=== PATIENT | male | born 1960 | race Caucasian/White ===

== ENCOUNTER 2017-02-27 10:54 | Emergency (ER) | payer MEDICAID ==
[2017-02-27] MEDS ORDERED: Albuterol/Ipratropium 3.0-0.5 MG/3 ML Neb Soln NEB ONE ×2 (11:02→11:28)
[2017-02-27] MEDS ORDERED: predniSONE 20 MG Tab PO ONE (11:02)
[2017-02-27] MEDS ORDERED: predniSONE 10 MG Tab PO ONE (11:03)
--- NOTE | 2017-02-27 11:14 | EDM.PDOC ---
ED HPI GENERAL MEDICAL PROBLEM - General Chief Complaint: Respiratory Problem Stated Complaint: ASTHMA PROBLEMS Time Seen by Provider: 02/27/17 11:00 - History of Present Illness INITIAL COMMENTS - FREE TEXT/NARRATIVE: HISTORY AND PHYSICAL: History of present illness: This 57-year-old white male presents with a concern of shortness of breath and wheezing he states his asthmatic exacerbation related to recent grass cutting his known history of asthma and uses an inhaler and nebulizer at home. He denies chest pain fever chills nausea vomiting or other complaints Review of systems: As per history of present illness and below otherwise all systems reviewed and negative. Past medical history: As per history of present illness and as reviewed below otherwise noncontributory. Surgical history: As per history of present illness and as reviewed below otherwise noncontributory. Social history: No reported history of drug or alcohol abuse. Family history: As per history of present illness and as reviewed below otherwise noncontributory. Physical exam: HEENT: Atraumatic, normocephalic, pupils reactive, negative for conjunctival pallor or scleral icterus, mucous membranes moist, throat clear, neck supple, nontender, trachea midline. Lungs: Slightly diminished with scattered and expiratory wheezing no rhonchi no crackles, breath sounds equal bilaterally, chest nontender. Heart: S1S2, regular, negative for clicks, rubs, or JVD. Abdomen: Soft, nondistended, nontender. Negative for masses or hepatosplenomegaly. Negative for costovertebral tenderness. Pelvis: Stable nontender. Genitourinary: Deferred. Rectal: Deferred. Extremities: Atraumatic, negative for cords or calf pain. Neurovascular unremarkable. Neuro: Awake, alert, oriented. Cranial nerves II through XII unremarkable. Cerebellum unremarkable. Motor and sensory unremarkable throughout. Exam nonfocal. Diagnostics: None Therapeutics: Albuterol ipratropium nebulizer prednisone 60 mg by mouth Impression: #1 acute asthmatic exacerbation Definitive disposition and diagnosis as appropriate pending reevaluation and review of above. Bilateral Shoulder Pain Score (Numeric/FACES): 4 - Related Data Allergies Allergy/AdvReac Type Severity Reaction Status Date / Time hydrocodone Allergy Hives Verified 02/27/17 11:07 ketorolac [From Toradol] Allergy Cannot Verified 02/27/17 11:07 Remember tamsulosin Allergy Cannot Verified 02/27/17 11:07 Remember theophylline Allergy Cannot Verified 02/27/17 11:07 Remember tramadol Allergy Hives Verified 02/27/17 11:07 Home Meds: Home Meds Albuterol Sulfate [Albuterol Sulfate HFA] 2 puff INH QID PRN 12/30/14 [History] Fluticasone/Salmeterol [Advair 500-50] 1 puff INH BID 12/30/14 [History] Glucosamine/D3/Boswellia Gloria [Osteo Bi-Flex Caplet] 1 tab PO DAILY 12/30/14 [ History] Lisinopril 10 mg PO DAILY 12/30/14 [History] Testosterone Cypionate 200 mg IM Q14D 12/30/14 [History] amLODIPine [Norvasc] 10 mg PO DAILY 12/30/14 [History] atorvaSTATin [Lipitor] 20 mg PO BEDTIME 12/30/14 [History] Montelukast [Singulair] 10 mg PO BEDTIME 10/07/15 [History] Albuterol Sulfate 2.5 mg IH Q6H PRN 06/16/16 [History] Benztropine [Cogentin] 0.5 mg PO BID 06/16/16 [History] Calcium Carbonate/Vitamin D3 [Calcium 500 + Vit D 400] 2 each PO DAILY 06/16/16 [History] Cholecalciferol (Vitamin D3) [D3-2000] 2,000 unit PO DAILY 06/16/16 [History] Denosumab [Prolia] 60 mg SUBCUT Q180D 06/16/16 [History] Ipratropium/Albuterol Sulfate [Iprat-Albut 0.5-3(2.5) mg/3 ml] 3 ml IH QID 06/16 [History] Magnesium Oxide 250 mg PO DAILY 06/16/16 [History] Omeprazole 20 mg PO ACBREAKFAST 06/16/16 [History] Pregabalin [Lyrica] 50 mg PO BID 06/16/16 [History] predniSONE 5 mg PO Q48H 06/16/16 [History] risperiDONE 1.5 mg PO DAILY 06/16/16 [History] risperiDONE 2 mg PO BEDTIME 06/16/16 [History] sitaGLIPtin Phos/Metformin HCl [Janumet Xr 50-1,000 mg Tablet] 2 each PO WITHDINNER 06/16/16 [History] traZODone 100 mg PO BEDTIME 06/16/16 [History] Amoxicillin/Clavulanate K [Augmentin 875 MG/125 MG] 1 tab PO Q12HR #20 tablet [Rx] Metoprolol Succinate [Toprol XL] 50 mg PO BEDTIME #30 tab.er 06/21/16 [Rx] Sulfamethoxazole/Trimethoprim [Bactrim Ds Tablet] 1 each PO Q12H #20 tablet [Rx] oxyCODONE 5 mg PO Q4H PRN #15 tablet 06/21/16 [Rx] Past Medical History HEENT History: Reports: Impaired Vision Other HEENT History: wears glasses Cardiovascular History: Reports: Hypertension Respiratory History: Reports: Asthma Gastrointestinal History: Reports: GERD Genitourinary History: Reports: None Musculoskeletal History: Reports: Osteoarthritis Neurological History: Reports: Neuropathy, Diabetic Psychiatric History: Reports: None Endocrine/Metabolic History: Reports: Diabetes, Type II, Obesity/BMI 30+ Hematologic History: Reports: None Immunologic History: Reports: None Oncologic (Cancer) History: Reports: None Dermatologic History: Reports: Other (See Below) - Infectious Disease History Infectious Disease History: Reports: MRSA - Past Surgical History GI Surgical History: Reports: Other (See Below) Musculoskeletal Surgical History: Reports: Other (See Below) Social & Family History - Family History Family Medical History: Noncontributory - Tobacco Use Smoking Status *Q: Former Smoker Years of Tobacco use: 30 Packs/Tins Daily: 3 Used Tobacco, but Quit: Yes Month Tobacco Last Used: "years ago" Second Hand Smoke Exposure: No - Caffeine Use Caffeine Use: Reports: None - Alcohol Use Days Per Week of Alcohol Use: 0 - Recreational Drug Use Recreational Drug Use: No Drug Use in Last 12 Months: Yes Recreational Drug Type: Reports: Marijuana/Hashish (Weekly use) Recreational Drug Use Frequency: Weekly - Living Situation & Occupation Living situation: Reports: Single ED ROS GENERAL - Review of Systems Review Of Systems: ROS reveals no pertinent complaints other than HPI. ED EXAM, GENERAL - Physical Exam Exam: See Below (See dictation) Course - Vital Signs Last Recorded V/S: Last Vital Signs Temp 36.3 C 02/27/17 11:03 Pulse 84 02/27/17 11:03 Resp 22 H 02/27/17 11:03 BP 115/73 02/27/17 11:03 Pulse Ox 90 L 02/27/17 11:03 - Orders/Labs/Meds Orders: Active Orders 24 hr Category Date Time Status RT Aerosol Therapy [RC] ASDIRECTED Care 02/27/17 11:02 Active Meds: Medications Discontinued Medications Generic Name Dose Route Start Last Admin Trade Name Ericka PRN Reason Stop Dose Admin Albuterol/Ipratropium 3 ml 02/27/17 11:02 02/27/17 11:11 Duoneb 3.0-0.5 Mg/3 Ml NEB 02/27/17 11:03 3 ml ONETIME ONE Administration Prednisone 20 mg 02/27/17 11:02 Prednisone PO 02/27/17 11:03 ONETIME ONE Prednisone 60 mg 02/27/17 11:03 Prednisone PO 02/27/17 11:04 ONETIME ONE Departure - Departure Time of Disposition: 11:13 Disposition: Home, Self-Care 01 Condition: good Clinical Impression: Acute asthma - Discharge Information Forms: ED Department Discharge Additional Instructions: The following information is given to patients seen in the emergency department who are being discharged to home. This information is to outline your options for follow-up care. We provide all patients seen in our emergency department with a follow-up referral. The need for follow-up, as well as the timing and circumstances, are variable depending upon the specifics of your emergency department visit. If you don't have a primary care physician on staff, we will provide you with a referral. We always advise you to contact your personal physician following an emergency department visit to inform them of the circumstance of the visit and for follow-up with them and/or the need for any referrals to a consulting specialist. The emergency department will also refer you to a specialist when appropriate. This referral assures that you have the opportunity for followup care with a specialist. All of these measure are taken in an effort to provide you with optimal care, which includes your followup. Under all circumstances we always encourage you to contact your private physician who remains a resource for coordinating your care. When calling for followup care, please make the office aware that this follow-up is from your recent emergency room visit. If for any reason you are refused follow-up, please contact the [facility] emergency department at and asked to speak to the emergency department charge nurse. Medrol as prescribed continue inhaler as directed followup primary medical doctor 24-48 hours return as needed as discussed - My Orders Last 24 Hours: My Active Orders 02/27/17 11:02 RT Aerosol Therapy [RC] ASDIRECTED - Assessment/Plan Last 24 Hours: My Active Orders 02/27/17 11:02 RT Aerosol Therapy [RC] ASDIRECTED
[2017-02-27 12:11] VITALS: BP 112/68
== END 2017-02-27 12:00 | disposition home or self-care (01) ==
LOC: MW.ED 10:54
DX: J45.901 Unspecified asthma with (acute) exacerbation (principal); I10 Essential (primary) hypertension; K21.9 Gastro-esophageal reflux disease without esophagitis; E11.40 Type 2 diabetes mellitus with diabetic neuropathy, unspecified; E66.9 Obesity, unspecified; Z68.37 Body mass index [BMI] 37.0-37.9, adult; Z79.899 Other long term (current) drug therapy; Z88.8 Allergy status to other drugs, medicaments and biological substances; Z87.891 Personal history of nicotine dependence
CPT/HCPCS: 94640; 94664; 99284; A9270; 99283

== ENCOUNTER 2017-06-23 15:44 | Emergency (ER) | payer MEDICAID ==
[2017-06-23] MEDS ORDERED: Albuterol/Ipratropium 3.0-0.5 MG/3 ML Neb Soln NEB ONE ×2 (15:51→16:30)
--- NOTE | 2017-06-23 15:54 | EDM.PDOC ---
ED HPI GENERAL MEDICAL PROBLEM - General Chief Complaint: Respiratory Problem Stated Complaint: SOB Time Seen by Provider: 06/23/17 15:52 Source of Information: Reports: Patient History Limitations: Reports: No Limitations - History of Present Illness INITIAL COMMENTS - FREE TEXT/NARRATIVE: HISTORY AND PHYSICAL: []57-year-old male presenting with shortness of breath his history of asthma History of Present Illness: [] States it has happened about 5 times over the last 2 days' Denies any chest pain Review of Systems: As per history of present illness and below otherwise all systems reviewed and negative. Past medical history: As per history of present illness and as reviewed below otherwise noncontributory. Surgical history: As per history of present illness and as reviewed below otherwise noncontributory. Social history: No reported history of drug or alcohol abuse. Family history: As per history of present illness and as reviewed below otherwise noncontributory. Physical exam: Alert gentleman who is answering questions about 4 word sentences, speaks well once the oxygen is on. He is nontoxic in appearance. HEENT: Atraumatic, normocehpalic, pupils reactive, negative for conjunctival pallor or scleral icterus, mucous membranes moist, throat clear, neck supple, nontender, trachea midline. Lungs: Rhonchi bibasilar, breath sounds equal bilaterally, chest non tender. Heart: S1S2, regular, negative for clicks, rubs, or JVD. Abdomen: Soft, nondistended, nontender. Negative for masses or hepatossplenmegaly. Negative for costovertebral tenderness. Pelvis: Stable nontender. Genitourinary: Deferred. Rectal: Deferred Extremities: Atraumatic, negative for cords or calf pain. Neurovascular unremarkable. Neuro: Awake, alert, oriented. Cranial nerves II through XII unremarkable. Cerebellum unremarkable. Motor and sensory unremarkable throughout. Exam nonfocal. After breathing treatment patient did not feel any better. Reevaluation identifies slightly improved air exchange, however now there is anterior wheezing. Second treatment DuoNeb improved air exchange no wheezing noted anteriorly slight crackle to posterior bases bilaterally Diagnostics: [CBC CMP chest x-ray] Therapeutics: []DuoNeb Impression: [Asthma exacerbation] Lower bronchiolitis Plan: []Discharge to home Begin azithromycin Follow-up with your primary care in 2 days Definitive disposition and diagnosis as appropriate pending reevaluation and review of above. - Related Data Allergies Allergy/AdvReac Type Severity Reaction Status Date / Time hydrocodone Allergy Hives Verified 06/23/17 15:54 ketorolac [From Toradol] Allergy Cannot Verified 06/23/17 15:54 Remember tamsulosin Allergy Cannot Verified 06/23/17 15:54 Remember theophylline Allergy Cannot Verified 06/23/17 15:54 Remember tramadol Allergy Hives Verified 06/23/17 15:54 Home Meds: Home Meds Albuterol Sulfate [Albuterol Sulfate HFA] 2 puff INH QID PRN 12/30/14 [History] Fluticasone/Salmeterol [Advair 500-50] 1 puff INH BID 12/30/14 [History] Lisinopril 10 mg PO DAILY 12/30/14 [History] Testosterone Cypionate 200 mg IM Q14D 12/30/14 [History] amLODIPine [Norvasc] 10 mg PO DAILY 12/30/14 [History] atorvaSTATin [Lipitor] 20 mg PO BEDTIME 12/30/14 [History] Montelukast [Singulair] 10 mg PO BEDTIME 10/07/15 [History] Albuterol Sulfate 2.5 mg IH Q6H PRN 06/16/16 [History] Calcium Carbonate/Vitamin D3 [Calcium 500 + Vit D 400] 2 each PO DAILY 06/16/16 [History] Cholecalciferol (Vitamin D3) [D3-2000] 2,000 unit PO DAILY 06/16/16 [History] Ipratropium/Albuterol Sulfate [Iprat-Albut 0.5-3(2.5) mg/3 ml] 3 ml IH QID 06/16 [History] Magnesium Oxide 250 mg PO DAILY 06/16/16 [History] Omeprazole 20 mg PO ACBREAKFAST 06/16/16 [History] Pregabalin [Lyrica] 50 mg PO BID 06/16/16 [History] risperiDONE 1.5 mg PO DAILY 06/16/16 [History] risperiDONE 2 mg PO BEDTIME 06/16/16 [History] sitaGLIPtin Phos/Metformin HCl [Janumet Xr 50-1,000 mg Tablet] 2 each PO WITHDINNER 06/16/16 [History] Metoprolol Succinate [Toprol XL] 50 mg PO BEDTIME #30 tab.er 06/21/16 [Rx] Azithromycin [Zithromax] 250 mg PO ONETIME #6 tablet 06/23/17 [Rx] Past Medical History HEENT History: Reports: Impaired Vision Other HEENT History: wears glasses Cardiovascular History: Reports: Hypertension Respiratory History: Reports: Asthma Gastrointestinal History: Reports: GERD Genitourinary History: Reports: None Musculoskeletal History: Reports: Osteoarthritis Neurological History: Reports: Neuropathy, Diabetic Psychiatric History: Reports: None Endocrine/Metabolic History: Reports: Diabetes, Type II, Obesity/BMI 30+ Hematologic History: Reports: None Immunologic History: Reports: None Oncologic (Cancer) History: Reports: None Dermatologic History: Reports: Other (See Below) - Infectious Disease History Infectious Disease History: Reports: MRSA - Past Surgical History GI Surgical History: Reports: Other (See Below) Musculoskeletal Surgical History: Reports: Other (See Below) Social & Family History - Family History Family Medical History: Noncontributory - Tobacco Use Smoking Status *Q: Former Smoker Years of Tobacco use: 30 Packs/Tins Daily: 3 Used Tobacco, but Quit: Yes Month Tobacco Last Used: "years ago" Second Hand Smoke Exposure: No - Caffeine Use Caffeine Use: Reports: None - Alcohol Use Days Per Week of Alcohol Use: 0 - Recreational Drug Use Recreational Drug Use: No Drug Use in Last 12 Months: Yes Recreational Drug Type: Reports: Marijuana/Hashish (Weekly use) Recreational Drug Use Frequency: Weekly - Living Situation & Occupation Living situation: Reports: Single ED ROS GENERAL - Review of Systems Review Of Systems: ROS reveals no pertinent complaints other than HPI. ED EXAM, GENERAL - Physical Exam Exam: See Below (See dictation) EKG INTERPRETATION EKG Date: 06/23/17 Rhythm: Other (Sinus tachycardia) Rate (Beats/Min): 109 Comparison: No Change Course - Vital Signs Last Recorded V/S: Last Vital Signs Temp 36.0 C 06/23/17 15:50 Pulse 125 H 06/23/17 15:50 Resp 32 H 06/23/17 15:50 BP 132/67 06/23/17 15:50 Pulse Ox 91 L 06/23/17 15:50 - Orders/Labs/Meds Orders: Active Orders 24 hr Category Date Time Status EKG Documentation Completion [RC] STAT Care 06/23/17 16:11 Active RT Aerosol Therapy [RC] ASDIRECTED Care 06/23/17 15:52 Active RT Aerosol Therapy [RC] ASDIRECTED Care 06/23/17 16:30 Active Chest 2V [CR] Stat Exams 06/23/17 15:51 Taken Sodium Chloride 0.9% [Saline Flush] Med 06/23/17 15:55 Active 10 ml FLUSH ASDIRECTED PRN Sodium Chloride 0.9% [Saline Flush] Med 06/23/17 15:55 Active 2.5 ml FLUSH ASDIRECTED PRN Saline Lock Insert [OM.PC] Stat Oth 06/23/17 15:55 Ordered Medication Orders Sodium Chloride (Saline Flush) 10 ml FLUSH ASDIRECTED PRN PRN Reason: Keep Vein Open Sodium Chloride (Saline Flush) 2.5 ml FLUSH ASDIRECTED PRN PRN Reason: Keep Vein Open Labs: Laboratory Tests 06/23/17 06/23/17 06/23/17 Range/Units 16:18 16:18 16:18 WBC 9.76 (4.0-11.0) K/uL RBC 5.64 (4.50-5.90) M/uL Hgb 16.5 (13.0-17.0) g/dL Hct 50.0 (38.0-50.0) % MCV 88.7 (80.0-98.0) fL MCH 29.3 (27.0-32.0) pg MCHC 33.0 (31.0-37.0) g/dL RDW Std Deviation 49.4 (28.0-62.0) fl RDW Coeff of Rober 15 (11.0-15.0) % Plt Count 198 (150-400) K/uL MPV 10.90 (7.40-12.00) fL Neut % (Auto) 60.2 (48.0-80.0) % Lymph % (Auto) 24.6 (16.0-40.0) % Candler % (Auto) 8.2 (0.0-15.0) % Eos % (Auto) 6.7 (0.0-7.0) % Baso % (Auto) 0.3 (0.0-1.5) % Neut # (Auto) 5.9 H (1.4-5.7) K/uL Lymph # (Auto) 2.4 (0.6-2.4) K/uL Candler # (Auto) 0.8 (0.0-0.8) K/uL Eos # (Auto) 0.7 (0.0-0.7) K/uL Baso # (Auto) 0.0 (0.0-0.1) K/uL Nucleated RBC % 0.0 /100WBC Nucleated RBCs # 0 K/uL Sodium 137 (136-146) mmol/L Potassium 3.7 (3.5-5.1) mmol/L Chloride 107 (98-110) mmol/L Carbon Dioxide 21 (21-31) mmol/L BUN 10 (6.0-23.0) mg/dL Creatinine 0.7 (0.6-1.5) mg/dL Est Cr Clr Drug Dosing 115.03 mL/min Estimated GFR (MDRD) > 60.0 ml/min Glucose 120 H (60-110) mg/dL Calcium 9.2 (8.8-10.8) mg/dL Total Bilirubin 0.6 (0.1-1.5) mg/dL AST 24 (5-40) IU/L ALT 34 (8-54) IU/L Alkaline Phosphatase 72 (40-150) Troponin I < 0.10 (0.0-0.29) NG/ML Total Protein 6.8 (6.0-8.0) g/dL Albumin 3.8 (3.5-5.0) g/dL Globulin 3.0 (2.0-3.5) g/dL Albumin/Globulin Ratio 1.3 (1.3-2.8) Meds: Medications Generic Name Dose Route Start Last Admin Trade Name Ericka PRN Reason Stop Dose Admin Sodium Chloride 10 ml 06/23/17 15:55 Saline Flush FLUSH ASDIRECTED PRN Keep Vein Open Sodium Chloride 2.5 ml 06/23/17 15:55 Saline Flush FLUSH ASDIRECTED PRN Keep Vein Open Discontinued Medications Generic Name Dose Route Start Last Admin Trade Name Andreiq PRN Reason Stop Dose Admin Albuterol/Ipratropium 3 ml 06/23/17 15:51 06/23/17 16:20 Duoneb 3.0-0.5 Mg/3 Ml NEB 06/23/17 15:52 3 ml ONETIME ONE Administration Albuterol/Ipratropium 3 ml 06/23/17 16:30 06/23/17 16:37 Duoneb 3.0-0.5 Mg/3 Ml NEB 06/23/17 16:31 3 ml ONETIME ONE Administration Methylprednisolone Sodium Succinate 125 mg 06/23/17 15:55 06/23/17 16:33 Solu-Medrol IVPUSH 06/23/17 15:56 125 mg ONETIME ONE Administration Departure - Departure Time of Disposition: 17:29 Disposition: Home, Self-Care 01 Condition: Good Clinical Impression: Bronchitis with asthma, acute - Discharge Information Prescriptions: Azithromycin [Zithromax] 250 mg PO ONETIME #6 tablet Referrals: PCP,None [Primary Care Provider] - Forms: ED Department Discharge Additional Instructions: The following information is given to patients seen in the emergency department who are being discharged to home. This information is to outline your options for follow-up care. We provide all patients seen in our emergency department with a follow-up referral. The need for follow-up, as well as the timing and circumstances, are variable depending upon the specifics of your emergency department visit. If you don't have a primary care physician on staff, we will provide you with a referral. We always advise you to contact your personal physician following an emergency department visit to inform them of the circumstance of the visit and for follow-up with them and/or the need for any referrals to a consulting specialist. The emergency department will also refer you to a specialist when appropriate. This referral assures that you have the opportunity for followup care with a specialist. All of these measure are taken in an effort to provide you with optimal care, which includes your followup. Under all circumstances we always encourage you to contact your private physician who remains a resource for coordinating your care. When calling for followup care, please make the office aware that this follow-up is from your recent emergency room visit. If for any reason you are refused follow-up, please contact the [facility] emergency department at and asked to speak to the emergency department charge nurse. You were given to respiratory treatments while in the emergency room You were given Solu-Medrol 125 mg IV Prescription for Zithromax was electronically sent to your pharmacy Follow-up early next week with your primary care provider Worsening of symptoms over the weekend please return for reevaluation - My Orders Last 24 Hours: My Active Orders 06/23/17 15:51 Chest 2V [CR] Stat 06/23/17 15:52 RT Aerosol Therapy [RC] ASDIRECTED 06/23/17 15:55 Sodium Chloride 0.9% [Saline Flush] 10 ml FLUSH ASDIRECTED PRN Sodium Chloride 0.9% [Saline Flush] 2.5 ml FLUSH ASDIRECTED PRN Saline Lock Insert [OM.PC] Stat 06/23/17 16:11 EKG Documentation Completion [RC] STAT 06/23/17 16:30 RT Aerosol Therapy [RC] ASDIRECTED - Assessment/Plan Last 24 Hours: My Active Orders 06/23/17 15:51 Chest 2V [CR] Stat 06/23/17 15:52 RT Aerosol Therapy [RC] ASDIRECTED 06/23/17 15:55 Sodium Chloride 0.9% [Saline Flush] 10 ml FLUSH ASDIRECTED PRN Sodium Chloride 0.9% [Saline Flush] 2.5 ml FLUSH ASDIRECTED PRN Saline Lock Insert [OM.PC] Stat 06/23/17 16:11 EKG Documentation Completion [RC] STAT 06/23/17 16:30 RT Aerosol Therapy [RC] ASDIRECTED
[2017-06-23] MEDS ORDERED: Sodium Chloride 0.9% 2.5 ML Syringe FLUSH PRN (15:55)
[2017-06-23] MEDS ORDERED: methylPREDNISolone Sodium Succinate 125 MG/2 ML SDV IVPUSH ONE (15:55)
[2017-06-23] MEDS ORDERED: Sodium Chloride 0.9% 10 ML Syringe FLUSH PRN (15:55)
[2017-06-23 16:50] LABS: CHLORIDE,CL 107 mmol/L (98-110); SODIUM,NA 137 mmol/L (136-146)
[2017-06-23] MEDS ORDERED: Azithromycin 250 MG Tab PO ONE (17:32)
[2017-06-23 18:36] VITALS: BP 124/74
--- NOTE | 2017-06-26 16:00 | CR ---
EXAM DATE: 06/23/17 PATIENT'S AGE: 57 Patient: OMAR OROURKE Facility: [place], [place] Site . Site : 1960 Study: XRay Chest [id number]/22/2017 5:07:42 PM Ordering Physician: Doctor Khan Final Report: INDICATION: Chest pain, shortness of breath. TECHNIQUE: Chest radiograph 2 views COMPARISON: 07/28/2015. FINDINGS: Mildly coarse lung markings. Heart and mediastinal contours are unchanged. No pneumothorax or pleural effusion. Faintly increased linear densities at the medial right lung base and left retrocardiac region. Minimal peribronchial thickening suspected. Minimal anterior wedge defect in the mid thoracic spine. IMPRESSION: 1. Minimal increased linear densities at the medial lung bases with peribronchial thickening suspected, consider lower lobe bronchitis. 2. No focal airspace consolidation or imaging evidence of congestive heart failure pattern. Dictated by J Carlos Hancock MD @ 06/23/2017 5:26:14 PM Dictated by: J Carlos Hancock MD @ 06/23/2017 17:26:19 (Electronic Signature) Report Signed by Proxy. [facility] SHOREBerenice
== END 2017-06-23 18:15 | disposition home or self-care (01) ==
LOC: MW.ED 15:44
DX: J45.901 Unspecified asthma with (acute) exacerbation (principal); J21.9 Acute bronchiolitis, unspecified; I10 Essential (primary) hypertension; E11.9 Type 2 diabetes mellitus without complications; E66.9 Obesity, unspecified; Z88.6 Allergy status to analgesic agent; Z88.5 Allergy status to narcotic agent; Z88.8 Allergy status to other drugs, medicaments and biological substances; Z79.899 Other long term (current) drug therapy; Z87.891 Personal history of nicotine dependence; Z68.37 Body mass index [BMI] 37.0-37.9, adult
CPT/HCPCS: 36415; 71020; 80053; 84484; 85025; 93005; 94664; 96374; 99285; A9270; J2930; 99283

== ENCOUNTER 2018-06-21 09:45 | Day surgery (SDC) | payer MEDICAID ==
[~2018-06-21 09:45] MED LIST: Lactated Ringers 1,000 ML IV SCH; Midazolam 1 MG/ML 2 ML SDV ONE; Propofol 200 MG/20 ML SDV ONE; fentaNYL 100 MCG/2 ML SDV ONE
--- NOTE | 2018-06-21 10:21 | PCM.PREANE ---
Preanesthetic Assessment - Anesthesia/Transfusion/Family Hx Anesthesia History: Prior Anesthesia Without Reaction Family History of Anesthesia Reaction: No Transfusion History: Prior Transfusion Without Reaction Intubation History: Unknown - Review of Systems General: No Symptoms Pulmonary: No Symptoms Cardiovascular: No Symptoms Gastrointestinal: Other (diverticulosis, h/o cecum polyp '11) Neurological: No Symptoms Other: Reports: None - Physical Assessment Height: 1.75 m Weight: 103.873 kg ASA Class: 3 Mental Status: Alert & Oriented x3 Airway Class: Mallampati = 2 Dentition: Reports: Edentulous Thyro-Mental Finger Breadths: 3 Mouth Opening Finger Breadths: 2 ROM/Head Extension: Full Lungs: Normal Respiratory Effort, Wheezing (difuse, bilateral, sats 93 % on room air) Cardiovascular: Regular Rate, Regular Rhythm - Allergies Allergies/Adverse Reactions: Allergies Allergy/AdvReac Type Severity Reaction Status Date / Time hydrocodone Allergy Hives Verified 06/23/17 15:54 ketorolac [From Toradol] Allergy Cannot Verified 06/23/17 15:54 Remember sucralfate [From Carafate] Allergy Hives Verified 06/18/18 15:07 tamsulosin Allergy Other Verified 06/18/18 15:07 theophylline Allergy Cannot Verified 06/23/17 15:54 Remember tramadol Allergy Hives Verified 06/18/18 15:07 - Blood Blood Available: No - Anesthesia Plan Pre-Op Medication Ordered: None - Acknowledgements Anesthesia Type Planned: MAC Pt an Appropriate Candidate for the Planned Anesthesia: Yes Alternatives and Risks of Anesthesia Discussed w Pt/Guardian: Yes Pt/Guardian Understands and Agrees with Anesthesia Plan: Yes PreAnesthesia Questionnaire HEENT History: Reports: Allergic Rhinitis, Cataract, Impaired Vision Other HEENT History: wears glasses, has no teeth- no dentures Cardiovascular History: Reports: High Cholesterol, Hypertension Respiratory History: Reports: Asthma Gastrointestinal History: Reports: Colon Polyp, Diverticulosis, GERD, Hiatal Hernia Genitourinary History: Reports: None Musculoskeletal History: Reports: Fracture, Osteoarthritis Other Musculoskeletal History: hx of fx leg Neurological History: Reports: Neuropathy, Diabetic, Other (See Below) Other Neuro History: 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- takes Benztropine Psychiatric History: Reports: Bipolar Endocrine/Metabolic History: Reports: Diabetes, Type II (glucose level 118 ( [place])), Obesity/BMI 30+, Osteoporosis Hematologic History: Reports: Blood Transfusion(s) Immunologic History: Reports: Immunosuppression Other Immunologic History: has been taking prednisone daily- currently cutting down to every 3 days Oncologic (Cancer) History: Reports: None Dermatologic History: Reports: Other (See Below) Other Dermatologic History: debridement of right leg abscess - Infectious Disease History Infectious Disease History: Reports: MRSA - Past Surgical History HEENT Surgical History: Reports: Cataract Surgery Cardiovascular Surgical History: Reports: None GI Surgical History: Reports: Colonoscopy (, , ), EGD Endocrine Surgical History: Reports: None Neurological Surgical History: Reports: None Musculoskeletal Surgical History: Reports: ORIF, Other (See Below) Other Musculoskeletal Surgeries/Procedures:: I&D R calf, ORIF right leg- hardware removed - SUBSTANCE USE Smoking Status *Q: Former Smoker (quit ) Tobacco Use Within Last Twelve Months: No Recreational Drug Use History: No - HOME MEDS Home Medications: Home Meds Fluticasone/Salmeterol [Advair 500-50] 1 puff INH BID 12/30/14 [History] Lisinopril 10 mg PO DAILY 12/30/14 [History] Testosterone Cypionate 200 mg IM Q14D 12/30/14 [History] amLODIPine [Norvasc] 10 mg PO QAM 12/30/14 [History] atorvaSTATin [Lipitor] 20 mg PO BEDTIME 12/30/14 [History] Montelukast [Singulair] 10 mg PO BEDTIME 10/07/15 [History] Calcium Carbonate/Vitamin D3 [Calcium 500 + Vit D 400] 2 each PO DAILY 06/16/16 [History] Cholecalciferol (Vitamin D3) [D3-2000] 2,000 unit PO DAILY 06/16/16 [History] Ipratropium/Albuterol Sulfate [Iprat-Albut 0.5-3(2.5) mg/3 ml] 3 ml IH QID PRN 06/16/16 [History] Omeprazole 40 mg PO ACBREAKFAST 06/16/16 [History] Pregabalin [Lyrica] 50 mg PO BID 06/16/16 [History] risperiDONE 1.5 mg PO QAM 06/16/16 [History] risperiDONE 2 mg PO BEDTIME 06/16/16 [History] sitaGLIPtin Phos/Metformin HCl [Janumet Xr 50-1,000 mg Tablet] 2 tab PO WITHDINNER 06/16/16 [History] Metoprolol Succinate [Toprol XL] 50 mg PO BEDTIME #30 tab.er 06/21/16 [Rx] Albuterol [Proventil HFA] 1 puff INH ASDIRECTED PRN 06/18/18 [History] Benztropine Mesylate 0.25 mg PO BID 06/18/18 [History] predniSONE 5 mg PO ASDIRECTED 06/18/18 [History] traZODone HCl [Trazodone HCl] 100 mg PO BEDTIME 06/18/18 [History] - CURRENT (IN HOUSE) MEDS Current Meds: Current Medications Lactated Ringer's (Ringers, Lactated) 1,000 mls @ 125 mls/hr IV ASDIRECTED DAMIEN Discontinued Medications Fentanyl (Sublimaze) Confirm Administered Dose 100 mcg .ROUTE .STK-MED ONE Stop: 06/21/18 07:27 Midazolam HCl (Versed 1 Mg/Ml) Confirm Administered Dose 2 mg .ROUTE .STK-MED ONE Stop: 06/21/18 07:27 Propofol (Diprivan 20 Ml) Confirm Administered Dose 200 mg .ROUTE .STK-MED ONE Stop: 06/21/18 07:27
[2018-06-21] MEDS ORDERED: Albuterol/Ipratropium 3.0-0.5 MG/3 ML Neb Soln NEB ONE (10:23)
[2018-06-21] MEDS ORDERED: Albuterol/Ipratropium 3.0-0.5 MG/3 ML Neb Soln ONE (10:29)
[2018-06-21] MEDS ORDERED: Sodium Chloride 0.9% 10 ML Syringe FLUSH PRN (11:38)
[2018-06-21] MEDS ORDERED: Sodium Chloride 0.9% 2.5 ML Syringe FLUSH PRN (11:38)
--- NOTE | 2018-06-21 11:40 | PCM.OPNOTE ---
- General Post-Op/Procedure Note Date of Surgery/Procedure: 06/21/18 Operative Procedure(s): Colonoscopy w/ cold rectal polypectomy Pre Op Diagnosis: Hx of colon polyps Post-Op Diagnosis: Rectal polyp. Sigmoid diverticulosis Anesthesia Technique: MAC (ASA II) Primary Surgeon: Dave Stone Psychiatric Nurse: Marvin Cross Condition: Good Free Text/Narrative:: DICTATION [id number] CPT CODE [id number]
--- NOTE | 2018-06-21 12:00 | PCM48HPAN ---
Post Anesthesia Note - EVALUATION WITHIN 48HRS OF ANESTHETIC Vital Signs in Normal Range: Yes Patient Participated in Evaluation: Yes Respiratory Function Stable: Yes Airway Patent: Yes Cardiovascular Function Stable: Yes Hydration Status Stable: Yes Pain Control Satisfactory: Yes Nausea and Vomiting Control Satisfactory: Yes Mental Status Recovered: Yes Resp Rate: 13 - COMMENTS/OBSERVATIONS Free Text/Narrative:: no anesthesia problems
[2018-06-21 13:27] VITALS: BP 113/73
--- NOTE | 2018-06-21 13:37 | OR ---
SURGEON: Dave Stone M.D. DATE OF PROCEDURE: 06/21/2018 OPERATION PERFORMED: Colonoscopy with cold rectal polypectomy. WARP TYING MACHINE TENDER: Dr. Trevino. ANESTHESIA: MAC. ASA CLASSIFICATION: III. PREOPERATIVE DIAGNOSIS: Personal history of colon polyps. POSTOPERATIVE DIAGNOSES: 1. Sigmoid diverticulosis. 2. Rectal polyp. DESCRIPTION OF PROCEDURE: The patient was taken to the endoscopy room and positioned on the endoscopy table in the left lateral decubitus position. Time-out was called for appropriate identification of the patient and procedure. Monitored anesthesia care was provided. The colonoscope was inserted into the rectum and advanced with minimal difficulty to the cecum where the colonoscope was retroflexed to visualize the ascending colon from below. The cecum was identified by internal landmarks and external pressure. The ileocecal valve was visualized, but not cannulated. The cecum, ascending colon, hepatic flexure, transverse colon, splenic flexure, and descending colon showed no tumors, polyps, diverticula, or angiodysplastic changes. Sigmoid colon demonstrates moderate diverticular change. No stricture, spasm, or bleeding was noted. One small polyp was encountered in the proximal rectum and removed with the cold biopsy forceps. The colonoscope was then retroflexed to visualize the anal orifice from above. No tumors, polyps, or acute hemorrhoidal changes were noted. The colonoscope was then straightened, the rectum aspirated, and the colonoscope removed. The patient tolerated the procedure well and was taken to recovery room in stable condition. SARIKA MENDOSA /[id number]
== END 2018-06-21 12:25 | disposition home or self-care (01) ==
LOC: MW.SDS 09:45
PROVIDERS: ATTEND Surgery
DX: Z12.11 Encounter for screening for malignant neoplasm of colon (principal); K63.5 Polyp of colon; K57.30 Diverticulosis of large intestine without perforation or abscess without bleeding; I10 Essential (primary) hypertension; E66.01 Morbid (severe) obesity due to excess calories; Z68.33 Body mass index [BMI] 33.0-33.9, adult; E78.00 Pure hypercholesterolemia, unspecified; K21.9 Gastro-esophageal reflux disease without esophagitis; Z87.891 Personal history of nicotine dependence; Z86.010 Personal history of colon polyps; Z79.899 Other long term (current) drug therapy; Z88.5 Allergy status to narcotic agent; Z88.8 Allergy status to other drugs, medicaments and biological substances
CPT/HCPCS: 45380; 82962; 94640; J2250; J2704; J3010; J7120; J7620-GY

== ENCOUNTER 2020-03-07 12:52 | Observation (INO) | payer MEDICAID ==
[2020-03-07] MEDS ORDERED: Albuterol 0.083% 2.5 MG/3 ML Neb Soln NEB ONE ×2 (12:59→14:38)
[2020-03-07] MEDS ORDERED: Albuterol/Ipratropium 3.0-0.5 MG/3 ML Neb Soln NEB ONE ×2 (12:59→17:12)
[2020-03-07] MEDS ORDERED: Sodium Chloride 0.9% 10 ML SDV IV PRN (13:00)
[2020-03-07] MEDS ORDERED: Albuterol 0.083% 2.5 MG/3 ML Neb Soln ONE (13:00)
[2020-03-07] MEDS ORDERED: Sodium Chloride 0.9% 2.5 ML Syringe FLUSH PRN (13:00)
[2020-03-07] MEDS ORDERED: Sodium Chloride 0.9% 10 ML Syringe FLUSH PRN (13:00)
[2020-03-07] MEDS ORDERED: Albuterol/Ipratropium 3.0-0.5 MG/3 ML Neb Soln ONE (13:00)
[2020-03-07] MEDS ORDERED: predniSONE 20 MG Tab PO ONE (13:01)
[2020-03-07] MEDS ORDERED: predniSONE 10 MG Tab ONE (13:03)
[2020-03-07] MEDS ORDERED: Lactated Ringers 1,000 ML IV ONE (13:05)
--- NOTE | 2020-03-07 13:17 | EDM.PDOC ---
ED HPI GENERAL MEDICAL PROBLEM - General Chief Complaint: Respiratory Problem Stated Complaint: SOB Time Seen by Provider: 03/07/20 13:15 Source of Information: Reports: Patient History Limitations: Reports: No Limitations - History of Present Illness INITIAL COMMENTS - FREE TEXT/NARRATIVE: 60-year-old male with past medical history of asthma, COPD (not on oxygen), type 2 diabetes, hypertension, schizophrenia presenting with shortness of breath. 1 day history of shortness of breath, coughing, wheezing. Took his home albuterol twice prior to arrival without relief. Denies fever, chest discomfort, hemoptysis, chills, or vomiting. Reports the symptoms are similar to his prior asthma exacerbations. No recent international travel or sick contacts. - Related Data Allergies Allergy/AdvReac Type Severity Reaction Status Date / Time hydrocodone Allergy Hives Verified 03/07/20 18:33 ketorolac [From Toradol] Allergy Cannot Verified 03/07/20 18:33 Remember sucralfate [From Carafate] Allergy Hives Verified 03/07/20 18:33 tamsulosin Allergy Other Verified 03/07/20 18:33 theophylline Allergy Cannot Verified 03/07/20 18:33 Remember tramadol Allergy Hives Verified 03/07/20 18:33 Home Meds: Home Meds Fluticasone/Salmeterol [Advair 500-50] 1 puff INH BID 12/30/14 [History] Lisinopril 10 mg PO DAILY 12/30/14 [History] Testosterone Cypionate 200 mg IM Q14D 12/30/14 [History] amLODIPine [Norvasc] 10 mg PO QAM 12/30/14 [History] atorvaSTATin [Lipitor] 20 mg PO BEDTIME 12/30/14 [History] Montelukast [Singulair] 10 mg PO BEDTIME 10/07/15 [History] Calcium Carbonate/Vitamin D3 [Calcium 500 + Vit D 400] 2 each PO DAILY 06/16/16 [History] Cholecalciferol (Vitamin D3) [D3-2000] 2,000 unit PO DAILY 06/16/16 [History] Ipratropium/Albuterol Sulfate [Iprat-Albut 0.5-3(2.5) mg/3 ml] 3 ml IH QID PRN 06/16/16 [History] Omeprazole 40 mg PO ACBREAKFAST 06/16/16 [History] Pregabalin [Lyrica] 50 mg PO BID 06/16/16 [History] risperiDONE 1.5 mg PO QAM 06/16/16 [History] risperiDONE 2 mg PO BEDTIME 06/16/16 [History] sitaGLIPtin Phos/Metformin HCl [Janumet Xr 50-1,000 mg Tablet] 2 tab PO WITHDINNER 06/16/16 [History] Albuterol [Proventil HFA] 1 puff INH ASDIRECTED PRN 06/18/18 [History] Benztropine Mesylate 0.25 mg PO BID 06/18/18 [History] traZODone HCl [Trazodone HCl] 100 mg PO BEDTIME 06/18/18 [History] predniSONE [Prednisone] 50 mg PO DAILY 5 Days #5 tablet 08/31/18 [Rx] Past Medical History HEENT History: Reports: Allergic Rhinitis, Cataract, Impaired Vision Other HEENT History: wears glasses, has no teeth- no dentures Cardiovascular History: Reports: High Cholesterol, Hypertension Respiratory History: Reports: Asthma. Denies: COPD Gastrointestinal History: Reports: Colon Polyp, Diverticulosis, GERD, Hiatal Hernia. Denies: Cirrhosis Genitourinary History: Reports: None. 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 Was taking it for ten years Oncologic (Cancer) History: Reports: None Dermatologic History: Reports: Other (See Below) Other Dermatologic History: debridement of right leg abscess - Infectious Disease History Infectious Disease History: Reports: MRSA Other Infectious Disease History: Right leg wound-healed - Past Surgical History HEENT Surgical History: Reports: Cataract Surgery Cardiovascular Surgical History: Reports: None GI Surgical History: Reports: Colonoscopy, EGD Endocrine Surgical History: Reports: None Neurological Surgical History: Reports: None Musculoskeletal Surgical History: Reports: ORIF, Other (See Below) Other Musculoskeletal Surgeries/Procedures:: I&D R calf, ORIF right leg- hardware removed Social & Family History - Family History Family Medical History: Noncontributory - Caffeine Use Caffeine Use: Reports: None - Living Situation & Occupation Living situation: Reports: Single ED ROS GENERAL - Review of Systems Review Of Systems: See Below Constitutional: Denies: Fever, Chills HEENT: Denies: Throat Pain Respiratory: Reports: Shortness of Breath, Wheezing, Cough. Denies: Pleuritic Chest Pain, Sputum, Hemoptysis Cardiovascular: Denies: Chest Pain Endocrine: Reports: No Symptoms GI/Abdominal: Denies: Abdominal Pain, Diarrhea, Nausea, Vomiting : Denies: Dysuria, Flank Pain Musculoskeletal: Denies: Back Pain Skin: Denies: Rash Neurological: Denies: Headache Psychiatric: Reports: No Symptoms Hematologic/Lymphatic: Reports: No Symptoms Immunologic: Reports: No Symptoms ED EXAM, GENERAL - Physical Exam Exam: See Below Free Text/Narrative:: Vital signs reviewed. Nursing notes reviewed. Constitutional: Awake, alert, non-distressed. Head: Normocephalic, atraumatic. Eyes: EOMI, conjunctiva normal, no discharge, no scleral icterus. Ears, Nose, Throat: External ears and nose normal, moist oral mucosa. Cardiovascular: Tachycardic, 2+ radial pulses bilaterally, capillary refill less than 2 seconds. Pulmonary: Mildly tachypneic, no accessory muscle use. Diffuse expiratory wheezing. Congested sounding cough. Abdomen/GI: Soft, nontender, nondistended, no guarding or rigidity, no masses. Musculoskeletal: No deformities. Integumentary: Appropriate color for ethnicity, warm, dry, no pallor or jaundice , no rash. Neurologic: Alert, answering questions appropriately, normal speech, no facial droop, moving all extremities well. Psychiatric: Appropriate mood and affect, normal thought process. EKG INTERPRETATION EKG Interpretation Comments: 12-Lead ECG Interpretation Acquired: 1:10 PM Rhythm: Sinus tachycardia Rate: 122 bpm [place]: Rightward axis Intervals: Normal Ectopy: None Ischemic Changes: None apparent RV Strain: No obvious RV strain pattern. ST Segments/T-Waves: No notable changes Interpretation: Unremarkable Course - Vital Signs Text/Narrative:: 60-year-old male with shortness of breath. Patient was initially tachycardic with a heart rate of 120, room air saturations 88 to 90%, afebrile, well-appearing, looks nontoxic. Differential diagnosis includes but is not limited to: Asthma exacerbation, COPD , pulmonary blossom, congestive heart failure, pneumonia, URI, anxiety state, ACS, etc. Mildly increased work of breathing. Immediately started on continuous nebulizer treatments. IV access established and labs are sent. Twelve-lead EKG is obtained, showing no acute ischemia or right ventricular strain pattern. CBC shows a mild leukocytosis. Venous blood gas is reassuring. Troponin testing is negative. Electrolyte panel and renal function are normal. D-dimer is elevated at 1.06. Obtained a chest x-ray followed by CT pulmonary angiogram study, which were negative for a pulmonary infiltrate or pulmonary embolism. Given several more rounds of nebulized bronchodilators along with IV crystalloids and oral prednisone. Patient remained persistently tachycardic and had continued wheezing after multiple rounds of nebulizer treatments. He will need to be admitted to the hospital on observation status for ongoing shortness of breath, likely due to an asthma exacerbation. Spoke with accepting hospitalist Dr. Coyne who agrees to admit to observation. Plan: Patient is stable to discharge home with outpatient primary care follow- up. Strict emergency department return precautions were provided, patient indicated understanding. All questions were answered prior to departure. Discharged in good condition. Last Recorded V/S: Last Vital Signs Temp 36.6 C 03/07/20 18:20 Pulse 125 H 03/07/20 18:20 Resp 22 H 03/07/20 18:20 BP 143/89 H 03/07/20 18:20 Pulse Ox 96 03/07/20 18:20 - Orders/Labs/Meds Orders: Active Orders 24 hr Category Date Time Status Sodium Chloride 0.9% [Normal Saline] Med 03/07/20 13:00 Active 10 ml IV ASDIRECTED PRN Sodium Chloride 0.9% [Saline Flush] Med 03/07/20 13:00 Active 10 ml FLUSH ASDIRECTED PRN Sodium Chloride 0.9% [Saline Flush] Med 03/07/20 13:00 Active 2.5 ml FLUSH ASDIRECTED PRN Peripheral IV Insertion Adult [OM.PC] Stat Oth 03/07/20 13:00 Ordered Medication Orders Albuterol/Ipratropium (Duoneb 3.0-0.5 Mg/3 Ml) 3 ml NEB Q4HR PRN PRN Reason: Shortness of Breath Amlodipine Besylate (Norvasc) 10 mg PO QAM [facility] Atorvastatin Calcium (Lipitor) 20 mg PO BEDTIME [facility] Benztropine Mesylate (Cogentin) 0.25 mg PO BID [facility] Heparin Sodium (Porcine) (Heparin Sodium) 5,000 units SUBCUT Q12H [facility] Sodium Chloride (Normal Saline) 1,000 mls @ 100 mls/hr IV STAT ONE Stop: 03/08/20 05:17 Azithromycin 500 mg/ Sodium (Chloride) 250 mls @ 250 mls/hr IV Q24H [facility] Insulin Aspart (Novolog) 0 unit SUBCUT TIDAC [facility]; Protocol Ipratropium [place] (Atrovent) 0.5 mg NEB Q6HRRT [facility] Lisinopril (Prinivil) 10 mg PO DAILY [facility] Methylprednisolone Sodium Succinate (Solu-Medrol) 20 mg IVPUSH Q12H [facility] Montelukast Sodium (Singulair) 10 mg PO BEDTIME [facility] Omeprazole (Omeprazole) 40 mg PO ACBREAKFAST [facility] Pregabalin (Lyrica) 50 mg PO BID [facility] Risperidone (Risperidal) 1.5 mg PO QAM [facility] Risperidone (Risperidal) 2 mg PO BEDTIME [facility] Sodium Chloride (Saline Flush) 10 ml FLUSH ASDIRECTED PRN PRN Reason: Keep Vein Open Last Admin: 03/07/20 14:40 Dose: 10 ml Sodium Chloride (Saline Flush) 2.5 ml FLUSH ASDIRECTED PRN PRN Reason: Keep Vein Open Last Admin: 03/07/20 14:40 Dose: 2.5 ml Sodium Chloride (Normal Saline) 10 ml IV ASDIRECTED PRN PRN Reason: IV Use Last Admin: 03/07/20 14:40 Dose: 10 ml Trazodone HCl (Trazodone Hcl) 100 mg PO BEDTIME [facility] Labs: Laboratory Tests 03/07/20 03/07/20 03/07/20 Range/Units 13:00 13:00 13:00 WBC 11.75 H (4.0-11.0) K/uL RBC 5.87 (4.50-5.90) M/uL Hgb 16.6 (13.0-17.0) g/dL Hct 52.0 H (38.0-50.0) % MCV 88.6 (80.0-98.0) fL MCH 28.3 (27.0-32.0) pg MCHC 31.9 (31.0-37.0) g/dL RDW Std Deviation 47.3 (28.0-62.0) fl RDW Coeff of Rober 15 (11.0-15.0) % Plt Count 198 (150-400) K/uL MPV 10.70 (7.40-12.00) fL Neut % (Auto) 56.1 (48.0-80.0) % Lymph % (Auto) 28.4 (16.0-40.0) % [place] % (Auto) 6.7 (0.0-15.0) % Eos % (Auto) 8.4 H (0.0-7.0) % Baso % (Auto) 0.4 (0.0-1.5) % Neut # (Auto) 6.6 H (1.4-5.7) K/uL Lymph # (Auto) 3.3 H (0.6-2.4) K/uL [place] # (Auto) 0.8 (0.0-0.8) K/uL Eos # (Auto) 1.0 H (0.0-0.7) K/uL Baso # (Auto) 0.1 (0.0-0.1) K/uL Nucleated RBC % 0.0 /100WBC Nucleated RBCs # 0 K/uL D-Dimer, Quantitative (0.0-0.50) mg/L FEU VBG pH 7.39 (7.31-7.41) VBG pCO2 39 (35-45) mmHG VBG pO2 40 (30-40) mmHG VBG HCO3 24 (22-30) mEq/L VBG Total CO2 20 L (41-51) mmol/L VBG Base Excess -1.2 (-3.0-3.0) Sodium 140 (136-148) mmol/L Potassium 3.7 (3.5-5.1) mmol/L Chloride 103 (98-107) mmol/L Carbon Dioxide 23.9 (21.0-32.0) mmol/L BUN 9 (7.0-18.0) mg/dL Creatinine 0.7 L (0.8-1.3) mg/dL Est Cr Clr Drug Dosing 125.24 mL/min Estimated GFR (MDRD) > 60.0 ml/min Glucose 139 H (74-106) mg/dL Hemoglobin A1c (4.5-6.2) % Calcium 8.0 L (8.5-10.1) mg/dL Troponin I < 0.050 (0.000-0.056) ng/mL 03/07/20 03/07/20 Range/Units 13:00 13:00 WBC (4.0-11.0) K/uL RBC (4.50-5.90) M/uL Hgb (13.0-17.0) g/dL Hct (38.0-50.0) % MCV (80.0-98.0) fL MCH (27.0-32.0) pg MCHC (31.0-37.0) g/dL RDW Std Deviation (28.0-62.0) fl RDW Coeff of Rober (11.0-15.0) % Plt Count (150-400) K/uL MPV (7.40-12.00) fL Neut % (Auto) (48.0-80.0) % Lymph % (Auto) (16.0-40.0) % [place] % (Auto) (0.0-15.0) % Eos % (Auto) (0.0-7.0) % Baso % (Auto) (0.0-1.5) % Neut # (Auto) (1.4-5.7) K/uL Lymph # (Auto) (0.6-2.4) K/uL [place] # (Auto) (0.0-0.8) K/uL Eos # (Auto) (0.0-0.7) K/uL Baso # (Auto) (0.0-0.1) K/uL Nucleated RBC % /100WBC Nucleated RBCs # K/uL D-Dimer, Quantitative 1.06 H (0.0-0.50) mg/L FEU VBG pH (7.31-7.41) VBG pCO2 (35-45) mmHG VBG pO2 (30-40) mmHG VBG HCO3 (22-30) mEq/L VBG Total CO2 (41-51) mmol/L VBG Base Excess (-3.0-3.0) Sodium (136-148) mmol/L Potassium (3.5-5.1) mmol/L Chloride (98-107) mmol/L Carbon Dioxide (21.0-32.0) mmol/L BUN (7.0-18.0) mg/dL Creatinine (0.8-1.3) mg/dL Est Cr Clr Drug Dosing mL/min Estimated GFR (MDRD) ml/min Glucose (74-106) mg/dL Hemoglobin A1c 6.4 H (4.5-6.2) % Calcium (8.5-10.1) mg/dL Troponin I (0.000-0.056) ng/mL Meds: Medications Generic Name Dose Route Start Last Admin Trade Name Freq PRN Reason Stop Dose Admin Albuterol/Ipratropium 3 ml 03/07/20 19:19 Duoneb 3.0-0.5 Mg/3 Ml NEB Q4HR PRN Shortness of Breath Amlodipine Besylate 10 mg 03/08/20 09:00 Norvasc PO QAM [facility] Atorvastatin Calcium 20 mg 03/07/20 21:00 Lipitor PO BEDTIME [facility] Benztropine Mesylate 0.25 mg 03/07/20 21:00 Cogentin PO BID [facility] Heparin Sodium (Porcine) 5,000 units 03/07/20 20:00 Heparin Sodium SUBCUT Q12H [facility] Sodium Chloride 1,000 mls @ 100 mls/hr 03/07/20 19:18 Normal Saline IV 03/08/20 05:17 STAT ONE Azithromycin 500 mg/ Sodium 250 mls @ 250 mls/hr 03/07/20 20:00 Chloride IV Q24H [facility] Insulin Aspart 0 unit 03/08/20 07:30 Novolog SUBCUT TIDAC [facility] Protocol Ipratropium [place] 0.5 mg 03/08/20 00:00 Atrovent NEB Q6HRRT [facility] Lisinopril 10 mg 03/08/20 09:00 Prinivil PO DAILY [facility] Methylprednisolone Sodium Succinate 20 mg 03/08/20 19:30 Solu-Medrol IVPUSH Q12H [facility] Montelukast Sodium 10 mg 03/07/20 21:00 Singulair PO BEDTIME [facility] Omeprazole 40 mg 03/08/20 07:30 Omeprazole PO ACBREAKFAST [facility] Pregabalin 50 mg 03/07/20 21:00 Lyrica PO BID [facility] Risperidone 1.5 mg 03/08/20 09:00 Risperidal PO QAM [facility] Risperidone 2 mg 03/07/20 21:00 Risperidal PO BEDTIME [facility] Sodium Chloride 10 ml 03/07/20 13:00 03/07/20 14:40 Saline Flush FLUSH 10 ml ASDIRECTED PRN Administration Keep Vein Open Sodium Chloride 2.5 ml 03/07/20 13:00 03/07/20 14:40 Saline Flush FLUSH 2.5 ml ASDIRECTED PRN Administration Keep Vein Open Sodium Chloride 10 ml 03/07/20 13:00 03/07/20 14:40 Normal Saline IV 10 ml ASDIRECTED PRN Administration IV Use Trazodone HCl 100 mg 03/07/20 21:00 Trazodone Hcl PO BEDTIME [facility] Discontinued Medications Generic Name Dose Route Start Last Admin Trade Name Freq PRN Reason Stop Dose Admin Albuterol 5 mg 03/07/20 12:59 03/07/20 13:18 Proventil Neb Soln NEB 03/07/20 13:00 5 mg ONETIME ONE Administration Albuterol Confirm 03/07/20 13:00 03/07/20 13:19 Proventil Neb Soln Administered 03/07/20 13:01 5 mg Dose Administration 5 mg .ROUTE .STK-MED ONE Albuterol 5 mg 03/07/20 14:38 03/07/20 14:47 Proventil Neb Soln NEB 03/07/20 14:39 5 mg ONETIME ONE Administration Albuterol/Ipratropium 6 ml 03/07/20 12:59 03/07/20 13:01 Duoneb 3.0-0.5 Mg/3 Ml NEB 03/07/20 13:00 6 ml ONETIME ONE Administration Albuterol/Ipratropium Confirm 03/07/20 13:00 03/07/20 13:17 Duoneb 3.0-0.5 Mg/3 Ml Administered 03/07/20 13:01 3 ml Dose Administration 6 ml .ROUTE .STK-MED ONE Albuterol/Ipratropium 3 ml 03/07/20 17:12 03/07/20 17:47 Duoneb 3.0-0.5 Mg/3 Ml NEB 03/07/20 17:13 3 ml ONETIME ONE Administration Lactated Ringer's 1,000 mls @ 1,000 mls/hr 03/07/20 13:05 03/07/20 14:05 Ringers, Lactated IV 03/07/20 14:04 1,000 mls/hr .BOLUS ONE Administration Iopamidol 50 ml 03/07/20 16:53 03/07/20 16:54 Isovue Multipack-370 (76%) IVPUSH 03/07/20 16:54 50 ml ONETIME ONE Administration Prednisone 60 mg 03/07/20 13:01 03/07/20 13:59 Prednisone PO 03/07/20 13:02 60 mg ONETIME ONE Administration Prednisone Confirm 03/07/20 13:03 03/07/20 14:00 Prednisone Administered 03/07/20 13:04 Not Given Dose 10 mg .ROUTE .STK-MED ONE Prednisone 40 mg 03/08/20 08:00 Prednisone PO WITHBREAKFAST [facility] Departure - Departure Time of Disposition: 17:30 Disposition: Refer to Observation Clinical Impression: Asthma exacerbation Qualifiers: Asthma severity: mild Asthma persistence: unspecified Qualified Code(s): J45.901 - Unspecified asthma with (acute) exacerbation - Discharge Information Critical Care Note - Critical Care Note Total Time (mins): 45 Comments: Critical care time is exclusive of billable procedures and the time to perform these procedures. Critical care time was used to prevent vital system organ failure and deterioration. Critical care time includes bedside management and high-complexity decision making requiring my highest level of mental preparedness and attention. This includes reviewing the patient's chart and prior medical records, ordering and reviewing interpreting laboratory studies and imaging results, interpretation of vital signs and EKG, pulse oximetry, and discussion with the admitting team along with EMS and nursing staff. 45 minutes of critical care for status asthmaticus requiring continuous nebulizer treatments followed by additional nebulizer treatments over several hours, steroids. Initially hypoxic to 88%, improved after nebulizer treatments. Serial evaluations of neurologic status and respiratory status. Requiring admission to the hospital for ongoing asthma exacerbation. Sepsis Event Note - Evaluation Sepsis Screening Result: No Definite Risk - Focused Exam Vital Signs: Vital Signs Temp Pulse Resp BP Pulse Ox 03/07/20 17:28 120 H 23 H 129/77 97 03/07/20 16:05 126 H 24 H 123/86 95 03/07/20 14:28 125 H 21 H 149/82 H 95 03/07/20 13:56 126 H 21 H 134/79 94 L 03/07/20 12:55 36.6 C 127 H 23 H 137/79 93 L Date Exam was Performed: 03/07/20 Time Exam was Performed: 20:02 - My Orders Last 24 Hours: My Active Orders 03/07/20 13:00 Sodium Chloride 0.9% [Normal Saline] 10 ml IV ASDIRECTED PRN Sodium Chloride 0.9% [Saline Flush] 10 ml FLUSH ASDIRECTED PRN Sodium Chloride 0.9% [Saline Flush] 2.5 ml FLUSH ASDIRECTED PRN Peripheral IV Insertion Adult [OM.PC] Stat - Assessment/Plan Last 24 Hours: My Active Orders 03/07/20 13:00 Sodium Chloride 0.9% [Normal Saline] 10 ml IV ASDIRECTED PRN Sodium Chloride 0.9% [Saline Flush] 10 ml FLUSH ASDIRECTED PRN Sodium Chloride 0.9% [Saline Flush] 2.5 ml FLUSH ASDIRECTED PRN Peripheral IV Insertion Adult [OM.PC] Stat
--- NOTE | 2020-03-07 13:27 | CR ---
INDICATION: Dyspnea and wheezing COMPARISON: November 01, 2018 TECHNIQUE: AP upright portable single view study FINDINGS: TUBES AND LINES: None. HEART AND MEDIASTINUM: The heart size is normal. The mediastinal contour appears normal for patient age. LUNGS AND PLEURAL SPACES: Scant linear opacities likely related to atelectasis or scarring. No consolidation, infiltrate or mass.No pleural effusion or pneumothorax. OSSEOUS STRUCTURES: Age-appropriate appearance. No acute focal finding. IMPRESSION: Scant linear opacities likely related to atelectasis or scarring. No consolidation, infiltrate or mass. Normal pleural spaces. Dictated by Kelvin Johnson MD @ Mar 07 2020 1:23PM Signed by Dr. Kelvin Johnson @ Mar 07 2020 1:25PM
[2020-03-07 13:33] LABS: BLOOD UREA NITROGEN,BUN 9 mg/dL (7.0-18.0); CARBON DIOXIDE,CO2 23.9 mmol/L (21.0-32.0); CHLORIDE,CL 103 mmol/L (98-107); GLUCOSE RANDOM 139 mg/dL (74-106); POTASSIUM,K 3.7 mmol/L (3.5-5.1); SODIUM,NA 140 mmol/L (136-148)
[2020-03-07] MEDS ORDERED: Iopamidol 755 MG/ML 500 ML Multipack Bottle IVPUSH ONE (16:53)
--- NOTE | 2020-03-07 17:17 | CT ---
CT chest Technique: Multiple axial sections through the chest were obtained. Intravenous contrast was utilized. Study has been performed as a pulmonary angiogram protocol. Findings: Pulmonary arteries are fairly well opacified. No filling defects are seen to indicate pulmonary embolism. No axillary adenopathy seen. Mediastinum and hilar regions also show no adenopathy. No pericardial thickening is seen. Small hiatal hernia is noted. Cyst is noted within the left kidney measuring 5.1 cm in size. Lung window settings were reviewed which shows scattered emphysematous change. No acute parenchymal change is seen. No pleural effusions or pneumothorax is seen. Bone window settings were reviewed. Several old healed right lower rib fractures are seen. No acute osseous finding is appreciated. Compression deformities are seen within the mid and upper thoracic spine which are most likely old. Impression: 1. Several compression deformities within the thoracic spine as well as several right lower rib fractures. These findings are felt to be old. 2. No acute pulmonary embolism is seen. 3. Emphysematous changes noted. 4. Other findings believed to be incidental as noted above. Diagnostic code #3 This report was dictated in [facility]T
--- NOTE | 2020-03-07 18:34 | PCM.HP.2 ---
<Vivian Arndt - Last Filed: 03/07/20 19:32> H&P History of Present Illness - General Date of Service: 03/07/20 Admit Problem/Dx: Admission Diagnosis/Problem Admission Diagnosis/Problem Acute asthma History Limitations: Reports: No Limitations - History of Present Illness Initial Comments - Free Text/Narative: Patient is a 60-year-old male with a significant past medical history chronic asthma with last exacerbation greater than 6 months ago requiring BiPAP, previous smoker x30 years; quit 20 years ago; presenting this afternoon for dyspnea at rest with increasing coughing shortness of breath and wheezing. Patient mentioned not being able to walk from one room to the other in his house secondary to increasing dyspnea; use multiple doses of his rescue inhaler and and noticed no resolution of symptoms. Patient presented to the ED thereafter. ED course; patient found to be in hypoxic respiratory failure/distress and tachycardic; given 4 courses of duo nebs, and placed on supplemental oxygen. EKG was sinus however tachycardic d-dimer mildly elevated however angiography showed no acute pulmonary embolism. Emphysematous changes noted however; no acute infiltrates and effusions were appreciated. Patient after receiving multiple DuoNeb treatments and on supplemental O2; began to feel better. Denies any fevers, chills, body aches any recent triggers Troponin negative Bedside: no acute respiratory distress; nunched over secondary to kyphosis but endorses feeling better now and a little "jumpy" from all the breathing treatment/steroids. mentions being on risperidone for his "anger" issues ; otherwise mentions being hungry. - Related Data Allergies/Adverse Reactions: Allergies Allergy/AdvReac Type Severity Reaction Status Date / Time hydrocodone Allergy Hives Verified 03/08/20 06:48 ketorolac [From Toradol] Allergy Cannot Verified 03/08/20 06:48 Remember sucralfate [From Carafate] Allergy Hives Verified 03/08/20 06:48 tamsulosin Allergy Other Verified 03/08/20 06:48 theophylline Allergy Cannot Verified 03/08/20 06:48 Remember tramadol Allergy Hives Verified 03/08/20 06:48 Home Medications: Home Meds Fluticasone/Salmeterol [Advair 500-50] 1 puff INH BID 12/30/14 [History] Lisinopril 10 mg PO DAILY 12/30/14 [History] Testosterone Cypionate 200 mg IM Q14D 12/30/14 [History] amLODIPine [Norvasc] 10 mg PO QAM 12/30/14 [History] atorvaSTATin [Lipitor] 20 mg PO BEDTIME 12/30/14 [History] Montelukast [Singulair] 10 mg PO BEDTIME 10/07/15 [History] Calcium Carbonate/Vitamin D3 [Calcium 500 + Vit D 400] 2 each PO DAILY 06/16/16 [History] Cholecalciferol (Vitamin D3) [D3-2000] 2,000 unit PO DAILY 06/16/16 [History] Ipratropium/Albuterol Sulfate [Iprat-Albut 0.5-3(2.5) mg/3 ml] 3 ml IH QID PRN 06/16/16 [History] Omeprazole 40 mg PO ACBREAKFAST 06/16/16 [History] Pregabalin [Lyrica] 50 mg PO BID 06/16/16 [History] risperiDONE 1.5 mg PO QAM 06/16/16 [History] risperiDONE 2 mg PO BEDTIME 06/16/16 [History] sitaGLIPtin Phos/Metformin HCl [Janumet Xr 50-1,000 mg Tablet] 2 tab PO WITHDINNER 06/16/16 [History] Albuterol [Proventil HFA] 1 puff INH ASDIRECTED PRN 06/18/18 [History] Benztropine Mesylate 0.25 mg PO BID 06/18/18 [History] traZODone HCl [Trazodone HCl] 100 mg PO BEDTIME 06/18/18 [History] Azithromycin 250 mg PO DAILY #4 tablet 03/08/20 [Rx] Metoprolol Succinate 50 mg PO BEDTIME 03/08/20 [History] guaiFENesin/Dextromethorphan [Guaifenesin Dm Syrup] 5 ml PO Q8H PRN #1 bottle [Rx] predniSONE [Prednisone] 50 mg PO DAILY 5 Days #5 tablet 03/08/20 [Rx] Past Medical History HEENT History: Reports: Allergic Rhinitis, Cataract, Impaired Vision Other HEENT History: wears glasses, has no teeth- no dentures Cardiovascular History: Reports: High Cholesterol, Hypertension Respiratory History: Reports: Asthma Gastrointestinal History: Reports: Colon Polyp, Diverticulosis, GERD, Hiatal Hernia Genitourinary History: Reports: None Musculoskeletal History: Reports: Fracture, Osteoarthritis Other Musculoskeletal History: hx of fx leg Neurological History: Reports: Neuropathy, Diabetic, Other (See Below) Other Neuro History: 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 Was taking it for ten years Oncologic (Cancer) History: Reports: None Dermatologic History: Reports: Other (See Below) Other Dermatologic History: debridement of right leg abscess - Infectious Disease History Infectious Disease History: Reports: MRSA Other Infectious Disease History: Right leg wound-healed - Past Surgical History Head Surgeries/Procedures: Reports: None HEENT Surgical History: Reports: Cataract Surgery Cardiovascular Surgical History: Reports: None Respiratory Surgical History: Reports: None GI Surgical History: Reports: Colonoscopy, EGD Endocrine Surgical History: Reports: None Neurological Surgical History: Reports: None Musculoskeletal Surgical History: Reports: ORIF, Other (See Below) Other Musculoskeletal Surgeries/Procedures:: I&D R calf, ORIF right leg- hardware removed Dermatological Surgical History: Reports: None Social & Family History - Family History Family Medical History: Noncontributory - Caffeine Use Caffeine Use: Reports: None - Living Situation & Occupation Living situation: Reports: Single H&P Review of Systems - Review of Systems: Review Of Systems: See Below General: Denies: Fever, Chills, Weakness, Fatigue HEENT: Reports: Rhinitis Pulmonary: Reports: Shortness of Breath, Wheezing, Cough, Sputum Cardiovascular: Reports: Palpitations. Denies: Chest Pain, Dyspnea on Exertion , Edema, Lightheadedness Gastrointestinal: Denies: Abdominal Pain, Constipation, Diarrhea Genitourinary: Reports: No Symptoms Musculoskeletal: Reports: Back Pain Skin: Reports: Rash. Denies: Pruritis Psychiatric: Reports: No Symptoms Neurological: Reports: No Symptoms. Denies: Confusion Exam - Exam Exam: See Below - Vital Signs Vital Signs: Last Vital Signs Temp 97.8 F 03/07/20 18:20 Pulse 125 H 03/07/20 18:20 Resp 22 H 03/07/20 18:20 BP 143/89 H 03/07/20 18:20 Pulse Ox 96 03/07/20 18:20 Weight: 93.485 kg - Exam Quality Assessment: Supplemental Oxygen General: Alert, Oriented, Cooperative HEENT: Conjunctiva Clear, EOMI Neck: Supple, Trachea Midline Lungs: Other (diffuse inspriartory/expiratory wheeze; not prolonged) Cardiovascular: Regular Rhythm, Tachycardia GI/Abdominal Exam: Soft, Non-Tender (Male) Exam: Deferred Rectal (Males) Exam: Deferred Back Exam: Other (kyphosis; low back chronic tenderness/paraspinal ) Extremities: Normal Range of Motion, Non-Tender, No Pedal Edema Skin: Warm Neurological: Cranial Nerves Intact Neuro Extensive - Mental Status: Alert, Oriented x3 - Patient Data Lab Results Last 24 hrs: Laboratory Results - last 24 hr 03/07/20 03/07/20 03/07/20 Range/Units 13:00 13:00 13:00 WBC 11.75 H (4.0-11.0) K/uL RBC 5.87 (4.50-5.90) M/uL Hgb 16.6 (13.0-17.0) g/dL Hct 52.0 H (38.0-50.0) % MCV 88.6 (80.0-98.0) fL MCH 28.3 (27.0-32.0) pg MCHC 31.9 (31.0-37.0) g/dL RDW Std Deviation 47.3 (28.0-62.0) fl RDW Coeff of Rober 15 (11.0-15.0) % Plt Count 198 (150-400) K/uL MPV 10.70 (7.40-12.00) fL Neut % (Auto) 56.1 (48.0-80.0) % Lymph % (Auto) 28.4 (16.0-40.0) % [place] % (Auto) 6.7 (0.0-15.0) % Eos % (Auto) 8.4 H (0.0-7.0) % Baso % (Auto) 0.4 (0.0-1.5) % Neut # (Auto) 6.6 H (1.4-5.7) K/uL Lymph # (Auto) 3.3 H (0.6-2.4) K/uL [place] # (Auto) 0.8 (0.0-0.8) K/uL Eos # (Auto) 1.0 H (0.0-0.7) K/uL Baso # (Auto) 0.1 (0.0-0.1) K/uL Nucleated RBC % 0.0 /100WBC Nucleated RBCs # 0 K/uL D-Dimer, Quantitative (0.0-0.50) mg/L FEU VBG pH 7.39 (7.31-7.41) VBG pCO2 39 (35-45) mmHG VBG pO2 40 (30-40) mmHG VBG HCO3 24 (22-30) mEq/L VBG Total CO2 20 L (41-51) mmol/L VBG Base Excess -1.2 (-3.0-3.0) Sodium 140 (136-148) mmol/L Potassium 3.7 (3.5-5.1) mmol/L Chloride 103 (98-107) mmol/L Carbon Dioxide 23.9 (21.0-32.0) mmol/L BUN 9 (7.0-18.0) mg/dL Creatinine 0.7 L (0.8-1.3) mg/dL Est Cr Clr Drug Dosing 125.24 mL/min Estimated GFR (MDRD) > 60.0 ml/min Glucose 139 H (74-106) mg/dL Calcium 8.0 L (8.5-10.1) mg/dL Troponin I < 0.050 (0.000-0.056) ng/mL 03/07/20 Range/Units 13:00 WBC (4.0-11.0) K/uL RBC (4.50-5.90) M/uL Hgb (13.0-17.0) g/dL Hct (38.0-50.0) % MCV (80.0-98.0) fL MCH (27.0-32.0) pg MCHC (31.0-37.0) g/dL RDW Std Deviation (28.0-62.0) fl RDW Coeff of Rober (11.0-15.0) % Plt Count (150-400) K/uL MPV (7.40-12.00) fL Neut % (Auto) (48.0-80.0) % Lymph % (Auto) (16.0-40.0) % [place] % (Auto) (0.0-15.0) % Eos % (Auto) (0.0-7.0) % Baso % (Auto) (0.0-1.5) % Neut # (Auto) (1.4-5.7) K/uL Lymph # (Auto) (0.6-2.4) K/uL [place] # (Auto) (0.0-0.8) K/uL Eos # (Auto) (0.0-0.7) K/uL Baso # (Auto) (0.0-0.1) K/uL Nucleated RBC % /100WBC Nucleated RBCs # K/uL D-Dimer, Quantitative 1.06 H (0.0-0.50) mg/L FEU VBG pH (7.31-7.41) VBG pCO2 (35-45) mmHG VBG pO2 (30-40) mmHG VBG HCO3 (22-30) mEq/L VBG Total CO2 (41-51) mmol/L VBG Base Excess (-3.0-3.0) Sodium (136-148) mmol/L Potassium (3.5-5.1) mmol/L Chloride (98-107) mmol/L Carbon Dioxide (21.0-32.0) mmol/L BUN (7.0-18.0) mg/dL Creatinine (0.8-1.3) mg/dL Est Cr Clr Drug Dosing mL/min Estimated GFR (MDRD) ml/min Glucose (74-106) mg/dL Calcium (8.5-10.1) mg/dL Troponin I (0.000-0.056) ng/mL Result Diagrams: 03/07/20 13:00 03/07/20 13:00 Sepsis Event Note - Evaluation Sepsis Screening Result: No Definite Risk - Focused Exam Vital Signs: Vital Signs Temp Pulse Resp BP Pulse Ox 03/07/20 18:20 97.8 F 125 H 22 H 143/89 H 96 03/07/20 17:28 120 H 23 H 129/77 97 03/07/20 16:05 126 H 24 H 123/86 95 03/07/20 14:28 125 H 21 H 149/82 H 95 03/07/20 13:56 126 H 21 H 134/79 94 L 06/06/20 12:55 97.8 F 127 H 23 H 137/79 93 L Date Exam was Performed: 03/07/20 Time Exam was Performed: 19:32 Problem List Initiated/Reviewed/Updated: Yes Orders Last 24hrs: Active Orders 24 hr Category Date Time Status Patient Status [ADT] Stat ADT 03/07/20 17:36 Active RT Post Treatment Assessment [RC] Click to Edit Care 03/07/20 18:32 Ordered RT Pre-Treatment Assessment [RC] Click to Edit Care 03/07/20 18:32 Ordered Telemetry Monitoring [Cardiac Monitoring] [RC] . Care 03/07/20 18:10 Active DIRECTED [employer] Diet [DIET] Diet 03/08/20 Breakfast Ordered Heparin Sodium Med 03/07/20 18:45 Ordered 5,000 units SUBCUT Q12H Ipratropium [Atrovent] Med 03/08/20 00:00 Ordered 0.5 mg NEB Q6HRRT Sodium Chloride 0.9% [Normal Saline] Med 03/07/20 13:00 Active 10 ml IV ASDIRECTED PRN Sodium Chloride 0.9% [Saline Flush] Med 03/07/20 13:00 Active 10 ml FLUSH ASDIRECTED PRN Sodium Chloride 0.9% [Saline Flush] Med 03/07/20 13:00 Active 2.5 ml FLUSH ASDIRECTED PRN predniSONE Med 03/08/20 08:00 Ordered 40 mg PO WITHBREAKFAST Peripheral IV Insertion Adult [OM.PC] Stat Oth 03/07/20 13:00 Ordered Medication Orders Heparin Sodium (Porcine) (Heparin Sodium) 5,000 units SUBCUT Q12H DAMIEN Ipratropium [place] (Atrovent) 0.5 mg NEB Q6HRRT DAMIEN Prednisone (Prednisone) 40 mg PO WITHBREAKFAST DAMIEN Sodium Chloride (Saline Flush) 10 ml FLUSH ASDIRECTED PRN PRN Reason: Keep Vein Open Last Admin: 03/07/20 14:40 Dose: 10 ml Sodium Chloride (Saline Flush) 2.5 ml FLUSH ASDIRECTED PRN PRN Reason: Keep Vein Open Last Admin: 03/07/20 14:40 Dose: 2.5 ml Sodium Chloride (Normal Saline) 10 ml IV ASDIRECTED PRN PRN Reason: IV Use Last Admin: 03/07/20 14:40 Dose: 10 ml Assessment/Plan Comment:: Assessment: 1. Acute Asthma exacerbation 2. Leukocytosis 3 Mildly elevated D-dimer w. negative CT angio 4. Hyperglycemia 5. PMH :schizophrenia, GERD, previous tobacco user, chronic muscle spasm/low back pain 6. Facial rash: Plan: Admit to observation. full code. DVT: heparin q12 hrs . GI prophylaxis: omeprazole daily. Up ad linda. Diet: ADA 1. Asthma exacerbation: received 4 rounds of Duo-nebs in ED ; improvement of respiratory distress; mildly tachycardic now; continue w. Ipratropium q6hrs ; Duo-nebs for breakthrough dyspnea IV solumedrol 20 mg bid daily, Azithromycin 500 mg daily IV Pending sputum cultures. Afebrile Negative ct-angio Hyperglycemia: receiving iv solumedrol; TID accuchecks w. sliding scale IV NS at maintenance: 100 cc /hr Continue to monitor respiratory status. Supplemental O2: maintain sats . 92% NO acute distress. Continue to monitor. 2. PMH: schizophrenia: continue risperidone. Continue home meds except oral hypoglycemics : Janumet. dc. home inhalers. pt. only has been using Albuterol; unsure when taken controller; Advair. 3. Facial Rash: chronic per patient; non-pruritic; continue to monitor. <Megan Coyne - Last Filed: 03/09/20 23:44> H&P History of Present Illness - General Admit Problem/Dx: Admission Diagnosis/Problem Admission Diagnosis/Problem Acute asthma Exam - Vital Signs Vital Signs: Last Vital Signs Temp 37.6 C 03/08/20 11:39 Pulse 110 H 03/08/20 11:39 Resp 16 03/08/20 11:39 BP 118/70 03/08/20 11:39 Pulse Ox 94 L 03/08/20 14:25 - Patient Data Result Diagrams: 03/08/20 06:15 03/08/20 06:15 - Problem List (1) Exacerbation of asthma SNOMED Code(s): 450056309 ICD Code: J45.901 - UNSPECIFIED ASTHMA WITH (ACUTE) EXACERBATION Status: Acute Qualifiers: Asthma severity: mild Asthma persistence: unspecified Qualified Code(s): J45.901 - Unspecified asthma with (acute) exacerbation (2) DM type 2 (diabetes mellitus, type 2) SNOMED Code(s): 53166216 ICD Code: E11.9 - TYPE 2 DIABETES MELLITUS WITHOUT COMPLICATIONS Status: Chronic Qualifiers: Diabetes mellitus terminal computer operator insulin use: without assisted use Diabetes mellitus complication status: with neurologic complications Diabetes mellitus complication detail: with unspecified neuropathy Qualified Code(s): E11.40 - Type 2 diabetes mellitus with diabetic neuropathy, unspecified (3) HTN (hypertension) SNOMED Code(s): 11031286 ICD Code: I10 - ESSENTIAL (PRIMARY) HYPERTENSION Status: Chronic Qualifiers: Hypertension type: essential hypertension Qualified Code(s): I10 - Essential (primary) hypertension Assessment/Plan Comment:: I performed a history and physical exam of the patient and discussed management with resident. I have reviewed the residents note and agree with documented findings and plan unless otherwise specified in my note.
[2020-03-07] MEDS ORDERED: Sodium Chloride 0.9% 1,000 ML IV ONE (19:18)
[2020-03-07] MEDS ORDERED: Albuterol/Ipratropium 3.0-0.5 MG/3 ML Neb Soln NEB PRN (19:19)
[2020-03-07 19:52] LABS: HEMOGLOBIN A1C 6.4 % (4.5-6.2)
[2020-03-07] MEDS ORDERED: Azithromycin 500 MG in Sodium Chloride 0.9% 250 ML IV SCH (20:00)
[2020-03-07] MEDS: Heparin Sodium 5,000 Units/ML Vial SUBCUT SCH (20:48)
[2020-03-07] MEDS ORDERED: Montelukast 10 MG Tab PO SCH (21:00)
[2020-03-07] MEDS ORDERED: atorvaSTATin 20 MG Tab PO SCH (21:00)
[2020-03-07] MEDS ORDERED: risperiDONE 1 MG Tab PO SCH (21:00)
[2020-03-07] MEDS: Pregabalin 50 MG Cap PO SCH (21:07)
[2020-03-07] MEDS: Benztropine 1 MG Tab PO SCH (21:08)
[2020-03-07] MEDS ORDERED: Codeine/guaiFENesin 10-100 MG/5 ML Syrup 5 ML Cup PO PRN (22:08)
[2020-03-07] MEDS ORDERED: Acetaminophen 325 MG Tab PO ONE (22:09)
[2020-03-08] MEDS: Ipratropium 0.02% 0.5 MG/2.5 ML Neb Soln NEB SCH ×3 (00:35→11:43)
[2020-03-08] MEDS: methylPREDNISolone Sodium Succinate 40 MG/1 ML SDV IVPUSH SCH ×2 (00:35→13:17)
[2020-03-08 06:51] LABS: BLOOD UREA NITROGEN,BUN 14 mg/dL (7.0-18.0); CARBON DIOXIDE,CO2 24.2 mmol/L (21.0-32.0); CHLORIDE,CL 107 mmol/L (98-107); GLUCOSE RANDOM 175 mg/dL (74-106); POTASSIUM,K 4.4 mmol/L (3.5-5.1); SODIUM,NA 141 mmol/L (136-148)
[2020-03-08] MEDS: Insulin Aspart 100 Units/ML 3 ML Pen SUBCUT SCH ×2 (07:11→11:36)
[2020-03-08] MEDS ORDERED: Omeprazole 20 MG Cap.CR PO SCH (07:30)
[2020-03-08] MEDS ORDERED: predniSONE 20 MG Tab PO SCH (08:00)
[2020-03-08] MEDS: Heparin Sodium 5,000 Units/ML Vial SUBCUT SCH (08:18)
[2020-03-08] MEDS: Pregabalin 50 MG Cap PO SCH (08:25)
[2020-03-08] MEDS: Benztropine 1 MG Tab PO SCH (08:45)
[2020-03-08] MEDS ORDERED: Lisinopril 10 MG Tab PO SCH (09:00)
[2020-03-08] MEDS ORDERED: amLODIPine 5 MG Tab PO SCH (09:00)
[2020-03-08] MEDS ORDERED: risperiDONE 1 MG Tab PO SCH (09:00)
[2020-03-08 11:41] VITALS: BP 118/70; PULSE 110
--- NOTE | 2020-03-08 14:49 | PCM.DCSUM1 ---
Discharge Summary - Discharge Data Discharge Date: 03/08/20 Discharge Disposition: Home, Self-Care 01 Condition: Stable - Referral to Home Health Primary Care Physician: PCP Unknown - Discharge Diagnosis/Problem(s) (1) Exacerbation of asthma SNOMED Code(s): 726044872 ICD Code: J45.901 - UNSPECIFIED ASTHMA WITH (ACUTE) EXACERBATION Status: Acute Current Visit: Yes Qualifiers: Asthma severity: mild Asthma persistence: unspecified Qualified Code(s): J45.901 - Unspecified asthma with (acute) exacerbation (2) DM type 2 (diabetes mellitus, type 2) SNOMED Code(s): 42556884 ICD Code: E11.9 - TYPE 2 DIABETES MELLITUS WITHOUT COMPLICATIONS Status: Chronic Current Visit: No Qualifiers: Diabetes mellitus [facility] insulin use: without [facility] use Diabetes mellitus complication status: with neurologic complications Diabetes mellitus complication detail: with unspecified neuropathy Qualified Code(s): E11.40 - Type 2 diabetes mellitus with diabetic neuropathy, unspecified (3) HTN (hypertension) SNOMED Code(s): 75482663 ICD Code: I10 - ESSENTIAL (PRIMARY) HYPERTENSION Status: Chronic Current Visit: No Qualifiers: Hypertension type: essential hypertension Qualified Code(s): I10 - Essential (primary) hypertension - Discharge Plan *PRESCRIPTION DRUG MONITORING PROGRAM REVIEWED*: No *COPY OF PRESCRIPTION DRUG MONITORING REPORT IN PATIENT LUCIA: No Prescriptions/Med Rec: Azithromycin 250 mg PO DAILY #4 tablet Codeine/guaiFENesin [Robitussin AC] 5 ml PO Q4H PRN #1 bottle PRN Reason: Cough guaiFENesin/Dextromethorphan [Guaifenesin Dm Syrup] 5 ml PO Q8H PRN #1 bottle PRN Reason: Cough predniSONE [Prednisone] 50 mg PO DAILY 5 Days #5 tablet Home Medications: Home Meds Fluticasone/Salmeterol [Advair 500-50] 1 puff INH BID 12/30/14 [History] Lisinopril 10 mg PO DAILY 12/30/14 [History] Testosterone Cypionate 200 mg IM Q14D 12/30/14 [History] amLODIPine [Norvasc] 10 mg PO QAM 12/30/14 [History] atorvaSTATin [Lipitor] 20 mg PO BEDTIME 12/30/14 [History] Montelukast [Singulair] 10 mg PO BEDTIME 10/07/15 [History] Calcium Carbonate/Vitamin D3 [Calcium 500 + Vit D 400] 2 each PO DAILY 06/16/16 [History] Cholecalciferol (Vitamin D3) [D3-2000] 2,000 unit PO DAILY 06/16/16 [History] Ipratropium/Albuterol Sulfate [Iprat-Albut 0.5-3(2.5) mg/3 ml] 3 ml IH QID PRN 06/16/16 [History] Omeprazole 40 mg PO ACBREAKFAST 06/16/16 [History] Pregabalin [Lyrica] 50 mg PO BID 06/16/16 [History] risperiDONE 1.5 mg PO QAM 06/16/16 [History] risperiDONE 2 mg PO BEDTIME 06/16/16 [History] sitaGLIPtin Phos/Metformin HCl [Janumet Xr 50-1,000 mg Tablet] 2 tab PO WITHDINNER 06/16/16 [History] Albuterol [Proventil HFA] 1 puff INH ASDIRECTED PRN 06/18/18 [History] Benztropine Mesylate 0.25 mg PO BID 06/18/18 [History] traZODone HCl [Trazodone HCl] 100 mg PO BEDTIME 06/18/18 [History] Azithromycin 250 mg PO DAILY #4 tablet 03/08/20 [Rx] Codeine/guaiFENesin [Robitussin AC] 5 ml PO Q4H PRN #1 bottle 03/08/20 [Rx] Metoprolol Succinate 50 mg PO BEDTIME 03/08/20 [History] guaiFENesin/Dextromethorphan [Guaifenesin Dm Syrup] 5 ml PO Q8H PRN #1 bottle [Rx] predniSONE [Prednisone] 50 mg PO DAILY 5 Days #5 tablet 03/08/20 [Rx] Forms: ED Department Discharge Referrals: PCP,Unknown [Primary Care Provider] - - Patient Data Vitals - Most Recent: Last Vital Signs Temp 37.6 C 03/08/20 11:39 Pulse 110 H 03/08/20 11:39 Resp 16 03/08/20 11:39 BP 118/70 03/08/20 11:39 Pulse Ox 94 L 03/08/20 14:25 Weight - Most Recent: 93.485 kg I&O - Last 24 hours: Intake & Output 06/06/20 06/07/20 06/07/20 22:59 06:59 14:59 Intake Total 1765 Balance 1765 Lab Results - Last 24 hrs: Laboratory Results - last 24 hr 03/07/20 03/07/20 03/08/20 Range/Units 13:00 13:00 06:15 WBC 7.01 (4.0-11.0) K/uL RBC 5.08 (4.50-5.90) M/uL Hgb 14.2 (13.0-17.0) g/dL Hct 44.9 (38.0-50.0) % MCV 88.4 (80.0-98.0) fL MCH 28.0 (27.0-32.0) pg MCHC 31.6 (31.0-37.0) g/dL RDW Std Deviation 48.3 (28.0-62.0) fl RDW Coeff of Rober 15 (11.0-15.0) % Plt Count 189 (150-400) K/uL MPV 11.10 (7.40-12.00) fL Neut % (Auto) 92.2 H (48.0-80.0) % Lymph % (Auto) 7.0 L (16.0-40.0) % [place] % (Auto) 0.7 (0.0-15.0) % Eos % (Auto) 0.0 (0.0-7.0) % Baso % (Auto) 0.1 (0.0-1.5) % Neut # (Auto) 6.5 H (1.4-5.7) K/uL Lymph # (Auto) 0.5 L (0.6-2.4) K/uL [place] # (Auto) 0.1 (0.0-0.8) K/uL Eos # (Auto) 0.0 (0.0-0.7) K/uL Baso # (Auto) 0.0 (0.0-0.1) K/uL Nucleated RBC % 0.0 /100WBC Nucleated RBCs # 0 K/uL D-Dimer, Quantitative 1.06 H (0.0-0.50) mg/L FEU Sodium (136-148) mmol/L Potassium (3.5-5.1) mmol/L Chloride (98-107) mmol/L Carbon Dioxide (21.0-32.0) mmol/L BUN (7.0-18.0) mg/dL Creatinine (0.8-1.3) mg/dL Est Cr Clr Drug Dosing mL/min Estimated GFR (MDRD) ml/min Glucose (74-106) mg/dL POC Glucose (60-110) mg/dL Hemoglobin A1c 6.4 H (4.5-6.2) % Calcium (8.5-10.1) mg/dL Total Bilirubin (0.2-1.0) mg/dL AST (15-37) IU/L ALT (14-63) IU/L Alkaline Phosphatase (46-116) U/L Total Protein (6.4-8.2) g/dL Albumin (3.4-5.0) g/dL Globulin (2.6-4.0) g/dL Albumin/Globulin Ratio (0.9-1.6) 03/08/20 03/08/20 03/08/20 Range/Units 06:15 06:34 11:33 WBC (4.0-11.0) K/uL RBC (4.50-5.90) M/uL Hgb (13.0-17.0) g/dL Hct (38.0-50.0) % MCV (80.0-98.0) fL MCH (27.0-32.0) pg MCHC (31.0-37.0) g/dL RDW Std Deviation (28.0-62.0) fl RDW Coeff of Rober (11.0-15.0) % Plt Count (150-400) K/uL MPV (7.40-12.00) fL Neut % (Auto) (48.0-80.0) % Lymph % (Auto) (16.0-40.0) % [place] % (Auto) (0.0-15.0) % Eos % (Auto) (0.0-7.0) % Baso % (Auto) (0.0-1.5) % Neut # (Auto) (1.4-5.7) K/uL Lymph # (Auto) (0.6-2.4) K/uL [place] # (Auto) (0.0-0.8) K/uL Eos # (Auto) (0.0-0.7) K/uL Baso # (Auto) (0.0-0.1) K/uL Nucleated RBC % /100WBC Nucleated RBCs # K/uL D-Dimer, Quantitative (0.0-0.50) mg/L FEU Sodium 141 (136-148) mmol/L Potassium 4.4 (3.5-5.1) mmol/L Chloride 107 (98-107) mmol/L Carbon Dioxide 24.2 (21.0-32.0) mmol/L BUN 14 (7.0-18.0) mg/dL Creatinine 0.7 L (0.8-1.3) mg/dL Est Cr Clr Drug Dosing 121.63 mL/min Estimated GFR (MDRD) > 60.0 ml/min Glucose 175 H (74-106) mg/dL POC Glucose 160 H 166 H (60-110) mg/dL Hemoglobin A1c (4.5-6.2) % Calcium 7.4 L (8.5-10.1) mg/dL Total Bilirubin 0.3 (0.2-1.0) mg/dL AST 15 (15-37) IU/L ALT 23 (14-63) IU/L Alkaline Phosphatase 79 (46-116) U/L Total Protein 6.5 (6.4-8.2) g/dL Albumin 3.0 L (3.4-5.0) g/dL Globulin 3.5 (2.6-4.0) g/dL Albumin/Globulin Ratio 0.9 (0.9-1.6) [facility] Results - Last 24 hrs: Microbiology 03/07/20 21:50 Gram Stain - Preliminary Sputum - Expectorated Med Orders - Current: Current Medications Albuterol/Ipratropium (Duoneb 3.0-0.5 Mg/3 Ml) 3 ml NEB Q4HR PRN PRN Reason: Shortness of Breath Amlodipine Besylate (Norvasc) 10 mg PO QAM [facility] Last Admin: 03/08/20 08:20 Dose: 10 mg Atorvastatin Calcium (Lipitor) 20 mg PO BEDTIME [facility] Last Admin: 03/07/20 21:09 Dose: 20 mg Benztropine Mesylate (Cogentin) 0.25 mg PO BID [facility] Last Admin: 03/08/20 08:45 Dose: 0.25 mg Guaifenesin/Codeine Phosphate (Robitussin Ac) 5 ml PO Q4H PRN PRN Reason: Cough Heparin Sodium (Porcine) (Heparin Sodium) 5,000 units SUBCUT Q12H [facility] Last Admin: 03/08/20 08:18 Dose: 5,000 units Azithromycin 500 mg/ Sodium (Chloride) 250 mls @ 250 mls/hr IV Q24H [facility] Last Admin: 03/07/20 20:48 Dose: 250 mls/hr Insulin Aspart (Novolog) 0 unit SUBCUT TIDAC [facility]; Protocol Last Admin: 03/08/20 11:36 Dose: 1 unit Ipratropium [place] (Atrovent) 0.5 mg NEB Q6HRRT [facility] Last Admin: 03/08/20 11:43 Dose: 0.5 mg Lisinopril (Prinivil) 10 mg PO DAILY [facility] Last Admin: 03/08/20 08:20 Dose: 10 mg Methylprednisolone Sodium Succinate (Solu-Medrol) 40 mg IVPUSH Q12H [facility] Last Admin: 03/08/20 13:17 Dose: 40 mg Montelukast Sodium (Singulair) 10 mg PO BEDTIME [facility] Last Admin: 03/07/20 21:08 Dose: 10 mg Omeprazole (Omeprazole) 40 mg PO ACBREAKFAST [facility] Last Admin: 03/08/20 07:05 Dose: 40 mg Pregabalin (Lyrica) 50 mg PO BID [facility] Last Admin: 03/08/20 08:25 Dose: 50 mg Risperidone (Risperidal) 1.5 mg PO QAM [facility] Last Admin: 03/08/20 08:36 Dose: 1.5 mg Risperidone (Risperidal) 2 mg PO BEDTIME [facility] Last Admin: 03/07/20 21:07 Dose: 2 mg Sodium Chloride (Saline Flush) 10 ml FLUSH ASDIRECTED PRN PRN Reason: Keep Vein Open Last Admin: 03/07/20 14:40 Dose: 10 ml Sodium Chloride (Saline Flush) 2.5 ml FLUSH ASDIRECTED PRN PRN Reason: Keep Vein Open Last Admin: 03/07/20 14:40 Dose: 2.5 ml Sodium Chloride (Normal Saline) 10 ml IV ASDIRECTED PRN PRN Reason: IV Use Last Admin: 03/07/20 14:40 Dose: 10 ml Trazodone HCl (Trazodone Hcl) 100 mg PO BEDTIME [facility] Last Admin: 03/07/20 21:12 Dose: Not Given Discontinued Medications Albuterol (Proventil Neb Soln) 5 mg NEB ONETIME ONE Stop: 03/07/20 13:00 Last Admin: 03/07/20 13:18 Dose: 5 mg Albuterol (Proventil Neb Soln) Confirm Administered Dose 5 mg .ROUTE .STK-MED ONE Stop: 03/07/20 13:01 Last Admin: 03/07/20 13:19 Dose: 5 mg Albuterol (Proventil Neb Soln) 5 mg NEB ONETIME ONE Stop: 03/07/20 14:39 Last Admin: 03/07/20 14:47 Dose: 5 mg Albuterol/Ipratropium (Duoneb 3.0-0.5 Mg/3 Ml) 6 ml NEB ONETIME ONE Stop: 03/07/20 13:00 Last Admin: 03/07/20 13:01 Dose: 6 ml Albuterol/Ipratropium (Duoneb 3.0-0.5 Mg/3 Ml) Confirm Administered Dose 6 ml .ROUTE .STK-MED ONE Stop: 03/07/20 13:01 Last Admin: 03/07/20 13:17 Dose: 3 ml Albuterol/Ipratropium (Duoneb 3.0-0.5 Mg/3 Ml) 3 ml NEB ONETIME ONE Stop: 03/07/20 17:13 Last Admin: 03/07/20 17:47 Dose: 3 ml Lactated Ringer's (Ringers, Lactated) 1,000 mls @ 1,000 mls/hr IV .BOLUS ONE Stop: 03/07/20 14:04 Last Admin: 03/07/20 14:05 Dose: 1,000 mls/hr Sodium Chloride (Normal Saline) 1,000 mls @ 100 mls/hr IV STAT ONE Stop: 03/08/20 05:17 Last Admin: 03/07/20 20:48 Dose: 100 mls/hr Iopamidol (Isovue Multipack-370 (76%)) 50 ml IVPUSH ONETIME ONE Stop: 03/07/20 16:54 Last Admin: 03/07/20 16:54 Dose: 50 ml Methylprednisolone Sodium Succinate (Solu-Medrol) 20 mg IVPUSH Q12H [facility] Prednisone (Prednisone) 60 mg PO ONETIME ONE Stop: 03/07/20 13:02 Last Admin: 03/07/20 13:59 Dose: 60 mg Prednisone (Prednisone) Confirm Administered Dose 10 mg .ROUTE .STK-MED ONE Stop: 03/07/20 13:04 Last Admin: 03/07/20 14:00 Dose: Not Given Prednisone (Prednisone) 40 mg PO WITHBREAKFAST [facility]
[2020-03-08] MEDS ORDERED: methylPREDNISolone Sodium Succinate 40 MG/1 ML SDV IVPUSH SCH (19:30)
== END 2020-03-08 13:40 | disposition home or self-care (01) ==
LOC: MW.ED 12:52 → MW.MS 17:36
PROVIDERS: ADMIT Student in an Organized Health Care Education/Training Program; ATTEND Student in an Organized Health Care Education/Training Program
DX: J45.901 Unspecified asthma with (acute) exacerbation (principal); E11.40 Type 2 diabetes mellitus with diabetic neuropathy, unspecified; D72.829 Elevated white blood cell count, unspecified; R79.1 Abnormal coagulation profile; E11.65 Type 2 diabetes mellitus with hyperglycemia; F20.9 Schizophrenia, unspecified; E78.00 Pure hypercholesterolemia, unspecified; I10 Essential (primary) hypertension; E66.9 Obesity, unspecified; R21 Rash and other nonspecific skin eruption; M54.5 Low back pain; M62.830 Muscle spasm of back; Z79.51 Long term (current) use of inhaled steroids; Z79.899 Other long term (current) drug therapy; Z68.27 Body mass index [BMI] 27.0-27.9, adult
CPT/HCPCS: 36415; 71045; 71275; 80048; 80053; 82803; 82962; 83036; 84484; 85025; 85379; 87070; 87205; 93005; 94640; A9270; J0456; J1644; J1815; J2920; J7030; J7050; J7120; Q9967; 87186; 96360; 96361; 96372; 96374; 96375; 96376; 99285; 99291; G0378; J7620-GY

== ENCOUNTER 2020-04-10 12:06 | Emergency (ER) | payer MEDICAID ==
[2020-04-10] MEDS ORDERED: Sodium Chloride 0.9% 10 ML Syringe FLUSH PRN (12:15)
[2020-04-10] MEDS ORDERED: Aspirin 81 MG Tab.Chew PO ONE (12:15)
[2020-04-10] MEDS ORDERED: Sodium Chloride 0.9% 2.5 ML Syringe FLUSH PRN ×2 (12:15)
[2020-04-10] MEDS ORDERED: Dexamethasone 10 MG/ML SDV IVPUSH ONE (12:16)
[2020-04-10] MEDS ORDERED: Albuterol/Ipratropium 3.0-0.5 MG/3 ML Neb Soln NEB ONE (12:16)
--- NOTE | 2020-04-10 12:41 | EDM.PDOC ---
ED HPI GENERAL MEDICAL PROBLEM - General Chief Complaint: Respiratory Problem Stated Complaint: SOB Time Seen by Provider: 04/10/20 12:10 - History of Present Illness INITIAL COMMENTS - FREE TEXT/NARRATIVE: History of present illness: Patient presents with difficulty breathing for 2 days history of asthma denies smoking denies any fever chills or cough or chest pain he has been progressively increasing his shortness of breath of the past several days and came to the ER in moderate respiratory distress. Complaints no other concerns today. No peripheral swelling and upright makes it better exertion makes it worse Review of systems: As per history of present illness and below otherwise all systems reviewed and negative. Past medical history: As per history of present illness and as reviewed below otherwise noncontri butory. Surgical history: As per history of present illness and as reviewed below otherwise noncontributory. Social history: No reported history of drug or alcohol abuse. Family history: As per history of present illness and as reviewed below otherwise noncontributory. Physical exam: HEENT: Atraumatic, normocephalic, pupils reactive, negative for conjunctival pallor or scleral icterus, mucous membranes moist, throat clear, neck supple, nontender, trachea midline. Lungs: Patient is in moderate respiratory distress he is tripoding he is able to speak in 3-5 word sentences. There is increased expiratory phase and scattered wheezing Heart: S1S2, regular, negative for clicks, rubs, or JVD. Abdomen: Soft, nondistended, nontender. Negative for masses or hepatosplenomegaly. Negative for costovertebral tenderness. Pelvis: Stable nontender. Genitourinary: Deferred. Rectal: Deferred. Extremities: Atraumatic, negative for cords or calf pain. Neurovascular unremarkable. Neuro: Awake, alert, oriented. Cranial nerves II through XII unremarkable. Cerebellum unremarkable. Motor and sensory unremarkable throughout. Exam nonfocal. Diagnostics: [] Therapeutics: [] Impression: [] Plan: Steroids nebs labs reassess [] Definitive disposition and diagnosis as appropriate pending reevaluation and review of above. - Related Data Allergies Allergy/AdvReac Type Severity Reaction Status Date / Time hydrocodone Allergy Hives Verified 04/10/20 12:15 ketorolac [From Toradol] Allergy Cannot Verified 04/10/20 12:15 Remember sucralfate [From Carafate] Allergy Hives Verified 04/10/20 12:15 tamsulosin Allergy Other Verified 04/10/20 12:15 theophylline Allergy Cannot Verified 04/10/20 12:15 Remember tramadol Allergy Hives Verified 04/10/20 12:15 Home Meds: Home Meds Fluticasone/Salmeterol [Advair 500-50] 1 puff INH BID 12/30/14 [History] Lisinopril 10 mg PO DAILY 12/30/14 [History] Testosterone Cypionate 200 mg IM Q14D 12/30/14 [History] amLODIPine [Norvasc] 10 mg PO DAILY 12/30/14 [History] atorvaSTATin [Lipitor] 20 mg PO BEDTIME 12/30/14 [History] Montelukast [Singulair] 10 mg PO BEDTIME 10/07/15 [History] Omeprazole 40 mg PO ACBREAKFAST 06/16/16 [History] Pregabalin [Lyrica] 50 mg PO BID 06/16/16 [History] risperiDONE 1.5 mg PO DAILY 06/16/16 [History] risperiDONE 2 mg PO BEDTIME 06/16/16 [History] sitaGLIPtin Phos/Metformin HCl [Janumet Xr 50-1,000 mg Tablet] 2 tab PO WITHDINNER 06/16/16 [History] Benztropine Mesylate 0.25 mg PO BID 06/18/18 [History] traZODone HCl [Trazodone HCl] 100 mg PO BEDTIME 06/18/18 [History] Metoprolol Succinate 50 mg PO BEDTIME 03/08/20 [History] Levalbuterol Tartrate [Xopenex Hfa] 2 puff INH Q6H PRN 04/10/20 [History] predniSONE [Prednisone] 2.5 mg PO DAILY 04/10/20 [History] Past Medical History HEENT History: Reports: Allergic Rhinitis, Cataract, Impaired Vision Other HEENT History: wears glasses, has no teeth- no dentures Cardiovascular History: Reports: High Cholesterol, Hypertension Respiratory History: Reports: Asthma. Denies: COPD Gastrointestinal History: Reports: Colon Polyp, Diverticulosis, GERD, Hiatal Hernia. Denies: Cirrhosis Genitourinary History: Reports: None. 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 Was taking it for ten years Oncologic (Cancer) History: Reports: None Dermatologic History: Reports: Other (See Below) Other Dermatologic History: debridement of right leg abscess - Infectious Disease History Infectious Disease History: Reports: MRSA Other Infectious Disease History: Right leg wound-healed - Past Surgical History HEENT Surgical History: Reports: Cataract Surgery Cardiovascular Surgical History: Reports: None GI Surgical History: Reports: Colonoscopy, EGD Endocrine Surgical History: Reports: None Neurological Surgical History: Reports: None Musculoskeletal Surgical History: Reports: ORIF, Other (See Below) Other Musculoskeletal Surgeries/Procedures:: I&D R calf, ORIF right leg- hardware removed Social & Family History - Family History Family Medical History: Noncontributory - Caffeine Use Caffeine Use: Reports: None - Living Situation & Occupation Living situation: Reports: Single ED ROS GENERAL - Review of Systems Review Of Systems: See Below ED EXAM, GENERAL - Physical Exam Exam: See Below EKG INTERPRETATION EKG Interpretation Comments: EKG is a normal sinus rhythm with a rate of 115 beats a minute sinus tachycardia right axis no ischemic changes read and interpreted by me Course - Vital Signs Text/Narrative:: Patient was rechecked after his DuoNeb and needed another breathing treatment I gave him another 2 mg albuterol and rechecked him again at 3:20 PM he is feeling much better would like to go home. One-view portable chest read and interpreted by me no acute cardiopulmonary pathology is evident. Seemed a dose of Decadron in the ED he has all of his medications at home and be discharged home follow-up with a primary care doctor. Last Recorded V/S: Last Vital Signs Temp 35.6 C L 04/10/20 12:11 Pulse 104 H 04/10/20 14:00 Resp 22 H 04/10/20 14:00 BP 134/89 04/10/20 14:00 Pulse Ox 95 04/10/20 14:00 - Orders/Labs/Meds Orders: Active Orders 24 hr Category Date Time Status EKG Documentation Completion [RC] STAT Care 04/10/20 12:15 Active RT Aerosol Therapy [RC] ASDIRECTED Care 04/10/20 12:16 Active RT Aerosol Therapy [RC] ASDIRECTED Care 04/10/20 14:06 Active Sodium Chloride 0.9% [Saline Flush] Med 04/10/20 12:15 Active 10 ml FLUSH ASDIRECTED PRN Sodium Chloride 0.9% [Saline Flush] Med 04/10/20 12:15 Active 2.5 ml FLUSH ASDIRECTED PRN Sodium Chloride 0.9% [Saline Flush] Med 04/10/20 12:15 Active 2.5 ml FLUSH ASDIRECTED PRN Saline Lock Insert [OM.PC] Stat Oth 04/10/20 12:15 Ordered Medication Orders Sodium Chloride (Saline Flush) 10 ml FLUSH ASDIRECTED PRN PRN Reason: Keep Vein Open Sodium Chloride (Saline Flush) 2.5 ml FLUSH ASDIRECTED PRN PRN Reason: Keep Vein Open Sodium Chloride (Saline Flush) 2.5 ml FLUSH ASDIRECTED PRN PRN Reason: Keep Vein Open Labs: Laboratory Tests 04/10/20 04/10/20 04/10/20 Range/Units 12:21 12:21 12:21 WBC 8.96 (4.0-11.0) K/uL RBC 5.70 (4.50-5.90) M/uL Hgb 15.9 (13.0-17.0) g/dL Hct 49.8 (38.0-50.0) % MCV 87.4 (80.0-98.0) fL MCH 27.9 (27.0-32.0) pg MCHC 31.9 (31.0-37.0) g/dL RDW Std Deviation 50.4 (28.0-62.0) fl RDW Coeff of Rober 16 H (11.0-15.0) % Plt Count 195 (150-400) K/uL MPV 11.00 (7.40-12.00) fL Neut % (Auto) 68.4 (48.0-80.0) % Lymph % (Auto) 17.1 (16.0-40.0) % [place] % (Auto) 8.3 (0.0-15.0) % Eos % (Auto) 5.8 (0.0-7.0) % Baso % (Auto) 0.4 (0.0-1.5) % Neut # (Auto) 6.1 H (1.4-5.7) K/uL Lymph # (Auto) 1.5 (0.6-2.4) K/uL [place] # (Auto) 0.7 (0.0-0.8) K/uL Eos # (Auto) 0.5 (0.0-0.7) K/uL Baso # (Auto) 0.0 (0.0-0.1) K/uL Nucleated RBC % 0.0 /100WBC Nucleated RBCs # 0 K/uL Sodium 139 (136-148) mmol/L Potassium 3.7 (3.5-5.1) mmol/L Chloride 104 (98-107) mmol/L Carbon Dioxide 21.7 (21.0-32.0) mmol/L BUN 15 (7.0-18.0) mg/dL Creatinine 0.7 L (0.8-1.3) mg/dL Est Cr Clr Drug Dosing 125.24 mL/min Estimated GFR (MDRD) > 60.0 ml/min Glucose 173 H (74-106) mg/dL Calcium 9.3 (8.5-10.1) mg/dL Total Bilirubin 0.3 (0.2-1.0) mg/dL AST 29 (15-37) IU/L ALT 39 (14-63) IU/L Alkaline Phosphatase 91 (46-116) U/L Troponin I < 0.050 (0.000-0.056) ng/mL B-Natriuretic Peptide 9 (<100) PG/ML Total Protein 7.8 (6.4-8.2) g/dL Albumin 3.8 (3.4-5.0) g/dL Globulin 4.0 (2.6-4.0) g/dL Albumin/Globulin Ratio 0.9 (0.9-1.6) Meds: Medications Generic Name Dose Route Start Last Admin Trade Name Freq PRN Reason Stop Dose Admin Sodium Chloride 10 ml 04/10/20 12:15 Saline Flush FLUSH ASDIRECTED PRN Keep Vein Open Sodium Chloride 2.5 ml 04/10/20 12:15 Saline Flush FLUSH ASDIRECTED PRN Keep Vein Open Sodium Chloride 2.5 ml 04/10/20 12:15 Saline Flush FLUSH ASDIRECTED PRN Keep Vein Open Discontinued Medications Generic Name Dose Route Start Last Admin Trade Name Ericka PRN Reason Stop Dose Admin Albuterol 2.5 mg 04/10/20 14:06 04/10/20 14:25 Proventil Neb Soln NEB 04/10/20 14:07 2.5 mg ONETIME ONE Administration Albuterol/Ipratropium 3 ml 04/10/20 12:16 04/10/20 12:35 Duoneb 3.0-0.5 Mg/3 Ml NEB 04/10/20 12:17 3 ml ONETIME ONE Administration Aspirin 324 mg 04/10/20 12:15 04/10/20 12:31 Aspirin PO 04/10/20 12:16 324 mg ONETIME ONE Administration Dexamethasone 10 mg 04/10/20 12:16 04/10/20 12:32 Dexamethasone IVPUSH 04/10/20 12:17 10 mg ONETIME ONE Administration Departure - Departure Time of Disposition: 15:25 Disposition: DC/Tfer to [facility]04 Condition: Good Clinical Impression: Asthma exacerbation Qualifiers: Asthma severity: mild Asthma persistence: unspecified Qualified Code(s): J45.901 - Unspecified asthma with (acute) exacerbation - Discharge Information *PRESCRIPTION DRUG MONITORING PROGRAM REVIEWED*: Not Applicable *COPY OF PRESCRIPTION DRUG MONITORING REPORT IN PATIENT LUCIA: Not Applicable Instructions: Asthma, Adult Referrals: PCP,None [Primary Care Provider] - Forms: ED Department Discharge Additional Instructions: The following information is given to patients seen in the emergency department who are being discharged to home. This information is to outline your options for follow-up care. We provide all patients seen in our emergency department with a follow-up referral. The need for follow-up, as well as the timing and circumstances, are variable depending upon the specifics of your emergency department visit. If you don't have a primary care physician on staff, we will provide you with a referral. We always advise you to contact your personal physician following an emergency department visit to inform them of the circumstance of the visit and for follow-up with them and/or the need for any referrals to a consulting specialist. The emergency department will also refer you to a specialist when appropriate. This referral assures that you have the opportunity for follow-up care with a specialist. All of these measure are taken in an effort to provide you with optimal care, which includes your follow-up. Under all circumstances we always encourage you to contact your private physician who remains a resource for coordinating your care. When calling for follow-up care, please make the office aware that this follow-up is from your recent emergency room visit. If for any reason you are refused follow-up, please contact the [facility] Emergency Department at and asked to speak to the emergency department charge nurse. Sepsis Event Note (ED) - Evaluation Sepsis Screening Result: No Definite Risk - Focused Exam Vital Signs: Vital Signs Temp Pulse Resp BP Pulse Ox 04/10/20 14:00 104 H 22 H 134/89 95 04/10/20 13:00 112 H 24 H 130/80 95 04/10/20 12:11 35.6 C L 126 H 25 H 144/88 H 90 L - My Orders Last 24 Hours: My Active Orders 04/10/20 12:15 EKG Documentation Completion [RC] STAT Sodium Chloride 0.9% [Saline Flush] 10 ml FLUSH ASDIRECTED PRN Sodium Chloride 0.9% [Saline Flush] 2.5 ml FLUSH ASDIRECTED PRN Sodium Chloride 0.9% [Saline Flush] 2.5 ml FLUSH ASDIRECTED PRN Saline Lock Insert [OM.PC] Stat 04/10/20 12:16 RT Aerosol Therapy [RC] ASDIRECTED 04/10/20 14:06 RT Aerosol Therapy [RC] ASDIRECTED - Assessment/Plan Last 24 Hours: My Active Orders 04/10/20 12:15 EKG Documentation Completion [RC] STAT Sodium Chloride 0.9% [Saline Flush] 10 ml FLUSH ASDIRECTED PRN Sodium Chloride 0.9% [Saline Flush] 2.5 ml FLUSH ASDIRECTED PRN Sodium Chloride 0.9% [Saline Flush] 2.5 ml FLUSH ASDIRECTED PRN Saline Lock Insert [OM.PC] Stat 04/10/20 12:16 RT Aerosol Therapy [RC] ASDIRECTED 04/10/20 14:06 RT Aerosol Therapy [RC] ASDIRECTED
[2020-04-10 13:01] LABS: BLOOD UREA NITROGEN,BUN 15 mg/dL (7.0-18.0); CARBON DIOXIDE,CO2 21.7 mmol/L (21.0-32.0); CHLORIDE,CL 104 mmol/L (98-107); GLUCOSE RANDOM 173 mg/dL (74-106); POTASSIUM,K 3.7 mmol/L (3.5-5.1); SODIUM,NA 139 mmol/L (136-148)
--- NOTE | 2020-04-10 13:34 | CR ---
Chest: AP view of the chest was obtained. Comparison: Prior chest x-ray of 03/07/20. Heart size and mediastinum are normal. Lung markings are mildly increased which appear chronic. No acute parenchymal change is appreciated. Bony structures are grossly intact. Impression: 1. Nothing acute is seen on portable chest x-ray. Diagnostic code #2 This report was dictated in MDT
[2020-04-10] MEDS ORDERED: Albuterol 0.083% 2.5 MG/3 ML Neb Soln NEB ONE (14:06)
[2020-04-10 14:43] VITALS: BP 134/89
[2020-04-10 15:40] VITALS: PULSE 87
== END 2020-04-10 15:40 | disposition home or self-care (01) ==
LOC: MW.ED 12:06
DX: J45.901 Unspecified asthma with (acute) exacerbation (principal); E78.00 Pure hypercholesterolemia, unspecified; I10 Essential (primary) hypertension; E66.9 Obesity, unspecified; Z68.27 Body mass index [BMI] 27.0-27.9, adult; K21.9 Gastro-esophageal reflux disease without esophagitis; Z79.84 Long term (current) use of oral hypoglycemic drugs; Z79.899 Other long term (current) drug therapy; Z88.5 Allergy status to narcotic agent; Z88.6 Allergy status to analgesic agent; Z88.8 Allergy status to other drugs, medicaments and biological substances; E11.40 Type 2 diabetes mellitus with diabetic neuropathy, unspecified
CPT/HCPCS: 36415; 71045; 80053; 83880; 84484; 85025; 93005; 94640; 99285; A9270; J1100; J7620-GY

== ENCOUNTER 2020-04-30 13:45 | Observation (INO) | payer MEDICAID ==
[2020-04-30] MEDS ORDERED: Sodium Chloride 0.9% 2.5 ML Syringe FLUSH PRN (13:52)
[2020-04-30] MEDS ORDERED: Sodium Chloride 0.9% 10 ML Syringe FLUSH PRN (13:52)
--- NOTE | 2020-04-30 13:53 | EDM.PDOC ---
ED HPI GENERAL MEDICAL PROBLEM - General Chief Complaint: Respiratory Problem Stated Complaint: ASTHMA Time Seen by Provider: 04/30/20 13:51 Source of Information: Reports: Patient, Old Records History Limitations: Reports: No Limitations - History of Present Illness INITIAL COMMENTS - FREE TEXT/NARRATIVE: 60-year-old male with past medical history of severe asthma, schizophrenia, hypertension, type 2 diabetes mellitus, COPD presenting with shortness of breath. Numerous presentations to the emergency department in the past for asthma exacerbations. Reports 2 to 3 weeks of intermittent coughing, wheezing, and feeling like his asthma symptoms are not well controlled. Shortness of breath worsened this afternoon which prompted him to come to the ED. Used his home albuterol nebulizer twice with partial relief before coming to the ER. Denies any recent fever, chills, nausea, vomiting, diarrhea, chest discomfort, hemoptysis, leg swelling. ROS: A 10-point review of systems was negative, except as noted in the HPI (or in the ROS section of this note). Past medical history: Reviewed, no additional pertinent history. Surgical history: Reviewed in system, no additional pertinent history. Social history: Reviewed in system, no additional pertinent history. Family history: Reviewed in system, no additional pertinent history. PHYSICAL EXAM Vital signs reviewed. Nursing notes reviewed. Constitutional: Awake, alert, non-distressed. Head: Normocephalic, atraumatic. Eyes: EOMI, conjunctiva normal, no discharge, no scleral icterus. Ears, Nose, Throat: External ears and nose normal, moist oral mucosa. Cardiovascular: Tachycardic, 2+ radial pulse, capillary refill less than 2 seconds. Pulmonary: Diffuse wheezing, mildly increased work of breathing, no accessory muscle use. Speaking in full sentences. Abdomen/GI: nontender Musculoskeletal: No deformities. Integumentary: Appropriate color for ethnicity, warm, dry, no pallor or jaundice, no rash. Neurologic: Alert, answering questions appropriately, normal speech, no facial droop, moving all extremities well. Psychiatric: Appropriate mood and affect, normal thought process. - Related Data Allergies Allergy/AdvReac Type Severity Reaction Status Date / Time hydrocodone Allergy Hives Verified 04/10/20 12:15 ketorolac [From Toradol] Allergy Cannot Verified 04/10/20 12:15 Remember sucralfate [From Carafate] Allergy Hives Verified 04/10/20 12:15 tamsulosin Allergy Other Verified 04/10/20 12:15 theophylline Allergy Cannot Verified 04/10/20 12:15 Remember tramadol Allergy Hives Verified 04/10/20 12:15 Home Meds: Home Meds Fluticasone/Salmeterol [Advair 500-50] 1 puff INH BID 12/30/14 [History] Lisinopril 10 mg PO DAILY 12/30/14 [History] Testosterone Cypionate 200 mg IM Q14D 12/30/14 [History] amLODIPine [Norvasc] 10 mg PO DAILY 12/30/14 [History] atorvaSTATin [Lipitor] 20 mg PO BEDTIME 12/30/14 [History] Montelukast [Singulair] 10 mg PO BEDTIME 10/07/15 [History] Omeprazole 40 mg PO ACBREAKFAST 06/16/16 [History] Pregabalin [Lyrica] 50 mg PO BID 06/16/16 [History] risperiDONE 1.5 mg PO DAILY 06/16/16 [History] risperiDONE 2 mg PO BEDTIME 06/16/16 [History] sitaGLIPtin Phos/Metformin HCl [Janumet Xr 50-1,000 mg Tablet] 2 tab PO WITHDINNER 06/16/16 [History] Benztropine Mesylate 0.25 mg PO BID 06/18/18 [History] traZODone HCl [Trazodone HCl] 100 mg PO BEDTIME 06/18/18 [History] Metoprolol Succinate 50 mg PO BEDTIME 03/08/20 [History] Levalbuterol Tartrate [Xopenex Hfa] 2 puff INH Q6H PRN 04/10/20 [History] predniSONE [Prednisone] 2.5 mg PO DAILY 04/10/20 [History] Past Medical History HEENT History: Reports: Allergic Rhinitis, Cataract, Impaired Vision Other HEENT History: wears glasses, has no teeth- no dentures Cardiovascular History: Reports: High Cholesterol, Hypertension Respiratory History: Reports: Asthma. Denies: COPD Gastrointestinal History: Reports: Colon Polyp, Diverticulosis, GERD, Hiatal Hernia. Denies: Cirrhosis Genitourinary History: Reports: None. 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 Was taking it for ten years Oncologic (Cancer) History: Reports: None Dermatologic History: Reports: Other (See Below) Other Dermatologic History: debridement of right leg abscess - Infectious Disease History Infectious Disease History: Reports: MRSA Other Infectious Disease History: Right leg wound-healed - Past Surgical History HEENT Surgical History: Reports: Cataract Surgery Cardiovascular Surgical History: Reports: None GI Surgical History: Reports: Colonoscopy, EGD Endocrine Surgical History: Reports: None Neurological Surgical History: Reports: None Musculoskeletal Surgical History: Reports: ORIF, Other (See Below) Other Musculoskeletal Surgeries/Procedures:: I&D R calf, ORIF right leg- hardware removed Social & Family History - Family History Family Medical History: Noncontributory - Caffeine Use Caffeine Use: Reports: None - Living Situation & Occupation Living situation: Reports: Single ED ROS GENERAL - Review of Systems Review Of Systems: See Below ED EXAM, GENERAL - Physical Exam Exam: See Below EKG INTERPRETATION EKG Interpretation Comments: 12-Lead ECG Interpretation Acquired: 2:21 PM Rhythm: Sinus tachycardia Rate: 111 bpm [place]: Normal Intervals: Normal Ectopy: None Ischemic Changes: None apparent RV Strain: No obvious RV strain pattern. ST Segments/T-Waves: T wave inversions in aVL Course - Vital Signs Text/Narrative:: Differential diagnosis includes but is not limited to: Asthma, COPD, pneumonia, pneumothorax, congestive heart failure, viral respiratory illness, pleural effusion, arrhythmia, anemia, acute coronary syndrome, etc. Labs drawn, largely reassuring. Showed hyperglycemia with known diabetes. Negative troponin. Chest x-rays are clear. Loudly wheezing on examination. Given 2 DuoNeb's and 2 albuterol treatments. P.o. prednisone, lactated Ringer's bolus, IV magnesium sulfate. No chest discomfort, negative troponin, nonischemic EKG. Low suspicion for pulmonary embolism given wheezing, prolonged expiratory phase, and similar presentations with asthma exacerbations. No leg swelling. No fever, pulmonary infiltrate, hemoptysis, or systemic infectious symptoms. Presentation seems consistent with known prior asthma exacerbations. Breathing somewhat improved but not back to baseline. After 4 nebulizer treatments, persistently hypoxic and tachycardic. Ordered an additional hour-long nebulizer series. Patient will need to be admitted observation status for ongoing hypoxia, tachycardia, and dyspnea. I spoke with the hospitalist Dr. Cross who agrees to admit to observation. Last Recorded V/S: Last Vital Signs Temp 36.6 C 04/30/20 13:58 Pulse 102 H 04/30/20 15:54 Resp 24 H 04/30/20 15:54 BP 113/79 04/30/20 15:54 Pulse Ox 94 L 04/30/20 15:54 - Orders/Labs/Meds Orders: Active Orders 24 hr Category Date Time Status Patient Status [ADT] Routine ADT 04/30/20 15:55 Active Cardiac Monitoring [RC] . DIRECTED Care 04/30/20 13:52 Active Pulse Oximetry [RC] ASDIRECTED Care 04/30/20 13:52 Active RT Aerosol Therapy [RC] ASDIRECTED Care 04/30/20 14:06 Active RT Aerosol Therapy [RC] ASDIRECTED Care 04/30/20 15:51 Active Sodium Chloride 0.9% [Saline Flush] Med 04/30/20 13:52 Active 10 ml FLUSH ASDIRECTED PRN Sodium Chloride 0.9% [Saline Flush] Med 04/30/20 13:52 Active 2.5 ml FLUSH ASDIRECTED PRN Saline Lock Insert [OM.PC] Stat Oth 04/30/20 13:53 Ordered Medication Orders Sodium Chloride (Saline Flush) 10 ml FLUSH ASDIRECTED PRN PRN Reason: Keep Vein Open Last Admin: 04/30/20 14:27 Dose: 10 ml Documented by: CACHORRO Sodium Chloride (Saline Flush) 2.5 ml FLUSH ASDIRECTED PRN PRN Reason: Keep Vein Open Last Admin: 04/30/20 14:27 Dose: 2.5 ml Documented by: CACHORRO Labs: Laboratory Tests 04/30/20 04/30/20 04/30/20 Range/Units 14:10 14:10 14:10 WBC 8.09 (4.0-11.0) K/uL RBC 5.56 (4.50-5.90) M/uL Hgb 15.4 (13.0-17.0) g/dL Hct 48.0 (38.0-50.0) % MCV 86.3 (80.0-98.0) fL MCH 27.7 (27.0-32.0) pg MCHC 32.1 (31.0-37.0) g/dL RDW Std Deviation 51.0 (28.0-62.0) fl RDW Coeff of Rober 16 H (11.0-15.0) % Plt Count 205 (150-400) K/uL MPV 10.30 (7.40-12.00) fL Neut % (Auto) 70.0 (48.0-80.0) % Lymph % (Auto) 11.6 L (16.0-40.0) % Motley % (Auto) 11.1 (0.0-15.0) % Eos % (Auto) 6.8 (0.0-7.0) % Baso % (Auto) 0.5 (0.0-1.5) % Neut # (Auto) 5.7 (1.4-5.7) K/uL Lymph # (Auto) 0.9 (0.6-2.4) K/uL Motley # (Auto) 0.9 H (0.0-0.8) K/uL Eos # (Auto) 0.6 (0.0-0.7) K/uL Baso # (Auto) 0.0 (0.0-0.1) K/uL Nucleated RBC % 0.0 /100WBC Nucleated RBCs # 0 K/uL VBG pH 7.43 H (7.31-7.41) VBG pCO2 35 (35-45) mmHG VBG pO2 55 H (30-40) mmHG VBG HCO3 23 (22-30) mEq/L VBG Total CO2 20 L (41-51) mmol/L VBG Base Excess -0.9 (-3.0-3.0) Sodium 137 (136-148) mmol/L Potassium 4.3 (3.5-5.1) mmol/L Chloride 102 (98-107) mmol/L Carbon Dioxide 22.2 (21.0-32.0) mmol/L BUN 10 (7.0-18.0) mg/dL Creatinine 0.9 (0.8-1.3) mg/dL Est Cr Clr Drug Dosing 94.60 mL/min Estimated GFR (MDRD) > 60.0 ml/min Glucose 200 H (74-106) mg/dL Calcium 8.8 (8.5-10.1) mg/dL Total Bilirubin 0.5 (0.2-1.0) mg/dL AST 37 (15-37) IU/L ALT 38 (14-63) IU/L Alkaline Phosphatase 84 (46-116) U/L Troponin I < 0.050 (0.000-0.056) ng/mL Total Protein 7.3 (6.4-8.2) g/dL Albumin 3.5 (3.4-5.0) g/dL Globulin 3.8 (2.6-4.0) g/dL Albumin/Globulin Ratio 0.9 (0.9-1.6) Meds: Medications Generic Name Dose Route Start Last Admin Trade Name Freq PRN Reason Stop Dose Admin Sodium Chloride 10 ml 04/30/20 13:52 04/30/20 14:27 Saline Flush FLUSH 10 ml ASDIRECTED PRN Administration Keep Vein Open Sodium Chloride 2.5 ml 04/30/20 13:52 04/30/20 14:27 Saline Flush FLUSH 2.5 ml ASDIRECTED PRN Administration Keep Vein Open Discontinued Medications Generic Name Dose Route Start Last Admin Trade Name Freq PRN Reason Stop Dose Admin Albuterol 5 mg 04/30/20 14:06 04/30/20 14:17 Proventil Neb Soln NEB 04/30/20 14:07 5 mg ONETIME ONE Administration Albuterol 10 mg 04/30/20 15:50 Proventil Neb Soln NEB 04/30/20 15:51 ONETIME ONE Albuterol/Ipratropium 6 ml 04/30/20 14:06 04/30/20 14:21 Duoneb 3.0-0.5 Mg/3 Ml NEB 04/30/20 14:07 6 ml ONETIME ONE Administration Albuterol/Ipratropium Confirm 04/30/20 14:20 04/30/20 14:27 Duoneb 3.0-0.5 Mg/3 Ml Administered 04/30/20 14:21 Not Given Dose 3 ml .ROUTE .STK-MED ONE Magnesium Sulfate 2 gm/ Premix 50 mls @ 50 mls/hr 04/30/20 14:07 04/30/20 14:26 IV 04/30/20 15:06 50 mls/hr ONETIME ONE Administration Prednisone 60 mg 04/30/20 14:07 04/30/20 14:26 Prednisone PO 04/30/20 14:08 60 mg ONETIME ONE Administration Departure - Departure Time of Disposition: 15:57 Disposition: Refer to Observation Condition: Good Clinical Impression: Asthma exacerbation Qualifiers: Asthma severity: mild Asthma persistence: unspecified Qualified Code(s): J45.901 - Unspecified asthma with (acute) exacerbation - Discharge Information Referrals: Moe Clayton MD [Primary Care Provider] - Forms: ED Department Discharge Sepsis Event Note (ED) - Focused Exam Vital Signs: Vital Signs Temp Pulse Resp BP Pulse Ox 04/30/20 15:54 102 H 24 H 113/79 94 L 04/30/20 14:05 92 L 04/30/20 13:58 36.6 C 120 H 24 H 112/76 89 L - My Orders Last 24 Hours: My Active Orders 04/30/20 13:52 Cardiac Monitoring [RC] . DIRECTED Pulse Oximetry [RC] ASDIRECTED Sodium Chloride 0.9% [Saline Flush] 10 ml FLUSH ASDIRECTED PRN Sodium Chloride 0.9% [Saline Flush] 2.5 ml FLUSH ASDIRECTED PRN 04/30/20 13:53 Saline Lock Insert [OM.PC] Stat 04/30/20 14:06 RT Aerosol Therapy [RC] ASDIRECTED 04/30/20 15:51 RT Aerosol Therapy [RC] ASDIRECTED 04/30/20 15:55 Patient Status [ADT] Routine - Assessment/Plan Last 24 Hours: My Active Orders 04/30/20 13:52 Cardiac Monitoring [RC] . DIRECTED Pulse Oximetry [RC] ASDIRECTED Sodium Chloride 0.9% [Saline Flush] 10 ml FLUSH ASDIRECTED PRN Sodium Chloride 0.9% [Saline Flush] 2.5 ml FLUSH ASDIRECTED PRN 04/30/20 13:53 Saline Lock Insert [OM.PC] Stat 04/30/20 14:06 RT Aerosol Therapy [RC] ASDIRECTED 04/30/20 15:51 RT Aerosol Therapy [RC] ASDIRECTED 04/30/20 15:55 Patient Status [ADT] Routine
[2020-04-30] MEDS ORDERED: Albuterol 0.083% 2.5 MG/3 ML Neb Soln NEB ONE (14:06)
[2020-04-30] MEDS ORDERED: Albuterol/Ipratropium 3.0-0.5 MG/3 ML Neb Soln NEB ONE (14:06)
[2020-04-30] MEDS ORDERED: Magnesium Sulfate/Water 2 GM in Premix Bag 1 BAG IV ONE (14:07)
[2020-04-30] MEDS ORDERED: predniSONE 20 MG Tab PO ONE (14:07)
[2020-04-30] MEDS ORDERED: Albuterol/Ipratropium 3.0-0.5 MG/3 ML Neb Soln ONE (14:20)
[2020-04-30 14:52] LABS: BLOOD UREA NITROGEN,BUN 10 mg/dL (7.0-18.0); CARBON DIOXIDE,CO2 22.2 mmol/L (21.0-32.0); CHLORIDE,CL 102 mmol/L (98-107); GLUCOSE RANDOM 200 mg/dL (74-106); POTASSIUM,K 4.3 mmol/L (3.5-5.1); SODIUM,NA 137 mmol/L (136-148)
--- NOTE | 2020-04-30 15:14 | CR ---
Chest: Portable view of the chest was obtained. Comparison: Prior chest x-ray of 04/10/20. Heart size and mediastinum are normal. Lung markings are minimally increased which appears stable. No acute parenchymal process is seen. Increased density within the right lung base compatible with previous rib fractures. No acute bony abnormality is appreciated. Impression: 1. Findings as noted above. 2. Nothing acute is seen. Diagnostic code #2 This report was dictated in MDT
[2020-04-30] MEDS ORDERED: Albuterol 0.5% 5 MG/ML Neb Soln 20 ML Bottle NEB ONE (15:50)
[2020-04-30] MEDS ORDERED: Acetaminophen 325 MG Tab PO PRN (18:21)
[2020-04-30] MEDS ORDERED: Ondansetron 4 MG Tab.DIS PO PRN (18:21)
[2020-04-30] MEDS ORDERED: Ondansetron 4 MG/2 ML SDV IVPUSH PRN (18:21)
--- NOTE | 2020-04-30 18:30 | PCM.HP.2 ---
H&P History of Present Illness - General Date of Service: 04/30/20 Admit Problem/Dx: Admission Diagnosis/Problem Admission Diagnosis/Problem Asthma in adult Source of Information: Patient History Limitations: Reports: No Limitations - History of Present Illness Initial Comments - Free Text/Narative: 60-year-old male presents with SOB, cough and wheezing for past 2-3 weeks. He has a PMH of asthma, HTN, schizophrenia and DM type 2. He notes his breathing got worse this morning. Patient reports using his albuterol nebulizer breathing treatments 4 times this morning but was unable to get his breathing under control so came to the ER. He reports using advair daily and regularly uses up to 4 albuterol nebulizer treatments daily. He also has an albuterol rescue inhaler that he will use on occasion. He denies having any fevers, sore throat, cough, blurry vision, chest pain, abdominal pain, n/v/d, blood in stool, blood in urine, numbness or tingling in extremities. In the ER patient given DuoNebs x 2, albuterol nebs x 2, IV mag sulfate and prednisone 60 mg x1. CXR was negative, troponin was negative and COVID19 test was negative. Patient admitted for further evaluation and treatment. - Related Data Allergies/Adverse Reactions: Allergies Allergy/AdvReac Type Severity Reaction Status Date / Time hydrocodone Allergy Hives Verified 04/30/20 18:20 ketorolac [From Toradol] Allergy Cannot Verified 04/30/20 18:20 Remember sucralfate [From Carafate] Allergy Hives Verified 04/30/20 18:20 tamsulosin Allergy Other Verified 04/30/20 18:20 theophylline Allergy Cannot Verified 04/30/20 18:20 Remember tramadol Allergy Hives Verified 04/30/20 18:20 Home Medications: Home Meds Fluticasone/Salmeterol [Advair 500-50] 1 puff INH BID 12/30/14 [History] Lisinopril 10 mg PO DAILY 12/30/14 [History] Testosterone Cypionate 200 mg IM Q14D 12/30/14 [History] amLODIPine [Norvasc] 10 mg PO DAILY 12/30/14 [History] atorvaSTATin [Lipitor] 20 mg PO BEDTIME 12/30/14 [History] Montelukast [Singulair] 10 mg PO BEDTIME 10/07/15 [History] Omeprazole 40 mg PO ACBREAKFAST 06/16/16 [History] Pregabalin [Lyrica] 50 mg PO BID 06/16/16 [History] risperiDONE 1.5 mg PO DAILY 06/16/16 [History] risperiDONE 2 mg PO BEDTIME 06/16/16 [History] sitaGLIPtin Phos/Metformin HCl [Janumet Xr 50-1,000 mg Tablet] 2 tab PO WITHDINNER 06/16/16 [History] Benztropine Mesylate 0.25 mg PO BID 06/18/18 [History] traZODone HCl [Trazodone HCl] 100 mg PO BID 06/18/18 [History] Metoprolol Succinate 50 mg PO BEDTIME 03/08/20 [History] Levalbuterol Tartrate [Xopenex Hfa] 2 puff INH BID PRN 04/10/20 [History] predniSONE [Prednisone] 2.5 mg PO DAILY 04/10/20 [History] Past Medical History HEENT History: Reports: Allergic Rhinitis, Cataract, Impaired Vision Other HEENT History: wears glasses, has no teeth- no dentures Cardiovascular History: Reports: High Cholesterol, Hypertension Respiratory History: Reports: Asthma. Denies: COPD Other Respiratory History: denies COPD Gastrointestinal History: Reports: Colon Polyp, Diverticulosis, GERD, Hiatal Hernia. Denies: Cirrhosis Genitourinary History: Reports: None. 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 Was taking it for ten years Oncologic (Cancer) History: Reports: None Dermatologic History: Reports: Other (See Below) Other Dermatologic History: debridement of right leg abscess - Infectious Disease History Infectious Disease History: Reports: MRSA Other Infectious Disease History: Right leg wound-healed - Past Surgical History HEENT Surgical History: Reports: Cataract Surgery Cardiovascular Surgical History: Reports: None GI Surgical History: Reports: Colonoscopy, EGD Endocrine Surgical History: Reports: None Neurological Surgical History: Reports: None Musculoskeletal Surgical History: Reports: ORIF, Other (See Below) Other Musculoskeletal Surgeries/Procedures:: I&D R calf, ORIF right leg- hardware removed Social & Family History - Family History Family Medical History: Noncontributory - Tobacco Use Smoking Status *Q: Former Smoker Used Tobacco, but Quit: Yes Month/Year Tobacco Last Used: 1998 - Caffeine Use Caffeine Use: Reports: None - Recreational Drug Use Recreational Drug Use: No - Living Situation & Occupation Living situation: Reports: Single H&P Review of Systems - Review of Systems: Review Of Systems: Comprehensive ROS is negative, except as noted in HPI. Exam - Exam Exam: See Below - Vital Signs Vital Signs: Last Vital Signs Temp 36.6 C 04/30/20 13:58 Pulse 112 H 04/30/20 18:02 Resp 20 04/30/20 18:02 BP 119/84 04/30/20 18:02 Pulse Ox 93 L 04/30/20 18:02 Weight: 92 kg - Exam General: Alert, Oriented, Cooperative HEENT: Conjunctiva Clear, EOMI, Posterior Pharynx Clear, Pupils Equal Neck: Supple, Trachea Midline Lungs: Normal Respiratory Effort, Wheezing Cardiovascular: Regular Rhythm, Tachycardia GI/Abdominal Exam: Normal Bowel Sounds, Soft, Non-Tender, No Distention Extremities: Normal Inspection, No Pedal Edema Skin: Warm, Dry, Intact Neurological: Cranial Nerves Intact, Strength Equal Bilateral, Normal Speech Neuro Extensive - Mental Status: Alert, Oriented x3, Normal Mood/Affect Psychiatric: Alert, Normal Affect, Normal Mood - Patient Data Lab Results Last 24 hrs: Laboratory Results - last 24 hr 04/30/20 04/30/20 04/30/20 Range/Units 14:10 14:10 14:10 WBC 8.09 (4.0-11.0) K/uL RBC 5.56 (4.50-5.90) M/uL Hgb 15.4 (13.0-17.0) g/dL Hct 48.0 (38.0-50.0) % MCV 86.3 (80.0-98.0) fL MCH 27.7 (27.0-32.0) pg MCHC 32.1 (31.0-37.0) g/dL RDW Std Deviation 51.0 (28.0-62.0) fl RDW Coeff of Rober 16 H (11.0-15.0) % Plt Count 205 (150-400) K/uL MPV 10.30 (7.40-12.00) fL Neut % (Auto) 70.0 (48.0-80.0) % Lymph % (Auto) 11.6 L (16.0-40.0) % [place] % (Auto) 11.1 (0.0-15.0) % Eos % (Auto) 6.8 (0.0-7.0) % Baso % (Auto) 0.5 (0.0-1.5) % Neut # (Auto) 5.7 (1.4-5.7) K/uL Lymph # (Auto) 0.9 (0.6-2.4) K/uL [place] # (Auto) 0.9 H (0.0-0.8) K/uL Eos # (Auto) 0.6 (0.0-0.7) K/uL Baso # (Auto) 0.0 (0.0-0.1) K/uL Nucleated RBC % 0.0 /100WBC Nucleated RBCs # 0 K/uL VBG pH 7.43 H (7.31-7.41) VBG pCO2 35 (35-45) mmHG VBG pO2 55 H (30-40) mmHG VBG HCO3 23 (22-30) mEq/L VBG Total CO2 20 L (41-51) mmol/L VBG Base Excess -0.9 (-3.0-3.0) Sodium 137 (136-148) mmol/L Potassium 4.3 (3.5-5.1) mmol/L Chloride 102 (98-107) mmol/L Carbon Dioxide 22.2 (21.0-32.0) mmol/L BUN 10 (7.0-18.0) mg/dL Creatinine 0.9 (0.8-1.3) mg/dL Est Cr Clr Drug Dosing 94.60 mL/min Estimated GFR (MDRD) > 60.0 ml/min Glucose 200 H (74-106) mg/dL Calcium 8.8 (8.5-10.1) mg/dL Total Bilirubin 0.5 (0.2-1.0) mg/dL AST 37 (15-37) IU/L ALT 38 (14-63) IU/L Alkaline Phosphatase 84 (46-116) U/L Troponin I < 0.050 (0.000-0.056) ng/mL Total Protein 7.3 (6.4-8.2) g/dL Albumin 3.5 (3.4-5.0) g/dL Globulin 3.8 (2.6-4.0) g/dL Albumin/Globulin Ratio 0.9 (0.9-1.6) COVID-19 ([facility]) (NEGATIVE) 04/30/20 Range/Units 16:10 WBC (4.0-11.0) K/uL RBC (4.50-5.90) M/uL Hgb (13.0-17.0) g/dL Hct (38.0-50.0) % MCV (80.0-98.0) fL MCH (27.0-32.0) pg MCHC (31.0-37.0) g/dL RDW Std Deviation (28.0-62.0) fl RDW Coeff of Rober (11.0-15.0) % Plt Count (150-400) K/uL MPV (7.40-12.00) fL Neut % (Auto) (48.0-80.0) % Lymph % (Auto) (16.0-40.0) % [place] % (Auto) (0.0-15.0) % Eos % (Auto) (0.0-7.0) % Baso % (Auto) (0.0-1.5) % Neut # (Auto) (1.4-5.7) K/uL Lymph # (Auto) (0.6-2.4) K/uL [place] # (Auto) (0.0-0.8) K/uL Eos # (Auto) (0.0-0.7) K/uL Baso # (Auto) (0.0-0.1) K/uL Nucleated RBC % /100WBC Nucleated RBCs # K/uL VBG pH (7.31-7.41) VBG pCO2 (35-45) mmHG VBG pO2 (30-40) mmHG VBG HCO3 (22-30) mEq/L VBG Total CO2 (41-51) mmol/L VBG Base Excess (-3.0-3.0) Sodium (136-148) mmol/L Potassium (3.5-5.1) mmol/L Chloride (98-107) mmol/L Carbon Dioxide (21.0-32.0) mmol/L BUN (7.0-18.0) mg/dL Creatinine (0.8-1.3) mg/dL Est Cr Clr Drug Dosing mL/min Estimated GFR (MDRD) ml/min Glucose (74-106) mg/dL Calcium (8.5-10.1) mg/dL Total Bilirubin (0.2-1.0) mg/dL AST (15-37) IU/L ALT (14-63) IU/L Alkaline Phosphatase (46-116) U/L Troponin I (0.000-0.056) ng/mL Total Protein (6.4-8.2) g/dL Albumin (3.4-5.0) g/dL Globulin (2.6-4.0) g/dL Albumin/Globulin Ratio (0.9-1.6) COVID-19 ([facility]) NEGATIVE (NEGATIVE) Result Diagrams: 04/30/20 14:10 04/30/20 14:10 Sepsis Event Note - Evaluation Sepsis Screening Result: No Definite Risk - Focused Exam Vital Signs: Vital Signs Temp Pulse Resp BP Pulse Ox 04/30/20 18:02 112 H 20 119/84 93 L 04/30/20 17:16 108 H 24 H 121/78 95 04/30/20 15:54 102 H 24 H 113/79 94 L 04/30/20 14:05 92 L 04/30/20 13:58 36.6 C 120 H 24 H 112/76 89 L Date Exam was Performed: 04/30/20 Time Exam was Performed: 18:50 Problem List Initiated/Reviewed/Updated: Yes Orders Last 24hrs: Active Orders 24 hr Category Date Time Status Patient Status [ADT] Routine ADT 04/30/20 15:55 Active Blood Glucose Check, Bedside [RC] QIDACANDBED Care 04/30/20 18:21 Ordered Cardiac Monitoring [RC] . DIRECTED Care 04/30/20 13:52 Active Oxygen Therapy [RC] PRN Care 04/30/20 18:21 Ordered Up ad Tali [RC] ASDIRECTED Care 04/30/20 18:21 Ordered VTE/DVT Education [RC] PER UNIT ROUTINE Care 04/30/20 18:21 Ordered Vital Signs [RC] Q4H Care 04/30/20 18:21 Ordered ADA Diabetic [[place] [employer] Diet] [DIET Diet 04/30/20 Lunch Ordered ] CBC WITH AUTO DIFF [HEME] AM Lab 05/01/20 05:11 Ordered COMPREHENSIVE METABOLIC PN,CMP [CHEM] AM Lab 05/01/20 05:11 Ordered Acetaminophen [Tylenol] Med 04/30/20 18:21 Ordered 650 mg PO Q4H PRN Heparin Sodium Med 04/30/20 18:30 Ordered 5,000 units SUBCUT Q8H Insulin Aspart [NovoLOG] Med 05/01/20 07:30 Ordered See Protocol SUBCUT TIDAC Ondansetron [Zofran ODT] Med 04/30/20 18:21 Ordered 4 mg PO Q4H PRN Ondansetron [Zofran] Med 04/30/20 18:21 Ordered 4 mg IVPUSH Q4H PRN Sodium Chloride 0.9% [Saline Flush] Med 04/30/20 13:52 Active 10 ml FLUSH ASDIRECTED PRN Sodium Chloride 0.9% [Saline Flush] Med 04/30/20 13:52 Active 2.5 ml FLUSH ASDIRECTED PRN Saline Lock Insert [OM.PC] Stat Oth 04/30/20 13:53 Ordered Resuscitation Status Routine Resus Stat 04/30/20 18:21 Ordered Medication Orders Acetaminophen (Tylenol) 650 mg PO Q4H PRN PRN Reason: Pain (Mild 1-3)/fever Heparin Sodium (Porcine) (Heparin Sodium) 5,000 units SUBCUT Q8H DAMIEN Insulin Aspart (Novolog) 0 unit SUBCUT TIDAC DAMIEN; Protocol Ondansetron HCl (Zofran Odt) 4 mg PO Q4H PRN PRN Reason: nausea, able to take PO Ondansetron HCl (Zofran) 4 mg IVPUSH Q4H PRN PRN Reason: Nausea Sodium Chloride (Saline Flush) 10 ml FLUSH ASDIRECTED PRN PRN Reason: Keep Vein Open Last Admin: 04/30/20 14:27 Dose: 10 ml Documented by: CACHORRO Sodium Chloride (Saline Flush) 2.5 ml FLUSH ASDIRECTED PRN PRN Reason: Keep Vein Open Last Admin: 04/30/20 14:27 Dose: 2.5 ml Documented by: CACHORRO Assessment/Plan Comment:: Assessment and Plan: 1. Acute hypoxic respiratory failure secondary to asthma exacerbation: - Admit to med/surg. Supplemental oxygen as needed. DuoNebs q4 DAMIEN for now. PO prednisone 40 mg qd. 2. Diabetes mellitus type 2: - ADA diet, accucheks and SSI. 3. DVT prophylaxis: heparin. 4. Past medical history of schizophrenia and HTN: - Continue home medications.
[2020-04-30] MEDS: Heparin Sodium 5,000 Units/ML Vial SUBCUT SCH (19:14)
[2020-04-30] MEDS ORDERED: Metoprolol Succinate 50 MG Tab.ER PO SCH (21:00)
[2020-04-30] MEDS: Pregabalin 50 MG Cap PO SCH (21:02)
[2020-04-30] MEDS: Albuterol/Ipratropium 3.0-0.5 MG/3 ML Neb Soln NEB SCH (21:50)
[2020-04-30] MEDS ORDERED: risperiDONE 1 MG Tab PO SCH (23:30)
[2020-04-30] MEDS: Benztropine 1 MG Tab PO SCH (23:50)
[2020-05-01] MEDS ORDERED: traZODone 50 MG Tab ONE (00:07)
[2020-05-01] MEDS: Albuterol/Ipratropium 3.0-0.5 MG/3 ML Neb Soln NEB SCH ×3 (02:22→09:56)
[2020-05-01] MEDS: Heparin Sodium 5,000 Units/ML Vial SUBCUT SCH ×2 (02:23→10:54)
[2020-05-01 06:16] LABS: BLOOD UREA NITROGEN,BUN 17 mg/dL (7.0-18.0); CARBON DIOXIDE,CO2 23.6 mmol/L (21.0-32.0); CHLORIDE,CL 102 mmol/L (98-107); GLUCOSE RANDOM 160 mg/dL (74-106); POTASSIUM,K 5.6 mmol/L (3.5-5.1); SODIUM,NA 134 mmol/L (136-148)
[2020-05-01] MEDS: Insulin Aspart 100 Units/ML 3 ML Pen SUBCUT SCH ×2 (06:33→12:16)
[2020-05-01] MEDS ORDERED: Pantoprazole 40 MG Tab.CR PO SCH (07:30)
[2020-05-01] MEDS ORDERED: predniSONE 20 MG Tab PO SCH (08:00)
[2020-05-01] MEDS: Benztropine 1 MG Tab PO SCH (08:46)
[2020-05-01] MEDS: Pregabalin 50 MG Cap PO SCH (08:51)
[2020-05-01] MEDS ORDERED: risperiDONE 1 MG Tab PO SCH (09:00)
[2020-05-01 11:02] VITALS: BP 129/69; PULSE 87
[2020-05-01 11:29] LABS: BLOOD UREA NITROGEN,BUN 22 mg/dL (7.0-18.0); CARBON DIOXIDE,CO2 24.4 mmol/L (21.0-32.0); CHLORIDE,CL 103 mmol/L (98-107); GLUCOSE RANDOM 130 mg/dL (74-106); POTASSIUM,K 4.9 mmol/L (3.5-5.1); SODIUM,NA 138 mmol/L (136-148)
--- NOTE | 2020-05-01 12:59 | PCM.DCSUM1 ---
<Brenton Thomas - Last Filed: 05/01/20 12:55> Discharge Summary - Hospital Course Free Text/Narrative:: 60-year-old male admitted for acute asthma exacerbation. He has a PMH of schizophrenia, DM type 2 and HTN. On admission, patient was requiring 2 L of supplemental oxygen. CXR negative, COVID19 test negative, CBC and CMP unremarkable. Troponin negative. Patient was treated with supplemental oxygen, DuoNebs and PO prednisone. On day of discharge, patient was weaned off of supplemental oxygen and reported feeling at his baseline. He was discharged on home asthma medication regimen. Also provided with script for PO prednisone 40 mg for the next 4 days and then resume his home PO prednisone dose of 2.5 mg qd thereafter. Advised to follow-up with his PCP on discharge. - Discharge Data Discharge Date: 05/01/20 Discharge Disposition: Home, Self-Care 01 Condition: Stable - Referral to Home Health Primary Care Physician: Moe Clayton MD - Patient Instructions Diet: Diabetic Diet Activity: As Tolerated Notify Provider of: Fever, Increased Pain, Swelling and Redness, Drainage, Nausea and/or Vomiting - Discharge Plan *PRESCRIPTION DRUG MONITORING PROGRAM REVIEWED*: Not Applicable *COPY OF PRESCRIPTION DRUG MONITORING REPORT IN PATIENT LUCIA: Not Applicable Prescriptions/Med Rec: predniSONE [Prednisone] 40 mg PO DAILY 4 Days #8 tablet Home Medications: Home Meds Fluticasone/Salmeterol [Advair 500-50] 1 puff INH BID 12/30/14 [History] Lisinopril 10 mg PO DAILY 12/30/14 [History] Testosterone Cypionate 200 mg IM Q14D 12/30/14 [History] amLODIPine [Norvasc] 10 mg PO DAILY 12/30/14 [History] atorvaSTATin [Lipitor] 20 mg PO BEDTIME 12/30/14 [History] Montelukast [Singulair] 10 mg PO BEDTIME 10/07/15 [History] Omeprazole 40 mg PO ACBREAKFAST 06/16/16 [History] Pregabalin [Lyrica] 50 mg PO BID 06/16/16 [History] risperiDONE 1.5 mg PO DAILY 06/16/16 [History] risperiDONE 2 mg PO BEDTIME 06/16/16 [History] sitaGLIPtin Phos/Metformin HCl [Janumet Xr 50-1,000 mg Tablet] 2 tab PO WITHDINNER 06/16/16 [History] Benztropine Mesylate 0.25 mg PO BID 06/18/18 [History] traZODone HCl [Trazodone HCl] 100 mg PO BEDTIME 06/18/18 [History] Metoprolol Succinate 50 mg PO BEDTIME 03/08/20 [History] Levalbuterol Tartrate [Xopenex Hfa] 2 puff INH BID PRN 04/10/20 [History] predniSONE [Prednisone] 2.5 mg PO DAILY 04/10/20 [History] predniSONE [Prednisone] 40 mg PO DAILY 4 Days #8 tablet 05/01/20 [Rx] Oxygen Therapy Mode: Room Air Patient Handouts: Asthma, Adult, [id number], Prednisone tablets Referrals: Moe Clayton MD [Primary Care Provider] - 05/08/20 2:00 pm (Please arrive 15 minutes early with your identification, insurance cards and your own facemask.) - Discharge Summary/Plan Comment DC Time >30 min.: No - Patient Data Vitals - Most Recent: Last Vital Signs Temp 36.6 C 05/01/20 11:00 Pulse 87 05/01/20 11:00 Resp 20 05/01/20 11:00 BP 129/69 05/01/20 11:00 Pulse Ox 92 L 05/01/20 11:00 Weight - Most Recent: 92 kg I&O - Last 24 hours: Intake & Output 04/30/20 05/01/20 05/01/20 22:59 06:59 14:59 Intake Total 800 Output Total 600 Balance 200 Lab Results - Last 24 hrs: Laboratory Results - last 24 hr 04/30/20 04/30/20 04/30/20 Range/Units 14:10 14:10 14:10 WBC 8.09 (4.0-11.0) K/uL RBC 5.56 (4.50-5.90) M/uL Hgb 15.4 (13.0-17.0) g/dL Hct 48.0 (38.0-50.0) % MCV 86.3 (80.0-98.0) fL MCH 27.7 (27.0-32.0) pg MCHC 32.1 (31.0-37.0) g/dL RDW Std Deviation 51.0 (28.0-62.0) fl RDW Coeff of Rober 16 H (11.0-15.0) % Plt Count 205 (150-400) K/uL MPV 10.30 (7.40-12.00) fL Neut % (Auto) 70.0 (48.0-80.0) % Lymph % (Auto) 11.6 L (16.0-40.0) % [place] % (Auto) 11.1 (0.0-15.0) % Eos % (Auto) 6.8 (0.0-7.0) % Baso % (Auto) 0.5 (0.0-1.5) % Neut # (Auto) 5.7 (1.4-5.7) K/uL Lymph # (Auto) 0.9 (0.6-2.4) K/uL [place] # (Auto) 0.9 H (0.0-0.8) K/uL Eos # (Auto) 0.6 (0.0-0.7) K/uL Baso # (Auto) 0.0 (0.0-0.1) K/uL Nucleated RBC % 0.0 /100WBC Nucleated RBCs # 0 K/uL VBG pH 7.43 H (7.31-7.41) VBG pCO2 35 (35-45) mmHG VBG pO2 55 H (30-40) mmHG VBG HCO3 23 (22-30) mEq/L VBG Total CO2 20 L (41-51) mmol/L VBG Base Excess -0.9 (-3.0-3.0) Sodium 137 (136-148) mmol/L Potassium 4.3 (3.5-5.1) mmol/L Chloride 102 (98-107) mmol/L Carbon Dioxide 22.2 (21.0-32.0) mmol/L BUN 10 (7.0-18.0) mg/dL Creatinine 0.9 (0.8-1.3) mg/dL Est Cr Clr Drug Dosing 94.60 mL/min Estimated GFR (MDRD) > 60.0 ml/min Glucose 200 H (74-106) mg/dL POC Glucose (60-110) mg/dL Calcium 8.8 (8.5-10.1) mg/dL Total Bilirubin 0.5 (0.2-1.0) mg/dL AST 37 (15-37) IU/L ALT 38 (14-63) IU/L Alkaline Phosphatase 84 (46-116) U/L Troponin I < 0.050 (0.000-0.056) ng/mL Total Protein 7.3 (6.4-8.2) g/dL Albumin 3.5 (3.4-5.0) g/dL Globulin 3.8 (2.6-4.0) g/dL Albumin/Globulin Ratio 0.9 (0.9-1.6) COVID-19 ([facility]) (NEGATIVE) 04/30/20 04/30/20 04/30/20 Range/Units 16:10 18:52 21:06 WBC (4.0-11.0) K/uL RBC (4.50-5.90) M/uL Hgb (13.0-17.0) g/dL Hct (38.0-50.0) % MCV (80.0-98.0) fL MCH (27.0-32.0) pg MCHC (31.0-37.0) g/dL RDW Std Deviation (28.0-62.0) fl RDW Coeff of Rober (11.0-15.0) % Plt Count (150-400) K/uL MPV (7.40-12.00) fL Neut % (Auto) (48.0-80.0) % Lymph % (Auto) (16.0-40.0) % [place] % (Auto) (0.0-15.0) % Eos % (Auto) (0.0-7.0) % Baso % (Auto) (0.0-1.5) % Neut # (Auto) (1.4-5.7) K/uL Lymph # (Auto) (0.6-2.4) K/uL [place] # (Auto) (0.0-0.8) K/uL Eos # (Auto) (0.0-0.7) K/uL Baso # (Auto) (0.0-0.1) K/uL Nucleated RBC % /100WBC Nucleated RBCs # K/uL VBG pH (7.31-7.41) VBG pCO2 (35-45) mmHG VBG pO2 (30-40) mmHG VBG HCO3 (22-30) mEq/L VBG Total CO2 (41-51) mmol/L VBG Base Excess (-3.0-3.0) Sodium (136-148) mmol/L Potassium (3.5-5.1) mmol/L Chloride (98-107) mmol/L Carbon Dioxide (21.0-32.0) mmol/L BUN (7.0-18.0) mg/dL Creatinine (0.8-1.3) mg/dL Est Cr Clr Drug Dosing mL/min Estimated GFR (MDRD) ml/min Glucose (74-106) mg/dL POC Glucose 165 H 202 H (60-110) mg/dL Calcium (8.5-10.1) mg/dL Total Bilirubin (0.2-1.0) mg/dL AST (15-37) IU/L ALT (14-63) IU/L Alkaline Phosphatase (46-116) U/L Troponin I (0.000-0.056) ng/mL Total Protein (6.4-8.2) g/dL Albumin (3.4-5.0) g/dL Globulin (2.6-4.0) g/dL Albumin/Globulin Ratio (0.9-1.6) COVID-19 ([facility]) NEGATIVE (NEGATIVE) 05/01/20 05/01/20 05/01/20 Range/Units 05:30 05:30 06:15 WBC 5.40 (4.0-11.0) K/uL RBC 5.33 (4.50-5.90) M/uL Hgb 14.4 (13.0-17.0) g/dL Hct 46.1 (38.0-50.0) % MCV 86.5 (80.0-98.0) fL MCH 27.0 (27.0-32.0) pg MCHC 31.2 (31.0-37.0) g/dL RDW Std Deviation 50.9 (28.0-62.0) fl RDW Coeff of Rober 16 H (11.0-15.0) % Plt Count 219 (150-400) K/uL MPV 10.70 (7.40-12.00) fL Neut % (Auto) 86.2 H (48.0-80.0) % Lymph % (Auto) 9.3 L (16.0-40.0) % [place] % (Auto) 4.3 (0.0-15.0) % Eos % (Auto) 0.0 (0.0-7.0) % Baso % (Auto) 0.2 (0.0-1.5) % Neut # (Auto) 4.7 (1.4-5.7) K/uL Lymph # (Auto) 0.5 L (0.6-2.4) K/uL [place] # (Auto) 0.2 (0.0-0.8) K/uL Eos # (Auto) 0.0 (0.0-0.7) K/uL Baso # (Auto) 0.0 (0.0-0.1) K/uL Nucleated RBC % 0.0 /100WBC Nucleated RBCs # 0 K/uL VBG pH (7.31-7.41) VBG pCO2 (35-45) mmHG VBG pO2 (30-40) mmHG VBG HCO3 (22-30) mEq/L VBG Total CO2 (41-51) mmol/L VBG Base Excess (-3.0-3.0) Sodium 134 L (136-148) mmol/L Potassium 5.6 H (3.5-5.1) mmol/L Chloride 102 (98-107) mmol/L Carbon Dioxide 23.6 (21.0-32.0) mmol/L BUN 17 (7.0-18.0) mg/dL Creatinine 1.0 (0.8-1.3) mg/dL Est Cr Clr Drug Dosing 85.26 mL/min Estimated GFR (MDRD) > 60.0 ml/min Glucose 160 H (74-106) mg/dL POC Glucose 149 H (60-110) mg/dL Calcium 8.2 L (8.5-10.1) mg/dL Total Bilirubin 0.5 (0.2-1.0) mg/dL AST 21 (15-37) IU/L ALT 35 (14-63) IU/L Alkaline Phosphatase 69 (46-116) U/L Troponin I (0.000-0.056) ng/mL Total Protein 7.0 (6.4-8.2) g/dL Albumin 3.3 L (3.4-5.0) g/dL Globulin 3.7 (2.6-4.0) g/dL Albumin/Globulin Ratio 0.9 (0.9-1.6) COVID-19 ([facility]) (NEGATIVE) 05/01/20 05/01/20 Range/Units 10:56 11:06 WBC (4.0-11.0) K/uL RBC (4.50-5.90) M/uL Hgb (13.0-17.0) g/dL Hct (38.0-50.0) % MCV (80.0-98.0) fL MCH (27.0-32.0) pg MCHC (31.0-37.0) g/dL RDW Std Deviation (28.0-62.0) fl RDW Coeff of Rober (11.0-15.0) % Plt Count (150-400) K/uL MPV (7.40-12.00) fL Neut % (Auto) (48.0-80.0) % Lymph % (Auto) (16.0-40.0) % [place] % (Auto) (0.0-15.0) % Eos % (Auto) (0.0-7.0) % Baso % (Auto) (0.0-1.5) % Neut # (Auto) (1.4-5.7) K/uL Lymph # (Auto) (0.6-2.4) K/uL [place] # (Auto) (0.0-0.8) K/uL Eos # (Auto) (0.0-0.7) K/uL Baso # (Auto) (0.0-0.1) K/uL Nucleated RBC % /100WBC Nucleated RBCs # K/uL VBG pH (7.31-7.41) VBG pCO2 (35-45) mmHG VBG pO2 (30-40) mmHG VBG HCO3 (22-30) mEq/L VBG Total CO2 (41-51) mmol/L VBG Base Excess (-3.0-3.0) Sodium 138 (136-148) mmol/L Potassium 4.9 (3.5-5.1) mmol/L Chloride 103 (98-107) mmol/L Carbon Dioxide 24.4 (21.0-32.0) mmol/L BUN 22 H (7.0-18.0) mg/dL Creatinine 0.8 (0.8-1.3) mg/dL Est Cr Clr Drug Dosing 106.58 mL/min Estimated GFR (MDRD) > 60.0 ml/min Glucose 130 H (74-106) mg/dL POC Glucose 119 H (60-110) mg/dL Calcium 8.7 (8.5-10.1) mg/dL Total Bilirubin (0.2-1.0) mg/dL AST (15-37) IU/L ALT (14-63) IU/L Alkaline Phosphatase (46-116) U/L Troponin I (0.000-0.056) ng/mL Total Protein (6.4-8.2) g/dL Albumin (3.4-5.0) g/dL Globulin (2.6-4.0) g/dL Albumin/Globulin Ratio (0.9-1.6) COVID-19 ([facility]) (NEGATIVE) Med Orders - Current: Current Medications Acetaminophen (Tylenol) 650 mg PO Q4H PRN PRN Reason: Pain (Mild 1-3)/fever Last Admin: 05/01/20 00:05 Dose: 650 mg Documented by: Albuterol/Ipratropium (Duoneb 3.0-0.5 Mg/3 Ml) 3 ml NEB Q4HRRT [facility] Last Admin: 05/01/20 09:56 Dose: 3 ml Documented by: Benztropine Mesylate (Cogentin) 0.5 mg PO BID [facility] Last Admin: 05/01/20 08:46 Dose: 0.5 mg Documented by: Heparin Sodium (Porcine) (Heparin Sodium) 5,000 units SUBCUT Q8H [facility] Last Admin: 05/01/20 10:54 Dose: 5,000 units Documented by: Insulin Aspart (Novolog) 0 unit SUBCUT TIDAC [facility]; Protocol Last Admin: 05/01/20 12:16 Dose: Not Given Documented by: Metoprolol Succinate (Toprol Xl) 50 mg PO BEDTIME [facility] Last Admin: 04/30/20 20:58 Dose: 50 mg Documented by: Ondansetron HCl (Zofran Odt) 4 mg PO Q4H PRN PRN Reason: nausea, able to take PO Ondansetron HCl (Zofran) 4 mg IVPUSH Q4H PRN PRN Reason: Nausea Pantoprazole Sodium (Protonix) 40 mg PO ACBREAKFAST [facility] Last Admin: 05/01/20 06:30 Dose: 40 mg Documented by: Prednisone (Prednisone) 40 mg PO WITHBREAKFAST [facility] Last Admin: 05/01/20 08:44 Dose: 40 mg Documented by: Pregabalin (Lyrica) 50 mg PO BID [facility] Last Admin: 05/01/20 08:51 Dose: 50 mg Documented by: Risperidone (Risperidal) 1.5 mg PO DAILY [facility] Last Admin: 05/01/20 08:45 Dose: 1.5 mg Documented by: Risperidone (Risperidal) 2 mg PO BEDTIME [facility] Last Admin: 05/01/20 00:13 Dose: 2 mg Documented by: Sodium Chloride (Saline Flush) 10 ml FLUSH ASDIRECTED PRN PRN Reason: Keep Vein Open Last Admin: 04/30/20 14:27 Dose: 10 ml Documented by: Sodium Chloride (Saline Flush) 2.5 ml FLUSH ASDIRECTED PRN PRN Reason: Keep Vein Open Last Admin: 04/30/20 14:27 Dose: 2.5 ml Documented by: Trazodone HCl (Trazodone Hcl) 100 mg PO BEDTIME [facility] Last Admin: 05/01/20 00:16 Dose: Not Given Documented by: Discontinued Medications Albuterol (Proventil Neb Soln) 5 mg NEB ONETIME ONE Stop: 04/30/20 14:07 Last Admin: 04/30/20 14:17 Dose: 5 mg Documented by: Albuterol (Proventil Neb Soln) 10 mg NEB ONETIME ONE Stop: 04/30/20 15:51 Last Admin: 04/30/20 16:00 Dose: 10 mg Documented by: Albuterol/Ipratropium (Duoneb 3.0-0.5 Mg/3 Ml) 6 ml NEB ONETIME ONE Stop: 04/30/20 14:07 Last Admin: 04/30/20 14:21 Dose: 6 ml Documented by: Albuterol/Ipratropium (Duoneb 3.0-0.5 Mg/3 Ml) Confirm Administered Dose 3 ml .ROUTE .STK-MED ONE Stop: 04/30/20 14:21 Last Admin: 04/30/20 14:27 Dose: Not Given Documented by: Magnesium Sulfate 2 gm/ Premix 50 mls @ 50 mls/hr IV ONETIME ONE Stop: 04/30/20 15:06 Last Admin: 04/30/20 14:26 Dose: 50 mls/hr Documented by: Prednisone (Prednisone) 60 mg PO ONETIME ONE Stop: 04/30/20 14:08 Last Admin: 04/30/20 14:26 Dose: 60 mg Documented by: Trazodone HCl (Trazodone) Confirm Administered Dose 100 mg .ROUTE .STK-MED ONE Stop: 05/01/20 00:08 Last Admin: 05/01/20 00:14 Dose: 100 mg Documented by: <Abdirizak Cross - Last Filed: 05/02/20 11:45> Discharge Summary - Referral to Home Health Primary Care Physician: Moe Clayton MD - Patient Data Vitals - Most Recent: Last Vital Signs Temp 36.6 C 05/01/20 11:00 Pulse 87 05/01/20 11:00 Resp 20 05/01/20 11:00 BP 129/69 05/01/20 11:00 Pulse Ox 92 L 05/01/20 11:00 Med Orders - Current: Current Medications Discontinued Medications Acetaminophen (Tylenol) 650 mg PO Q4H PRN PRN Reason: Pain (Mild 1-3)/fever Last Admin: 05/01/20 00:05 Dose: 650 mg Documented by: Albuterol (Proventil Neb Soln) 5 mg NEB ONETIME ONE Stop: 04/30/20 14:07 Last Admin: 04/30/20 14:17 Dose: 5 mg Documented by: Albuterol (Proventil Neb Soln) 10 mg NEB ONETIME ONE Stop: 04/30/20 15:51 Last Admin: 04/30/20 16:00 Dose: 10 mg Documented by: Albuterol/Ipratropium (Duoneb 3.0-0.5 Mg/3 Ml) 6 ml NEB ONETIME ONE Stop: 04/30/20 14:07 Last Admin: 04/30/20 14:21 Dose: 6 ml Documented by: Albuterol/Ipratropium (Duoneb 3.0-0.5 Mg/3 Ml) Confirm Administered Dose 3 ml .ROUTE .STK-MED ONE Stop: 04/30/20 14:21 Last Admin: 04/30/20 14:27 Dose: Not Given Documented by: Albuterol/Ipratropium (Duoneb 3.0-0.5 Mg/3 Ml) 3 ml NEB Q4HRRT [facility] Last Admin: 05/01/20 09:56 Dose: 3 ml Documented by: Benztropine Mesylate (Cogentin) 0.5 mg PO BID [facility] Last Admin: 05/01/20 08:46 Dose: 0.5 mg Documented by: Heparin Sodium (Porcine) (Heparin Sodium) 5,000 units SUBCUT Q8H [facility] Last Admin: 05/01/20 10:54 Dose: 5,000 units Documented by: Magnesium Sulfate 2 gm/ Premix 50 mls @ 50 mls/hr IV ONETIME ONE Stop: 04/30/20 15:06 Last Admin: 04/30/20 14:26 Dose: 50 mls/hr Documented by: Insulin Aspart (Novolog) 0 unit SUBCUT TIDAC [facility]; Protocol Last Admin: 05/01/20 12:16 Dose: Not Given Documented by: Metoprolol Succinate (Toprol Xl) 50 mg PO BEDTIME [facility] Last Admin: 04/30/20 20:58 Dose: 50 mg Documented by: Ondansetron HCl (Zofran Odt) 4 mg PO Q4H PRN PRN Reason: nausea, able to take PO Ondansetron HCl (Zofran) 4 mg IVPUSH Q4H PRN PRN Reason: Nausea Pantoprazole Sodium (Protonix) 40 mg PO ACBREAKFAST [facility] Last Admin: 05/01/20 06:30 Dose: 40 mg Documented by: Prednisone (Prednisone) 60 mg PO ONETIME ONE Stop: 04/30/20 14:08 Last Admin: 04/30/20 14:26 Dose: 60 mg Documented by: Prednisone (Prednisone) 40 mg PO WITHBREAKFAST [facility] Last Admin: 05/01/20 08:44 Dose: 40 mg Documented by: Pregabalin (Lyrica) 50 mg PO BID [facility] Last Admin: 05/01/20 08:51 Dose: 50 mg Documented by: Risperidone (Risperidal) 1.5 mg PO DAILY [facility] Last Admin: 05/01/20 08:45 Dose: 1.5 mg Documented by: Risperidone (Risperidal) 2 mg PO BEDTIME [facility] Last Admin: 05/01/20 00:13 Dose: 2 mg Documented by: Sodium Chloride (Saline Flush) 10 ml FLUSH ASDIRECTED PRN PRN Reason: Keep Vein Open Last Admin: 04/30/20 14:27 Dose: 10 ml Documented by: Sodium Chloride (Saline Flush) 2.5 ml FLUSH ASDIRECTED PRN PRN Reason: Keep Vein Open Last Admin: 04/30/20 14:27 Dose: 2.5 ml Documented by: Trazodone HCl (Trazodone Hcl) 100 mg PO BEDTIME [facility] Last Admin: 05/01/20 00:16 Dose: Not Given Documented by: Trazodone HCl (Trazodone) Confirm Administered Dose 100 mg .ROUTE .STK-MED ONE Stop: 05/01/20 00:08 Last Admin: 05/01/20 00:14 Dose: 100 mg Documented by: Trazodone HCl (Trazodone) 100 mg PO BEDTIME [facility] - Free Text/Narrative Note: I have seen and evaluated the patient with the resident. I have discussed findings and treatment plan with the resident. I agree with the assessment and plan outlined in the following note.
[2020-05-01] MEDS ORDERED: traZODone 50 MG Tab PO SCH (21:00)
== END 2020-05-01 13:00 | disposition home or self-care (01) ==
LOC: MW.ED 13:45 → MW.MS 15:55
PROVIDERS: ADMIT Internal Medicine; ATTEND Internal Medicine
DX: J45.901 Unspecified asthma with (acute) exacerbation (principal); J96.01 Acute respiratory failure with hypoxia; I10 Essential (primary) hypertension; E78.00 Pure hypercholesterolemia, unspecified; M81.0 Age-related osteoporosis without current pathological fracture; F31.9 Bipolar disorder, unspecified; E11.40 Type 2 diabetes mellitus with diabetic neuropathy, unspecified; F20.9 Schizophrenia, unspecified; E66.9 Obesity, unspecified; K21.9 Gastro-esophageal reflux disease without esophagitis; Z20.828 Contact with and (suspected) exposure to other viral communicable diseases; Z88.6 Allergy status to analgesic agent; Z87.891 Personal history of nicotine dependence; Z88.5 Allergy status to narcotic agent; Z79.899 Other long term (current) drug therapy; Z79.51 Long term (current) use of inhaled steroids; Z79.4 Long term (current) use of insulin; Z79.84 Long term (current) use of oral hypoglycemic drugs; Z68.27 Body mass index [BMI] 27.0-27.9, adult
CPT/HCPCS: 36415; 71045; 80048; 80053; 82803; 82962; 84484; 85025; 87635; 93005; 94640; 96365; 96372; 99285; A9270; G0378; J1644; J3475; 99284; J7620-GY; U0002

== ENCOUNTER 2020-09-07 14:06 | Emergency (ER) | payer MEDICAID ==
[2020-09-07] MEDS ORDERED: Albuterol/Ipratropium 3.0-0.5 MG/3 ML Neb Soln NEB ONE ×2 (14:07→14:25)
[2020-09-07] MEDS ORDERED: methylPREDNISolone Sodium Succinate 125 MG/2 ML SDV IM ONE (14:07)
--- NOTE | 2020-09-07 14:15 | EDM.PDOC ---
ED HPI GENERAL MEDICAL PROBLEM - General Stated Complaint: SHORTNESS OF BREATH Time Seen by Provider: 09/07/20 14:13 Source of Information: Reports: Patient History Limitations: Reports: No Limitations - History of Present Illness INITIAL COMMENTS - FREE TEXT/NARRATIVE: HISTORY AND PHYSICAL: History of present illness: Patient is a 60-year-old male who presents to the emergency room with complaints of "asthma attack". He has a longstanding history of asthma and uses an Advair Diskus daily and a rescue albuterol inhaler. This afternoon he became short of breath and states he did not use his rescue inhaler, instead coming to the emergency department. He has no concerns of COVID-19, does not feel he has had any recent exposures. Patient denies any fever, chills, headache, change in vision, syncope or near syncope. Denies any chest pain, back pain or cough. Denies any GI or symptoms. Patient has been eating and drinking appropriately. Review of systems: As per history of present illness and below otherwise all systems reviewed and negative. Past medical history: As per history of present illness and as reviewed below otherwise noncontributory. Surgical history: As per history of present illness and as reviewed below otherwise noncontributory. Social history: See social history for further information Family history: As per history of present illness and as reviewed below otherwise noncontributory. Physical exam: General: Well developed and well nourished 60-year-old male. Alert and orientated x 3. Nontoxic in appearance and in no acute distress. Vital signs are stable and have been reviewed by me. Nursing notes were reviewed. HEENT: Atraumatic, normocephalic, pupils equal and reactive bilaterally, negative for conjunctival pallor or scleral icterus, mucous membranes moist, TMs normal bilaterally, throat clear, neck supple, nontender, trachea midline. No drooling or trismus noted. No meningeal signs. No hot potato voice noted. Lungs: Poor air exchange with fine expiratory wheezing throughout, chest nontender. Mild to moderate work of breathing, minor accessory muscles used. Heart: S1S2, regular rate and rhythm without overt murmur Abdomen: Soft, nondistended, nontender. Skin: Intact, warm, dry. No lesions or rashes noted. Hematologic: No petechiae or purpra. Mucosa appropriate color and normal nail bed color and refill. Extremities: Atraumatic, moves all extremities per self without difficulty or deficits, negative for cords or calf pain. Neurovascular unremarkable. Neuro: Awake, alert, oriented. Cranial nerves II through XII unremarkable. Ce rebellum unremarkable. Motor and sensory unremarkable throughout. Exam nonfocal. Psychiatric: Mood and affect are appropriate. Normal thought process. Answering questions appropriately. Notes: Patient feels improved after the DuoNeb and his lung sounds have also improved. Vital signs remained stable. Chest x-ray shows hyperinflation and chronic interstitial change without dense consolidation or effusion. I have talked with the patient about today's findings, in addition to providing specific details for plan of care. Reassessment at the time of disposition demonstrates that the patient is in no acute distress. The patient is stable for discharge, counseling was provided and we discussed in great detail signs and symptoms that would prompt them to return to the Emergency Department. Medication, follow up and supportive care measures were reviewed and discussed. Voices understanding and is agreeable to plan of care. Denies any further questions or concerns at this time. Diagnostics: Chest x-ray Therapeutics: DuoNeb x 3, Solu-Medrol Prescription: Prednisone, DuoNeb and nebulizer machine Impression: Asthma exacerbation Plan: 1. Today your chest x-ray was within normal limits (no pneumonia). Please take the inhaler and steroid as directed.. 2. Use the Nebulizer machine/medication as needed. 3. We encourage you to follow up with your primary care provider and/or recomme nded specialist in the next few days for re-evaluation and further care/management. If your symptoms should worsen, new symptoms develop or any of the signs and symptoms we discussed should arise please return to the emergency room or call 911 (if needed). Definitive disposition and diagnosis as appropriate pending reevaluation and review of above. - Related Data Allergies Allergy/AdvReac Type Severity Reaction Status Date / Time hydrocodone Allergy Hives Verified 09/07/20 14:11 ketorolac [From Toradol] Allergy Cannot Verified 09/07/20 14:11 Remember sucralfate [From Carafate] Allergy Hives Verified 09/07/20 14:11 tamsulosin Allergy Other Verified 09/07/20 14:11 theophylline Allergy Cannot Verified 09/07/20 14:11 Remember tramadol Allergy Hives Verified 09/07/20 14:11 Home Meds: Home Meds Fluticasone/Salmeterol [Advair 500-50] 1 puff INH BID 12/30/14 [History] Lisinopril 10 mg PO DAILY 12/30/14 [History] Testosterone Cypionate 200 mg IM Q14D 12/30/14 [History] amLODIPine [Norvasc] 10 mg PO DAILY 12/30/14 [History] atorvaSTATin [Lipitor] 20 mg PO BEDTIME 12/30/14 [History] Montelukast [Singulair] 10 mg PO BEDTIME 10/07/15 [History] Omeprazole 40 mg PO ACBREAKFAST 06/16/16 [History] Pregabalin [Lyrica] 50 mg PO BID 06/16/16 [History] risperiDONE 1.5 mg PO DAILY 06/16/16 [History] risperiDONE 2 mg PO BEDTIME 06/16/16 [History] sitaGLIPtin Phos/Metformin HCl [Janumet Xr 50-1,000 mg Tablet] 2 tab PO WITHDINNER 06/16/16 [History] Benztropine Mesylate 0.25 mg PO BID 06/18/18 [History] traZODone HCl [Trazodone HCl] 100 mg PO BEDTIME 06/18/18 [History] Metoprolol Succinate 50 mg PO BEDTIME 03/08/20 [History] Levalbuterol Tartrate [Xopenex Hfa] 2 puff INH BID PRN 04/10/20 [History] predniSONE [Prednisone] 2.5 mg PO DAILY 04/10/20 [History] predniSONE [Prednisone] 40 mg PO DAILY 4 Days #8 tablet 05/01/20 [Rx] Albuterol/Ipratropium [DuoNeb 3.0-0.5 MG/3 ML] 1 ampule INH Q4HR PRN #1 box 09/07/20 [Rx] predniSONE [Prednisone] 40 mg PO DAILY 5 Days #10 tablet 09/07/20 [Rx] Past Medical History HEENT History: Reports: Allergic Rhinitis, Cataract, Impaired Vision Other HEENT History: wears glasses, has no teeth- no dentures Cardiovascular History: Reports: High Cholesterol, Hypertension Respiratory History: Reports: Asthma. Denies: COPD Other Respiratory History: denies COPD Gastrointestinal History: Reports: Colon Polyp, Diverticulosis, GERD, Hiatal Hernia. Denies: Cirrhosis Genitourinary History: Reports: None. 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 Was taking it for ten years Oncologic (Cancer) History: Reports: None Dermatologic History: Reports: Other (See Below) Other Dermatologic History: debridement of right leg abscess - Infectious Disease History Infectious Disease History: Reports: MRSA Other Infectious Disease History: Right leg wound-healed - Past Surgical History HEENT Surgical History: Reports: Cataract Surgery Cardiovascular Surgical History: Reports: None GI Surgical History: Reports: Colonoscopy, EGD Endocrine Surgical History: Reports: None Neurological Surgical History: Reports: None Musculoskeletal Surgical History: Reports: ORIF, Other (See Below) Other Musculoskeletal Surgeries/Procedures:: I&D R calf, ORIF right leg- hardware removed Social & Family History - Family History Family Medical History: No Pertinent Family History - Caffeine Use Caffeine Use: Reports: None - Living Situation & Occupation Living situation: Reports: Single ED ROS GENERAL - Review of Systems Review Of Systems: Comprehensive ROS is negative, except as noted in HPI. ED EXAM, GENERAL - Physical Exam Exam: See Below (See dictation) Course - Vital Signs Last Recorded V/S: Last Vital Signs Temp 98.7 F 09/07/20 14:08 Pulse 128 H 09/07/20 14:08 Resp 26 H 09/07/20 14:08 BP 151/88 H 09/07/20 14:08 Pulse Ox 95 09/07/20 14:08 - Orders/Labs/Meds Orders: Active Orders 24 hr Category Date Time Status RT Aerosol Therapy [RC] ASDIRECTED Care 09/07/20 14:07 Active RT Aerosol Therapy [RC] ASDIRECTED Care 09/07/20 14:25 Active Chest 1V Frontal [CR] Stat Exams 09/07/20 14:07 Taken Meds: Medications Discontinued Medications Generic Name Dose Route Start Last Admin Trade Name Freq PRN Reason Stop Dose Admin Albuterol/Ipratropium 6 ml 09/07/20 14:07 09/07/20 14:16 Duoneb 3.0-0.5 Mg/3 Ml NEB 09/07/20 14:08 6 ml ONETIME ONE Administration Albuterol/Ipratropium 3 ml 09/07/20 14:25 09/07/20 14:31 Duoneb 3.0-0.5 Mg/3 Ml NEB 09/07/20 14:26 3 ml ONETIME ONE Administration Methylprednisolone Sodium Succinate 125 mg 09/07/20 14:07 09/07/20 14:19 Solu-Medrol IM 09/07/20 14:08 125 mg ONETIME ONE Administration Departure - Departure Time of Disposition: 15:20 Disposition: Home, Self-Care 01 Clinical Impression: Asthma exacerbation Qualifiers: Asthma severity: mild Asthma persistence: unspecified Qualified Code(s): J45.901 - Unspecified asthma with (acute) exacerbation - Discharge Information Prescriptions: Albuterol/Ipratropium [DuoNeb 3.0-0.5 MG/3 ML] 1 ampule INH Q4HR PRN #1 box PRN Reason: Dyspnea predniSONE [Prednisone] 40 mg PO DAILY 5 Days #10 tablet Instructions: Asthma Attack Referrals: PCP,None [Primary Care Provider] - Additional Instructions: The following information is given to patients seen in the emergency department who are being discharged to home. This information is to outline your options for follow-up care. We provide all patients seen in our emergency department with a follow-up referral. The need for follow-up, as well as the timing and circumstances, are variable depending upon the specifics of your emergency department visit. If you don't have a primary care physician on staff, we will provide you with a referral. We always advise you to contact your personal physician following an emergency department visit to inform them of the circumstance of the visit and for follow-up with them and/or the need for any referrals to a consulting specialist. The emergency department will also refer you to a specialist when appropriate. This referral assures that you have the opportunity for follow-up care with a specialist. All of these measure are taken in an effort to provide you with optimal care, which includes your follow-up. Under all circumstances we always encourage you to contact your private physician who remains a resource for coordinating your care. When calling for follow-up care, please make the office aware that this follow-up is from your recent emergency room visit. If for any reason you are refused follow-up, please contact the [facility] at and asked to speak to the emergency department charge nurse. [facility] [address] [place] [address] [facility] [address] [place] [address] Thank you for choosing the [facility] emergency department in [place] for your medical needs today. It was a pleasure caring for you. Today you were seen in the emergency department for asthma exacerbation 1. Today your chest x-ray was within normal limits (no pneumonia). Please take the inhaler and steroid as directed.. 2. Use the Nebulizer machine/medication as needed. 3. We encourage you to follow up with your primary care provider and/or recommended specialist in the next few days for re-evaluation and further care/management. If your symptoms should worsen, new symptoms develop or any of the signs and symptoms we discussed should arise please return to the emergency room or call 911 (if needed). Sepsis Event Note (ED) - Evaluation Sepsis Screening Result: No Definite Risk - Focused Exam Vital Signs: Vital Signs Temp Pulse Resp BP Pulse Ox 09/07/20 14:08 98.7 F 128 H 26 H 151/88 H 95 - My Orders Last 24 Hours: My Active Orders 09/07/20 14:07 RT Aerosol Therapy [RC] ASDIRECTED Chest 1V Frontal [CR] Stat 09/07/20 14:25 RT Aerosol Therapy [RC] ASDIRECTED - Assessment/Plan Last 24 Hours: My Active Orders 09/07/20 14:07 RT Aerosol Therapy [RC] ASDIRECTED Chest 1V Frontal [CR] Stat 09/07/20 14:25 RT Aerosol Therapy [RC] ASDIRECTED
--- NOTE | 2020-09-07 15:20 | CR ---
Indication: Pain and shortness of breath Comparison: Single view chest April 30, 2020 Technique: Single AP view chest Findings: There is hyperinflation and chronic interstitial change. There is no focal consolidation, effusion, or pneumothorax. The cardiomediastinal silhouette is within normal limits. The bony thorax is grossly intact. Impression: Hyperinflation and chronic interstitial change without dense consolidation or effusion. Dictated by Shantanu Simon MD @ Sep 07 2020 3:12PM Signed by Dr. Shantanu Simon @ Sep 07 2020 3:18PM
[2020-09-07 15:40] VITALS: BP 147/92; PULSE 123
== END 2020-09-07 15:29 | disposition home or self-care (01) ==
LOC: MW.ED 14:06
DX: J45.901 Unspecified asthma with (acute) exacerbation (principal); I10 Essential (primary) hypertension; K21.9 Gastro-esophageal reflux disease without esophagitis; E78.00 Pure hypercholesterolemia, unspecified; E11.40 Type 2 diabetes mellitus with diabetic neuropathy, unspecified; E66.9 Obesity, unspecified; Z68.28 Body mass index [BMI] 28.0-28.9, adult; Z88.5 Allergy status to narcotic agent; Z88.8 Allergy status to other drugs, medicaments and biological substances; Z79.899 Other long term (current) drug therapy
CPT/HCPCS: 71045; 94640; 96372; 99285; J2930; 99284; J7620-GY

== ENCOUNTER 2020-12-28 11:58 | Emergency (ER) | payer MEDICAID ==
[2020-12-28 12:05] VITALS: BP 113/67
[2020-12-28] MEDS ORDERED: methylPREDNISolone Sodium Succinate 125 MG/2 ML SDV IM ONE (12:12)
[2020-12-28] MEDS ORDERED: Albuterol/Ipratropium 3.0-0.5 MG/3 ML Neb Soln NEB ONE (12:12)
--- NOTE | 2020-12-28 12:31 | EDM.PDOC ---
ED HPI GENERAL MEDICAL PROBLEM - General Chief Complaint: Respiratory Problem Stated Complaint: SOB Time Seen by Provider: 12/28/20 12:10 Source of Information: Reports: Patient History Limitations: Reports: No Limitations - History of Present Illness INITIAL COMMENTS - FREE TEXT/NARRATIVE: HISTORY AND PHYSICAL: History of present illness: Patient is a 60-year-old male who presents to the emergency room with complaints of increased shortness of breath. Patient does have a history of asthma and states he has been taking his rescue inhaler along with nebulizer, last took bot h at 9 AM this morning. States he did not have much improvement after treatment. Patient denies any fever, chills, headache, change in vision, syncope or near syncope. Denies any chest pain, back pain, hemoptysis or cough. Denies any abdominal pain, nausea, vomiting, diarrhea, constipation or dysuria. Has not noted any blood in urine or stool. Patient has been eating and drinking appropriately. Patient states he has not had COVID-19 nor the vaccines for this. Review of systems: As per history of present illness and below otherwise all systems reviewed and negative. Past medical history: As per history of present illness and as reviewed below otherwise noncontributory. Surgical history: As per history of present illness and as reviewed below otherwise noncontributory. Social history: See social history for further information Family history: As per history of present illness and as reviewed below otherwise noncontributory. Physical exam: General: Well developed and well nourished 60 year old male. Alert and orientated x 3. Nontoxic in appearance and in no acute distress. Vital signs are stable and have been reviewed by me. Nursing notes were reviewed. HEENT: Atraumatic, normocephalic, pupils equal and reactive bilaterally, negative for conjunctival pallor or scleral icterus, mucous membranes moist, TMs normal bilaterally, throat clear, neck supple, nontender, trachea midline. No drooling or trismus noted. No meningeal signs. No hot potato voice noted. Lungs: Diminished throughout with fine expiratory wheezing bilaterally. No rales, or rhonchi. Chest nontender. Normal work of breathing, no accessory muscles used. Heart: S1S2, regular rate and rhythm without overt murmur, gallops, or rubs. No JVD. No peripheral edema Abdomen: Soft, nondistended, nontender. Normoactive bowel sounds. Negative for masses or costovertebral tenderness. Pelvis: Stable nontender. Genitourinary/Rectal: Deferred. Skin: Intact, warm, dry. No lesions or rashes noted. Hematologic: No petechiae or purpra. Mucosa appropriate color and normal nail bed color and refill. Extremities: Atraumatic, moves all extremities per self without difficulty or deficits, negative for cords or calf pain. Neurovascular unremarkable. Neuro: Awake, alert, oriented. Cranial nerves II through XII unremarkable. Cerebellum unremarkable. Motor and sensory unremarkable throughout. Exam nonfocal. Psychiatric: Mood and affect are appropriate. Normal thought process. Answering questions appropriately. Notes: *This patient was seen and evaluated during the 2019 SARS-CoV-2 novel coronavirus pandemic period. Community viral transmission is ongoing at time of this encounter and the emergency department is operating under pandemic response procedures. Chest x-ray shows no acute findings. Due to patient's significant lung history I will put him on azithromycin and prednisone. Lung sounds have improved after the DuoNeb. Oxygen is between 93 and 94% on room air. I have talked with the patient about today's findings, in addition to providing specific details for plan of care. Reassessment at the time of disposition demonstrates that the patient is in no acute distress. The patient is stable for discharge, counseling was provided and we discussed in great detail signs and symptoms that would prompt them to return to the Emergency Department. Medication, follow up and supportive care measures were reviewed and discussed. Voices understanding and is agreeable to plan of care. Denies any further questions or concerns at this time. Diagnostics: COVID 19, chest x-ray Therapeutics: Duo Neb, Solu-Medrol Prescription: Prednisone Impression: Asthma exacerbation Plan: 1. You were evaluated today on an emergent basis. Your x-ray shows no concern for pneumonia. Please take the medications as directed. 2. You can alternate Tylenol and ibuprofen as needed for pain and fever management. 3. We encourage you to follow up with your primary care provider and/or recommended specialist in the next few days for re-evaluation and further care/management. 4. If your symptoms should worsen, new symptoms develop or any of the signs and symptoms we discussed should arise please return to the emergency room or call 911 (if needed). Definitive disposition and diagnosis as appropriate pending reevaluation and review of above. - Related Data Allergies Allergy/AdvReac Type Severity Reaction Status Date / Time hydrocodone Allergy Hives Verified 12/28/20 12:02 ketorolac [From Toradol] Allergy Cannot Verified 12/28/20 12:02 Remember sucralfate [From Carafate] Allergy Hives Verified 12/28/20 12:02 tamsulosin Allergy Other Verified 12/28/20 12:02 theophylline Allergy Cannot Verified 12/28/20 12:02 Remember tramadol Allergy Hives Verified 12/28/20 12:02 Home Meds: Home Meds Fluticasone/Salmeterol [Advair 500-50] 1 puff INH BID 12/30/14 [History] Lisinopril 10 mg PO DAILY 12/30/14 [History] Testosterone Cypionate 200 mg IM Q14D 12/30/14 [History] amLODIPine [Norvasc] 10 mg PO DAILY 12/30/14 [History] atorvaSTATin [Lipitor] 20 mg PO BEDTIME 12/30/14 [History] Montelukast [Singulair] 10 mg PO BEDTIME 10/07/15 [History] Omeprazole 40 mg PO ACBREAKFAST 06/16/16 [History] Pregabalin [Lyrica] 50 mg PO BID 06/16/16 [History] risperiDONE 1.5 mg PO DAILY 06/16/16 [History] risperiDONE 2 mg PO BEDTIME 06/16/16 [History] sitaGLIPtin Phos/Metformin HCl [Janumet Xr 50-1,000 mg Tablet] 2 tab PO WITHDINNER 06/16/16 [History] Benztropine Mesylate 0.25 mg PO BID 06/18/18 [History] traZODone HCl [Trazodone HCl] 100 mg PO BEDTIME 06/18/18 [History] Metoprolol Succinate 50 mg PO BEDTIME 03/08/20 [History] Levalbuterol Tartrate [Xopenex Hfa] 2 puff INH BID PRN 04/10/20 [History] predniSONE [Prednisone] 2.5 mg PO DAILY 04/10/20 [History] predniSONE [Prednisone] 40 mg PO DAILY 4 Days #8 tablet 05/01/20 [Rx] Albuterol/Ipratropium [DuoNeb 3.0-0.5 MG/3 ML] 1 ampule INH Q4HR PRN #1 box 09/07/20 [Rx] predniSONE [Prednisone] 40 mg PO DAILY 5 Days #10 tablet 09/07/20 [Rx] Azithromycin [Zithromax] 1 dose PO DAILY 5 Days #6 tab 12/28/20 [Rx] predniSONE [Prednisone] 40 mg PO DAILY 4 Days #8 tablet 12/28/20 [Rx] Past Medical History HEENT History: Reports: Allergic Rhinitis, Cataract, Impaired Vision Other HEENT History: wears glasses, has no teeth- no dentures Cardiovascular History: Reports: High Cholesterol, Hypertension Respiratory History: Reports: Asthma Other Respiratory History: denies COPD Gastrointestinal History: Reports: Colon Polyp, Diverticulosis, GERD, Hiatal Hernia Genitourinary History: Reports: None Musculoskeletal History: Reports: Fracture, Osteoarthritis, Osteoporosis Other Musculoskeletal History: hx of fx leg Neurological History: Reports: Neuropathy, Diabetic, Other (See Below) Other Neuro History: 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 Was taking it for ten years Oncologic (Cancer) History: Reports: None Dermatologic History: Reports: Other (See Below) Other Dermatologic History: debridement of right leg abscess - Infectious Disease History Infectious Disease History: Reports: MRSA Other Infectious Disease History: Right leg wound-healed - Past Surgical History Head Surgeries/Procedures: Reports: None HEENT Surgical History: Reports: Cataract Surgery Cardiovascular Surgical History: Reports: None Respiratory Surgical History: Reports: None GI Surgical History: Reports: Colonoscopy, EGD Endocrine Surgical History: Reports: None Neurological Surgical History: Reports: None Musculoskeletal Surgical History: Reports: ORIF, Other (See Below) Other Musculoskeletal Surgeries/Procedures:: I&D R calf, ORIF right leg- hardware removed Dermatological Surgical History: Reports: None Social & Family History - Family History Family Medical History: No Pertinent Family History - Tobacco Use Tobacco Use Status *Q: Former Tobacco User Used Tobacco, but Quit: Yes Month/Year Tobacco Last Used: 1998 - Caffeine Use Caffeine Use: Reports: Soda - Recreational Drug Use Recreational Drug Use: No - Living Situation & Occupation Living situation: Reports: Single ED ROS GENERAL - Review of Systems Review Of Systems: Comprehensive ROS is negative, except as noted in HPI. ED EXAM, GENERAL - Physical Exam Exam: See Below (See dictation) Course - Vital Signs Last Recorded V/S: Last Vital Signs Temp 97.8 F 12/28/20 12:03 Pulse 90 12/28/20 14:18 Resp 18 12/28/20 14:18 BP 113/67 12/28/20 12:03 Pulse Ox 93 L 12/28/20 14:18 - Orders/Labs/Meds Orders: Active Orders 24 hr Category Date Time Status RT Aerosol Therapy [RC] ASDIRECTED Care 12/28/20 12:12 Active Labs: Laboratory Tests 12/28/20 Range/Units 13:04 SARS-CoV-2 RNA (MARCUS) NEGATIVE (NEGATIVE) Meds: Medications Discontinued Medications Generic Name Dose Route Start Last Admin Trade Name Freq PRN Reason Stop Dose Admin Albuterol/Ipratropium 3 ml 12/28/20 12:12 12/28/20 12:34 Albuterol/Ipratropium 3.0-0.5 Mg/3 Ml Neb Soln NEB 12/28/20 12:13 3 ml ONETIME ONE Administration Methylprednisolone Sodium Succinate 125 mg 12/28/20 12:12 12/28/20 12:34 Methylprednisolone Sodium Succinate 125 Mg/2 Ml Sdv IM 12/28/20 12:13 125 mg ONETIME ONE Administration Departure - Departure Time of Disposition: 14:32 Disposition: Home, Self-Care 01 Clinical Impression: Acute asthma exacerbation - Discharge Information Prescriptions: predniSONE [Prednisone] 40 mg PO DAILY 4 Days #8 tablet Azithromycin [Zithromax] 1 dose PO DAILY 5 Days #6 tab Instructions: Asthma, Adult, [id number] Referrals: Moe Clayton MD [Primary Care Provider] - Forms: ED Department Discharge Additional Instructions: The following information is given to patients seen in the emergency department who are being discharged to home. This information is to outline your options for follow-up care. We provide all patients seen in our emergency department with a follow-up referral. The need for follow-up, as well as the timing and circumstances, are variable depending upon the specifics of your emergency department visit. If you don't have a primary care physician on staff, we will provide you with a referral. We always advise you to contact your personal physician following an emergency department visit to inform them of the circumstance of the visit and for follow-up with them and/or the need for any referrals to a consulting specialist. The emergency department will also refer you to a specialist when appropriate. This referral assures that you have the opportunity for follow-up care with a specialist. All of these measure are taken in an effort to provide you with optimal care, which includes your follow-up. Under all circumstances we always encourage you to contact your private physician who remains a resource for coordinating your care. When calling for follow-up care, please make the office aware that this follow-up is from your recent emergency room visit. If for any reason you are refused follow-up, please contact the [facility] at and asked to speak to the emergency department charge nurse. [facility] [address] [place], [place] [id number] [place] [address] Thank you for choosing the [facility] emergency department in [place] for your medical needs today. It was a pleasure caring for you. Today you were seen in the emergency department for respiratory symptoms. 1. You were evaluated today on an emergent basis. Your x-ray shows no concern for pneumonia. Negative COVID. Please take the medications as directed. 2. You can alternate Tylenol and ibuprofen as needed for pain and fever management. 3. We encourage you to follow up with your primary care provider and/or recommended specialist in the next few days for re-evaluation and further care/management. 4. If your symptoms should worsen, new symptoms develop or any of the signs and symptoms we discussed should arise please return to the emergency room or call 911 (if needed). Sepsis Event Note (ED) - Evaluation Sepsis Screening Result: No Definite Risk - Focused Exam Vital Signs: Vital Signs Temp Pulse Resp BP Pulse Ox 12/28/20 14:18 90 18 93 L 12/28/20 12:03 97.8 F 104 H 22 H 113/67 90 L - My Orders Last 24 Hours: My Active Orders 12/28/20 12:12 RT Aerosol Therapy [RC] ASDIRECTED - Assessment/Plan Last 24 Hours: My Active Orders 12/28/20 12:12 RT Aerosol Therapy [RC] ASDIRECTED
--- NOTE | 2020-12-28 13:31 | CR ---
INDICATION: Chest pain and shortness of breath TECHNIQUE: Chest 2 views COMPARISON: September 07, 2020. FINDINGS: Cardiovascular and mediastinum: Heart size and vasculature are normal in caliber and appearance. Lungs and pleural spaces: Lungs are moderately hyperinflated with mild prominence of the lung interstitium. Lungs and pleural spaces otherwise clear. No pneumothorax. Bones and soft tissues: Moderate compression deformity of the T8 vertebral body of indeterminate age. IMPRESSION: No acute findings and no significant changes from the prior exam. Dictated by Brandon Callahan MD @ Dec 28 2020 1:26PM Signed by Dr. Brandon Callahan @ Dec 28 2020 1:31PM
[2020-12-28 14:18] VITALS: PULSE 90
== END 2020-12-28 14:40 | disposition home or self-care (01) ==
LOC: MW.ED 11:58
DX: J45.901 Unspecified asthma with (acute) exacerbation (principal); E78.00 Pure hypercholesterolemia, unspecified; I10 Essential (primary) hypertension; K21.9 Gastro-esophageal reflux disease without esophagitis; E11.40 Type 2 diabetes mellitus with diabetic neuropathy, unspecified; E66.9 Obesity, unspecified; Z68.27 Body mass index [BMI] 27.0-27.9, adult; Z87.891 Personal history of nicotine dependence; Z88.5 Allergy status to narcotic agent; Z88.8 Allergy status to other drugs, medicaments and biological substances; Z79.899 Other long term (current) drug therapy
CPT/HCPCS: 71046; 87635; 96372; 99285; J2930; 99283; J7620-GY; U0002

== ENCOUNTER 2021-03-10 06:51 | Emergency (ER) | payer MEDICAID ==
[2021-03-10] MEDS ORDERED: Albuterol/Ipratropium 3.0-0.5 MG/3 ML Neb Soln ONE (06:52)
[2021-03-10] MEDS ORDERED: Albuterol/Ipratropium 3.0-0.5 MG/3 ML Neb Soln NEB ONE ×2 (07:01→07:22)
[2021-03-10] MEDS ORDERED: Dexamethasone 10 MG/ML SDV IVPUSH ONE (07:22)
[2021-03-10] MEDS ORDERED: Magnesium Sulfate (4.06 MEQ/ML) 5 GM/10 ML SDV IV STA (07:22)
--- NOTE | 2021-03-10 07:26 | EDM.PDOC ---
ED HPI GENERAL MEDICAL PROBLEM - General Chief Complaint: Respiratory Problem Stated Complaint: CHEST PAIN Time Seen by Provider: 03/10/21 07:16 Source of Information: Reports: Patient History Limitations: Reports: No Limitations - History of Present Illness INITIAL COMMENTS - FREE TEXT/NARRATIVE: Patient is a 61-year-old male with a history of asthma presents today for shortness of breath. Patient states the he occasionally has these asthma attacks every 2 months and his doctor gave him a prednisone prescription to take at home and is gets worse. Patient denies taking the prednisone today. Patient reports a cough that has been productive. Patient denies any fevers or chills lower leg swelling recent travels chest pain ramiro pain nausea vomiting or other complaints. - Related Data Allergies Allergy/AdvReac Type Severity Reaction Status Date / Time hydrocodone Allergy Hives Verified 03/10/21 06:56 ketorolac [From Toradol] Allergy Cannot Verified 03/10/21 06:56 Remember sucralfate [From Carafate] Allergy Hives Verified 03/10/21 06:56 tamsulosin Allergy Other Verified 03/10/21 06:56 theophylline Allergy Cannot Verified 03/10/21 06:56 Remember tramadol Allergy Hives Verified 03/10/21 06:56 Home Meds: Home Meds Fluticasone/Salmeterol [Advair 500-50] 1 puff INH BID 12/30/14 [History] Lisinopril 10 mg PO DAILY 12/30/14 [History] Testosterone Cypionate 200 mg IM Q14D 12/30/14 [History] amLODIPine [Norvasc] 10 mg PO DAILY 12/30/14 [History] atorvaSTATin [Lipitor] 20 mg PO BEDTIME 12/30/14 [History] Montelukast [Singulair] 10 mg PO BEDTIME 10/07/15 [History] Omeprazole 40 mg PO ACBREAKFAST 06/16/16 [History] Pregabalin [Lyrica] 50 mg PO BID 06/16/16 [History] risperiDONE 1.5 mg PO DAILY 06/16/16 [History] risperiDONE 2 mg PO BEDTIME 06/16/16 [History] sitaGLIPtin Phos/Metformin HCl [Janumet Xr 50-1,000 mg Tablet] 2 tab PO WITHDINNER 06/16/16 [History] Benztropine Mesylate 0.25 mg PO BID 06/18/18 [History] traZODone HCl [Trazodone HCl] 100 mg PO BEDTIME 06/18/18 [History] Metoprolol Succinate 50 mg PO BEDTIME 03/08/20 [History] Levalbuterol Tartrate [Xopenex Hfa] 2 puff INH BID PRN 04/10/20 [History] predniSONE [Prednisone] 2.5 mg PO DAILY 04/10/20 [History] predniSONE [Prednisone] 40 mg PO DAILY 4 Days #8 tablet 05/01/20 [Rx] Albuterol/Ipratropium [DuoNeb 3.0-0.5 MG/3 ML] 1 ampule INH Q4HR PRN #1 box 09/07/20 [Rx] predniSONE [Prednisone] 40 mg PO DAILY 5 Days #10 tablet 09/07/20 [Rx] Azithromycin [Zithromax] 1 dose PO DAILY 5 Days #6 tab 12/28/20 [Rx] predniSONE [Prednisone] 40 mg PO DAILY 4 Days #8 tablet 12/28/20 [Rx] Past Medical History HEENT History: Reports: Allergic Rhinitis, Cataract, Impaired Vision Other HEENT History: wears glasses, has no teeth- no dentures Cardiovascular History: Reports: High Cholesterol, Hypertension Respiratory History: Reports: Asthma Other Respiratory History: denies COPD Gastrointestinal History: Reports: Colon Polyp, Diverticulosis, GERD, Hiatal Hernia Genitourinary History: Reports: None Musculoskeletal History: Reports: Fracture, Osteoarthritis, Osteoporosis Other Musculoskeletal History: hx of fx leg Neurological History: Reports: Neuropathy, Diabetic Other Neuro History: 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 Was taking it for ten years Oncologic (Cancer) History: Reports: None Dermatologic History: Reports: Other (See Below) Other Dermatologic History: Abscess - Infectious Disease History Infectious Disease History: Reports: MRSA Other Infectious Disease History: Right leg wound-healed - Past Surgical History Head Surgeries/Procedures: Reports: None HEENT Surgical History: Reports: Cataract Surgery Cardiovascular Surgical History: Reports: None Respiratory Surgical History: Reports: None GI Surgical History: Reports: Colonoscopy, EGD Endocrine Surgical History: Reports: None Neurological Surgical History: Reports: None Musculoskeletal Surgical History: Reports: ORIF, Other (See Below) Dermatological Surgical History: Reports: None Social & Family History - Family History Family Medical History: No Pertinent Family History - Caffeine Use Caffeine Use: Reports: None - Recreational Drug Use Recreational Drug Use: No - Living Situation & Occupation Living situation: Reports: Single ED ROS GENERAL - Review of Systems Review Of Systems: See Below Constitutional: Reports: No Symptoms HEENT: Reports: No Symptoms Respiratory: Reports: Shortness of Breath Cardiovascular: Reports: No Symptoms Endocrine: Reports: No Symptoms GI/Abdominal: Reports: No Symptoms : Reports: No Symptoms Musculoskeletal: Reports: No Symptoms Skin: Reports: No Symptoms Neurological: Reports: No Symptoms Psychiatric: Reports: No Symptoms Hematologic/Lymphatic: Reports: No Symptoms Immunologic: Reports: No Symptoms ED EXAM, GENERAL - Physical Exam Exam: See Below Exam Limited By: No Limitations General Appearance: Alert, WD/WN, No Apparent Distress Respiratory/Chest: No Respiratory Distress, Wheezing Cardiovascular: Normal Peripheral Pulses, Regular Rate, Rhythm GI/Abdominal: Normal Bowel Sounds, Soft, Non-Tender Extremities: Normal Inspection, No Pedal Edema Neurological: Alert, Oriented Course - Vital Signs Last Recorded V/S: Last Vital Signs Temp 98.3 F 03/10/21 06:55 Pulse 80 03/10/21 07:52 Resp 18 03/10/21 07:52 BP 104/66 03/10/21 07:52 Pulse Ox 98 03/10/21 07:52 - Orders/Labs/Meds Orders: Active Orders 24 hr Category Date Time Status RT Aerosol Therapy [RC] ASDIRECTED Care 03/10/21 07:01 Active RT Aerosol Therapy [RC] ASDIRECTED Care 03/10/21 07:23 Active Meds: Medications Discontinued Medications Generic Name Dose Route Start Last Admin Trade Name Freq PRN Reason Stop Dose Admin Albuterol/Ipratropium Confirm 03/10/21 06:52 03/10/21 07:02 Albuterol/Ipratropium 3.0-0.5 Mg/3 Ml Neb Soln Administered 03/10/21 06:53 Not Given Dose 3 ml .ROUTE .STK-MED ONE Albuterol/Ipratropium 3 ml 03/10/21 07:01 03/10/21 06:55 Albuterol/Ipratropium 3.0-0.5 Mg/3 Ml Neb Soln NEB 03/10/21 07:02 3 ml ONETIME ONE Administration Albuterol/Ipratropium 3 ml 03/10/21 07:22 03/10/21 07:36 Albuterol/Ipratropium 3.0-0.5 Mg/3 Ml Neb Soln NEB 03/10/21 07:23 3 ml ONETIME ONE Administration Dexamethasone 10 mg 03/10/21 07:22 03/10/21 07:36 Dexamethasone 10 Mg/Ml Sdv IVPUSH 03/10/21 07:23 10 mg ONETIME ONE Administration Magnesium Sulfate 1 gm in 25 mls @ 50 mls/hr 03/10/21 07:30 03/10/21 07:36 Magnesium Sulfate In Water 2 Gm/50 Ml IV 03/10/21 07:59 50 mls/hr ONETIME ONE Administration - Re-Assessments/Exams Free Text/Narrative Re-Assessment/Exam: 03/10/21 08:06 Patient was given magnesium 2 doses of albuterol ipratropium nebs and now has really good air movement. Patient is sleepy satting 95% on room air when patient wakes up patient oxygen level goes closer to 98% room air. Patient has steroids already at home continue to take those and will be discharged home. Departure - Departure Time of Disposition: 08:06 Disposition: Home, Self-Care 01 Condition: Good Clinical Impression: Asthma Qualifiers: Asthma severity: mild persistent - Discharge Information *PRESCRIPTION DRUG MONITORING PROGRAM REVIEWED*: Not Applicable *COPY OF PRESCRIPTION DRUG MONITORING REPORT IN PATIENT LUCIA: Not Applicable Instructions: Asthma, Adult Referrals: PCP,None [Primary Care Provider] - Forms: ED Department Discharge Additional Instructions: The following information is given to patients seen in the emergency department who are being discharged to home. This information is to outline your options for follow-up care. We provide all patients seen in our emergency department with a follow-up referral. The need for follow-up, as well as the timing and circumstances, are variable depending upon the specifics of your emergency department visit. If you don't have a primary care physician on staff, we will provide you with a referral. We always advise you to contact your personal physician following an emergency department visit to inform them of the circumstance of the visit and for follow-up with them and/or the need for any referrals to a consulting specialist. The emergency department will also refer you to a specialist when appropriate. This referral assures that you have the opportunity for follow-up care with a specialist. All of these measure are taken in an effort to provide you with optimal care, which includes your follow-up. Under all circumstances we always encourage you to contact your private physician who remains a resource for coordinating your care. When calling for follow-up care, please make the office aware that this follow-up is from your recent emergency room visit. If for any reason you are refused follow-up, please contact the [facility] Emergency Department at and asked to speak to the emergency department charge nurse. Please follow up with your primary care physician. If you do not have a primary care physician, see below: [facility] [address] [place] [id number] My [facility] [address] [place] [address] You are seen today for asthma. We you were given nebulizers and steroids as well as magnesium to help with your breathing. Upon discharge he states that you are feeling a lot better and breathing clear. You also have steroids at home already from your primary care physician to recommend you take. If you have any increased symptoms please return to the ED. Critical Care Note - Critical Care Note Total Time (mins): 45 Comments: Critical Care Procedure Note Authorized and Performed by: Dr. Moya Total critical care time: Approximately Due to a high probability of clinically significant, life threatening deterioration, the patient required my highest level of preparedness to intervene emergently and I personally spent this critical care time directly and personally managing the patient. This critical care time included obtaining a history; examining the patient; pulse oximetry; ordering and review of studies; arranging urgent treatment with development of a management plan; evaluation of patient's response to treatment; frequent reassessment; and, discussions with other providers. This critical care time was performed to assess and manage the high probability of imminent, life-threatening deterioration that could result in multi-organ failure. It was exclusive of separately billable procedures and treating other patients and teaching time. Sepsis Event Note (ED) - Evaluation Sepsis Screening Result: No Definite Risk - Focused Exam Vital Signs: Vital Signs Temp Pulse Resp BP Pulse Ox 03/10/21 07:52 80 18 104/66 98 03/10/21 06:55 98.3 F 82 24 H 124/69 95 - My Orders Last 24 Hours: My Active Orders 03/10/21 07:01 RT Aerosol Therapy [RC] ASDIRECTED 03/10/21 07:23 RT Aerosol Therapy [RC] ASDIRECTED - Assessment/Plan Last 24 Hours: My Active Orders 03/10/21 07:01 RT Aerosol Therapy [RC] ASDIRECTED 03/10/21 07:23 RT Aerosol Therapy [RC] ASDIRECTED Plan: Patient is a 61-year-old male who presents today for shortness of breath and wheezing. Patient has multiple visit occasionally has this respiratory issues every 2 months. Will give patient albuterol steroids magnesium and reassess.
[2021-03-10] MEDS ORDERED: Magnesium Sulfate/Water 1 GM/25 ML BAG IV ONE (07:30)
[2021-03-10 08:33] VITALS: BP 106/81; PULSE 81
== END 2021-03-10 08:33 | disposition home or self-care (01) ==
LOC: MW.ED 06:51
DX: J45.30 Mild persistent asthma, uncomplicated (principal); E78.00 Pure hypercholesterolemia, unspecified; I10 Essential (primary) hypertension; J45.909 Unspecified asthma, uncomplicated; K21.9 Gastro-esophageal reflux disease without esophagitis; E66.9 Obesity, unspecified; E11.40 Type 2 diabetes mellitus with diabetic neuropathy, unspecified; Z79.899 Other long term (current) drug therapy; Z88.5 Allergy status to narcotic agent; Z88.6 Allergy status to analgesic agent; Z88.8 Allergy status to other drugs, medicaments and biological substances
CPT/HCPCS: 96365; 96375; 99284; J1100; J3475; J7620-GY

== ENCOUNTER 2021-04-11 15:50 | Emergency (ER) | payer MEDICAID ==
[2021-04-11] MEDS ORDERED: Morphine 4 MG/ML Syringe IVPUSH ONE (16:28)
[2021-04-11] MEDS ORDERED: Albuterol/Ipratropium 3.0-0.5 MG/3 ML Neb Soln NEB ONE (16:30)
[2021-04-11 16:55] LABS: ACETAMINOPHEN <2.0 ug/mL; BLOOD UREA NITROGEN,BUN 20 mg/dL (7.0-18.0); CARBON DIOXIDE,CO2 26.2 mmol/L (21.0-32.0); CHLORIDE,CL 101 mmol/L (98-107); GLUCOSE RANDOM 143 mg/dL (74-106); LIPASE 195 U/L (73-393); POTASSIUM,K 3.8 mmol/L (3.5-5.1); SODIUM,NA 136 mmol/L (136-148)
[2021-04-11] MEDS ORDERED: Magnesium Sulfate/Water 2 GM in Premix Bag 1 BAG IV ONE (16:59)
--- NOTE | 2021-04-11 17:09 | PCM.EKG ---
#1 Interpretation EKG Date: 04/11/21 Time: 16:42 Rhythm: NSR Rate (Beats/Min): 101 [place]: LAD-Left Lenox Deviation P-Wave: Present QRS: Normal ST-T: Normal QT: Normal Comparison: No Change (05/01/20) EKG Interpretation Comments: Sinus Rhythm with LAD
[2021-04-11] MEDS ORDERED: Iopamidol 755 MG/ML 500 ML Multipack Bottle IVPUSH ONE (17:19)
--- NOTE | 2021-04-11 17:59 | EDM.PDOC ---
ED HPI GENERAL MEDICAL PROBLEM - General Chief Complaint: Abdominal Pain Stated Complaint: STOMACH PAIN Time Seen by Provider: 04/11/21 15:57 - History of Present Illness INITIAL COMMENTS - FREE TEXT/NARRATIVE: CHIEF COMPLAINT(S): "Abdominal pain." HISTORY OF PRESENT ILLNESS: This is a 61-year-old man with a past medical history of asthma, schizophrenia, hypertension, diabetes mellitus who comes to the emergency department with a chief complaint of "abdominal pain." The patient states that for approximately 1 week now he has been experiencing abdominal pain "right here." He points to his whole abdomen. He describes the pain as achy and crampy which he rates as 6 out of 10. He denies any radiation of this pain. He states that the pain is worse with food. He states that he did have vomiting approximately 4 days ago which was the soda he drank but denies any vomiting since then. He has had decreased appetite but has been able to tolerate food since then. He denies any hematemesis, bilious emesis, melena or hematochezia. He denies any diarrhea or constipation. He states that the pain is just getting worse and it is not getting better. He has not yet tried any pain medications because he does not have any pain pills. He states that he only has Lyrica. He states that he does have diabetes but he has "too sick to check his sugars." He says that he was going to call the ambulance last night but did not. He states that he has never had pain like this before. He denies any excessive alcohol use. He denies any history of gastritis, peptic ulcer disease, pancreatitis. Denies any chest pain, shortness of breath, cough, fever or chills. REVIEW OF SYSTEMS: Constitutional: Denies fever, chills. Eyes: Denies eye pain Ears, Nose, Mouth, & Throat: Denies earache, runny nose, Cardiovascular: Denies chest pain Respiratory: Denies shortness of breath Gastrointestinal: Positive for abdominal pain, vomiting. Denies nausea, diarrhea, medic easier, hematemesis, bilious emesis, melena. Genitourinary: Denies hematuria dysuria Skin:Denies a rash MSK: Denies joint pain, back pain Neurological: Denies blurred vision Psychiatric: Denies depression PAST MEDICAL HISTORY: As per history of present illness and as reviewed below otherwise noncontributory. SURGICAL HISTORY: As per history of present illness and as reviewed below otherwise noncontributory. SOCIAL HISTORY: As per history of present illness and as reviewed below otherwise noncontributory. FAMILY HISTORY: As per history of present illness and as reviewed below otherwise noncontributory. EXAMINATION OF ORGAN SYSTEMS/BODY AREAS: Constitutional: Blood pressure was 137/80, heart rate 94, respiratory rate 18 with an oxygen saturation 93% on room air. Temperature 36.4 General: Middle-aged gentleman who is in a moderate amount of distress Psychiatric: Odd affect but is cooperative Eyes: No scleral icterus or conjunctival erythema ENMT: Moist mucous membranes. No pharyngeal erythema Cardiovascular: Regular, rate, and rhythm. No gallops, murmurs, or rubs. Bilateral upper extremity pulses symmetric and intact. No peripheral edema. No JVD. Respiratory: The patient is tachypneic but is speaking in full sentences. Saeid ateral expiratory wheezing bilaterally. No prolonged expiratory phase. No crackles. Gastrointestinal: Soft, minimal tenderness in the right upper quadrant and epigastric region. Nondistended. Normoactive bowel sounds negative Melton's and McBurney's. Genitourinary: No suprapubic tenderness no CVA tenderness. Musculoskeletal: Normal range of motion. Skin: No lesions or abrasions. Neurological: Alert, GCS 15 MEDICAL DECISION MAKING AND COURSE IN THE ED WITH INTERPRETATION/REVIEW OF DIAGNOSTIC STUDIES: This is a 61-year-old man with a past medical history of diabetes mellitus, hypertension, history of diverticulitis and schizophrenia who comes to the emergency department with 1 week of worsening epigastric/right upper quadrant pain associated with intermittent vomiting who is mildly hypoxic on room air who has bilateral expiratory wheezing. At this time differential includes pancreatitis, peptic ulcer disease, gastritis,, atypical ACS. Differential remains broad. Will obtain CBC, CMP, lipase, troponin, serum alcohol and Tylenol. Did obtain a [id number] glucose given the patient's history of diabetes which was 155. Will obtain a chest x-ray and abdomen pelvis CT with contrast. We did obtain an EKG which was an unchanged from prior. We will provide the patient with 4 mg of IV morphine for pain relief. Laboratory: CBC reveals a microcytic anemia with a hemoglobin of 12.5 and hematocrit of 40. This is decreased from prior 1 year ago which did not reveal any microcytosis with a hemoglobin of 14.4, hematocrit of 46.1 and MCV of 86.5. CMP reveals elevated BUN at 20, hyperglycemia at 143, hypomagnesemia at 1.7 and hypoalbuminemia at 2.6 otherwise unremarkable. Troponin is negative. Lipase is 195. Serum alcohol and Tylenol are negative. After labs I did provide the patient with magnesium supplementation. We are awaiting chest x-ray and CT abdomen pelvis with contrast. The radiological images were viewed by myself along with reading the report from the radiologist. Chest x-ray reveals left basilar atelectasis and a trace left pleural effusion otherwise no acute cardiopulmonary process. CT abdomen pelvis with contrast reveals a small left pleural effusion with a small hiatal hernia, left renal cyst and mild colonic diverticulosis otherwise unremarkable. On reevaluation, the patient reported pain improvement and was able to tolerate p.o. without any issues. I did discuss with him the lab results at this time. I also discussed the imaging results. I discussed that he needed to follow-up with his primary care physician for further evaluation and monitoring. I did recommend the use of Pepcid daily for the next 2 weeks or until he follows up with his primary care doctor. He is to return for any new or worsening symptoms. He was amenable discharge at this time and had no further questions. DISPOSITION: The patient was discharged home in stable condition. The patient will follow up with primary care physician in 3 to 5 days CONDITION: Fair PROCEDURES: None FINAL IMPRESSION(S)/DIAGNOSES: 1. Acute abdominal pain 2. Acute hypomagnesemia Alfredo Snider M.D. right upper abdomen Pain Score (Numeric/FACES): 6 - Related Data Allergies Allergy/AdvReac Type Severity Reaction Status Date / Time hydrocodone Allergy Hives Verified 04/11/21 16:28 ketorolac [From Toradol] Allergy Cannot Verified 04/11/21 16:28 Remember sucralfate [From Carafate] Allergy Hives Verified 04/11/21 16:28 tamsulosin Allergy Other Verified 04/11/21 16:28 theophylline Allergy Cannot Verified 04/11/21 16:28 Remember tramadol Allergy Hives Verified 04/11/21 16:28 Home Meds: Home Meds Fluticasone/Salmeterol [Advair 500-50] 1 puff INH BID 12/30/14 [History] Lisinopril 10 mg PO DAILY 12/30/14 [History] Testosterone Cypionate 200 mg IM Q14D 12/30/14 [History] amLODIPine [Norvasc] 10 mg PO DAILY 12/30/14 [History] atorvaSTATin [Lipitor] 20 mg PO BEDTIME 12/30/14 [History] Montelukast [Singulair] 10 mg PO BEDTIME 10/07/15 [History] Omeprazole 40 mg PO ACBREAKFAST 06/16/16 [History] Pregabalin [Lyrica] 50 mg PO BID 06/16/16 [History] risperiDONE 2 mg PO BEDTIME 06/16/16 [History] sitaGLIPtin Phos/Metformin HCl [Janumet Xr 50-1,000 mg Tablet] 2 tab PO WITHDINNER 06/16/16 [History] Benztropine Mesylate 0.25 mg PO BID 06/18/18 [History] traZODone HCl [Trazodone HCl] 100 mg PO BEDTIME 06/18/18 [History] Metoprolol Succinate 50 mg PO BEDTIME 03/08/20 [History] Levalbuterol Tartrate [Xopenex Hfa] 2 puff INH BID PRN 04/10/20 [History] Albuterol/Ipratropium [DuoNeb 3.0-0.5 MG/3 ML] 1 ampule INH Q4HR PRN #1 box 09/07/20 [Rx] Azithromycin [Zithromax] 1 dose PO DAILY 5 Days #6 tab 12/28/20 [Rx] predniSONE [Prednisone] 50 mg PO DAILY #4 tablet 03/10/21 [Rx] Past Medical History HEENT History: Reports: Allergic Rhinitis, Cataract, Impaired Vision Other HEENT History: wears glasses, has no teeth- no dentures Cardiovascular History: Reports: High Cholesterol, Hypertension Respiratory History: Reports: Asthma Other Respiratory History: denies COPD Gastrointestinal History: Reports: Colon Polyp, Diverticulosis, GERD, Hiatal Hernia Genitourinary History: Reports: None Musculoskeletal History: Reports: Fracture, Osteoarthritis, Osteoporosis Other Musculoskeletal History: hx of fx leg Neurological History: Reports: Neuropathy, Diabetic Other Neuro History: 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 Was taking it for ten years Oncologic (Cancer) History: Reports: None Dermatologic History: Reports: Other (See Below) Other Dermatologic History: Abscess - Infectious Disease History Infectious Disease History: Reports: MRSA Other Infectious Disease History: Right leg wound-healed - Past Surgical History Head Surgeries/Procedures: Reports: None HEENT Surgical History: Reports: Cataract Surgery Cardiovascular Surgical History: Reports: None Respiratory Surgical History: Reports: None GI Surgical History: Reports: Colonoscopy, EGD Endocrine Surgical History: Reports: None Neurological Surgical History: Reports: None Musculoskeletal Surgical History: Reports: ORIF, Other (See Below) Other Musculoskeletal Surgeries/Procedures:: I&D R calf, ORIF right leg- hardware removed Dermatological Surgical History: Reports: None Social & Family History - Family History Family Medical History: No Pertinent Family History - Tobacco Use Tobacco Use Status *Q: Never Tobacco User Second Hand Smoke Exposure: No - Caffeine Use Caffeine Use: Reports: None - Recreational Drug Use Recreational Drug Use: No - Living Situation & Occupation Living situation: Reports: Single ED ROS GENERAL - Review of Systems Review Of Systems: See Below ED EXAM, GENERAL - Physical Exam Exam: See Below Course - Vital Signs Last Recorded V/S: Last Vital Signs Temp 36.4 C 04/11/21 16:24 Pulse 93 04/11/21 18:59 Resp 18 04/11/21 16:24 BP 123/76 04/11/21 18:59 Pulse Ox 97 04/11/21 18:59 - Orders/Labs/Meds Labs: Laboratory Tests 04/11/21 04/11/21 04/11/21 Range/Units 16:25 16:25 16:27 WBC 7.62 (4.0-11.0) K/uL RBC 5.30 (4.50-5.90) M/uL Hgb 12.5 L (13.0-17.0) g/dL Hct 40.0 (38.0-50.0) % MCV 75.5 L (80.0-98.0) fL MCH 23.6 L (27.0-32.0) pg MCHC 31.3 (31.0-37.0) g/dL RDW Std Deviation 49.1 (28.0-62.0) fl RDW Coeff of Rober 18 H (11.0-15.0) % Plt Count 289 (150-400) K/uL MPV 10.30 (7.40-12.00) fL Neut % (Auto) 60.9 (48.0-80.0) % Lymph % (Auto) 22.7 (16.0-40.0) % [place] % (Auto) 12.9 (0.0-15.0) % Eos % (Auto) 3.0 (0.0-7.0) % Baso % (Auto) 0.5 (0.0-1.5) % Neut # (Auto) 4.6 (1.4-5.7) K/uL Lymph # (Auto) 1.7 (0.6-2.4) K/uL [place] # (Auto) 1.0 H (0.0-0.8) K/uL Eos # (Auto) 0.2 (0.0-0.7) K/uL Baso # (Auto) 0.0 (0.0-0.1) K/uL Nucleated RBC % 0.0 /100WBC Nucleated RBCs # 0 K/uL Sodium 136 (136-148) mmol/L Potassium 3.8 (3.5-5.1) mmol/L Chloride 101 (98-107) mmol/L Carbon Dioxide 26.2 (21.0-32.0) mmol/L BUN 20 H (7.0-18.0) mg/dL Creatinine 0.9 (0.8-1.3) mg/dL Est Cr Clr Drug Dosing 90.64 mL/min Estimated GFR (MDRD) > 60.0 ml/min Glucose 143 H (74-106) mg/dL POC Glucose 155 H (70-99) mg/dL Calcium 8.8 (8.5-10.1) mg/dL Magnesium 1.7 L (1.8-2.4) mg/dL Total Bilirubin 0.4 (0.2-1.0) mg/dL AST 11 L (15-37) IU/L ALT 15 (14-63) IU/L Alkaline Phosphatase 94 (46-116) U/L Troponin I < 0.050 (0.000-0.056) ng/mL Total Protein 6.9 (6.4-8.2) g/dL Albumin 2.6 L (3.4-5.0) g/dL Globulin 4.3 H (2.6-4.0) g/dL Albumin/Globulin Ratio 0.6 L (0.9-1.6) Lipase 195 (73-393) U/L Acetaminophen <2.0 ug/mL Ethyl Alcohol <3 mg/dL Meds: Medications Discontinued Medications Generic Name Dose Route Start Last Admin Trade Name [place] PRN Reason Stop Dose Admin Albuterol/Ipratropium 3 ml 04/11/21 16:30 04/11/21 16:35 Albuterol/Ipratropium 3.0-0.5 Mg/3 Ml Neb Soln NEB 04/11/21 16:31 3 ml ONETIME ONE Administration Magnesium Sulfate 2 gm/ Premix 50 mls @ 200 mls/hr 04/11/21 16:59 04/11/21 17:16 IV 04/11/21 17:13 200 mls/hr ONETIME ONE Administration Iopamidol 100 ml 04/11/21 17:19 04/11/21 17:19 Iopamidol 755 Mg/Ml 500 Ml Multipack Bottle IVPUSH 04/11/21 17:20 100 ml ONETIME ONE Administration Morphine Sulfate 4 mg 04/11/21 16:28 04/11/21 16:32 Morphine 4 Mg/Ml Syringe IVPUSH 04/11/21 16:29 4 mg ONETIME ONE Administration Departure - Departure Time of Disposition: 18:47 Disposition: Home, Self-Care 01 Condition: Fair Clinical Impression: Abdominal pain - Discharge Information *PRESCRIPTION DRUG MONITORING PROGRAM REVIEWED*: No *COPY OF PRESCRIPTION DRUG MONITORING REPORT IN PATIENT LUCIA: No Instructions: Abdominal Pain, Adult, [id number] Referrals: PCP,None [Primary Care Provider] - Moe Clayton MD [Ordering Only Provider] - Forms: ED Department Discharge Additional Instructions: You were evaluated today on an emergent basis. At this time all of your work-up was normal. I do recommend that you follow-up with Dr. Clayton. I do recommend that you take Pepcid once a day 20 mg in the evening until you follow-up with Dr. Clayton. If you have any worsening pain, chest pain, passing out, inability to tolerate any fluids or food I would like you to return to the emergency department. Follow-up with primary care physician in 3 to 5 days. The patient is informed of any results of their evaluation and diagnostic workup and all questions are answered. They are given discharge instructions and return precautions. The patient is stable for discharge. The patient states they u nderstand and agree with the plan and that they will return if their symptoms get worse or if they have any new concerns. The following information is given to patients seen in the emergency department who are being discharged to home. This information is to outline your options for follow-up care. We provide all patients seen in our emergency department with a follow-up referral. The need for follow-up, as well as the timing and circumstances, are variable depending upon the specifics of your emergency department visit. If you don't have a primary care physician on staff, we will provide you with a referral. We always advise you to contact your personal physician following an emergency department visit to inform them of the circumstance of the visit and for follow-up with them and/or the need for any referrals to a consulting specialist. The emergency department will also refer you to a specialist when appropriate. This referral assures that you have the opportunity for follow-up care with a specialist. All of these measure are taken in an effort to provide you with optimal care, which includes your follow-up. Under all circumstances we always encourage you to contact your private physician who remains a resource for coordinating your care. When calling for follow-up care, please make the office aware that this follow-up is from your recent emergency room visit. If for any reason you are refused follow-up, please contact the [facility] Emergency Department at and asked to speak to the emergency department charge nurse. Sepsis Event Note (ED) - Evaluation Sepsis Screening Result: No Definite Risk
--- NOTE | 2021-04-11 18:03 | CR ---
Indication: Shortness of breath. Technique: AP portable view of the chest. Comparison: December 28, 2020. Findings: The heart is normal in size. Left basilar atelectasis is identified. A trace left pleural effusions identified. The right lung is clear. No pneumothorax is identified. Impression: Left basilar atelectasis. Trace left pleural effusion Dictated by Hafsa Hinojosa MD @ 04/11/2021 6:02:[address] Hafsa Hinojosa @ Apr 11 2021 6:02PM
--- NOTE | 2021-04-11 18:20 | CT ---
Indication: Right upper quadrant/epigastric pain. Technique: Multiple contiguous axial images were obtained from the lung bases through the symphysis pubis after the intravenous administration of 100 milliliters Isovue 370. Please note that all CT scans at this facility use dose modulation, iterative reconstruction, and/or weight-based dosing when appropriate to reduce radiation dose to as low as reasonably achievable. Comparison: None Findings: A small left pleural effusion is identified. A small hiatal hernia is identified. The heart is normal in size. No pericardial effusions identified. The liver, gallbladder, spleen, pancreas, adrenals, and kidneys are normal. No intrahepatic biliary ductal dilatation is identified. No hydronephrosis is identified. Multiple left renal cysts are identified. The largest is in the superior pole and measures 5.1 x 3.8 cm in size. No hydronephrosis is identified. In the pelvis, the urinary bladder is normal. The small and large bowel are normal in caliber. Mild colonic diverticulosis is identified. There is no evidence of diverticulitis. The aorta is normal in caliber. No free air or free fluid is identified within the abdomen or pelvis. Mild aortic calcifications are identified. Degenerative changes of the spine are seen. No lytic or blastic lesions are identified. Mild dextroscoliosis is identified. Impression: Small hiatal hernia. Left renal cysts. Mild colonic diverticulosis. Please note that all CT scans at this facility use dose modulation, iterative reconstruction, and/or weight-based dosing when appropriate to reduce radiation dose to as low as reasonably achievable. Dictated by Hafsa Hinojosa MD @ 04/11/2021 6:19:[address] Hafsa Hinojosa @ Apr 11 2021 6:19PM
[2021-04-11 18:59] VITALS: BP 123/76
[2021-04-11 19:00] VITALS: PULSE 93
== END 2021-04-11 19:00 | disposition home or self-care (01) ==
LOC: MW.ED 15:50
DX: R10.11 Right upper quadrant pain (principal); R10.13 Epigastric pain; E83.42 Hypomagnesemia; I10 Essential (primary) hypertension; E78.00 Pure hypercholesterolemia, unspecified; J45.909 Unspecified asthma, uncomplicated; K21.9 Gastro-esophageal reflux disease without esophagitis; E11.40 Type 2 diabetes mellitus with diabetic neuropathy, unspecified; E66.9 Obesity, unspecified; Z68.30 Body mass index [BMI] 30.0-30.9, adult; Z88.5 Allergy status to narcotic agent; Z88.8 Allergy status to other drugs, medicaments and biological substances; Z79.899 Other long term (current) drug therapy
CPT/HCPCS: 36415; 71045; 74177; 80053; 80143; 80307; 82947; 83690; 83735; 84484; 85025; 93005; 96374; 96375; 99284; J2270; J3475; Q9967; J7620-GY

== ENCOUNTER 2021-04-22 15:10 | Emergency (ER) | payer MEDICAID ==
[2021-04-22] MEDS ORDERED: Sodium Chloride 0.9% 2.5 ML Syringe FLUSH PRN (15:11)
[2021-04-22] MEDS ORDERED: Sodium Chloride 0.9% 10 ML Syringe FLUSH PRN (15:11)
[2021-04-22] MEDS ORDERED: methylPREDNISolone Sodium Succinate 125 MG/2 ML SDV IVPUSH ONE (15:11)
[2021-04-22] MEDS ORDERED: Albuterol/Ipratropium 3.0-0.5 MG/3 ML Neb Soln NEB ONE ×2 (15:11→16:24)
[2021-04-22] MEDS ORDERED: Sodium Chloride 0.9% 1,000 ML IV ONE ×2 (15:11→16:24)
--- NOTE | 2021-04-22 15:23 | EDM.PDOC ---
ED HPI GENERAL MEDICAL PROBLEM - General Chief Complaint: Respiratory Problem Stated Complaint: ASTHMA/SOB Time Seen by Provider: 04/22/21 15:10 Source of Information: Reports: Patient History Limitations: Reports: No Limitations - History of Present Illness INITIAL COMMENTS - FREE TEXT/NARRATIVE: 61-year-old male past medical history asthma, schizophrenia, type 2 diabetes presents for shortness of breath. Patient is a very poor historian. States that he started to feel short of breath today and continued having shortness of breath despite using his inhaler. He denies productive cough, fevers, chest pain. - Related Data Allergies Allergy/AdvReac Type Severity Reaction Status Date / Time hydrocodone Allergy Hives Verified 04/22/21 15:33 ketorolac [From Toradol] Allergy Cannot Verified 04/22/21 15:33 Remember sucralfate [From Carafate] Allergy Hives Verified 04/22/21 15:33 tamsulosin Allergy Other Verified 04/22/21 15:33 theophylline Allergy Cannot Verified 04/22/21 15:33 Remember tramadol Allergy Hives Verified 04/22/21 15:33 Home Meds: Home Meds Fluticasone/Salmeterol [Advair 500-50] 1 puff INH BID 12/30/14 [History] Lisinopril 10 mg PO DAILY 12/30/14 [History] Testosterone Cypionate 200 mg IM Q14D 12/30/14 [History] amLODIPine [Norvasc] 10 mg PO DAILY 12/30/14 [History] atorvaSTATin [Lipitor] 20 mg PO BEDTIME 12/30/14 [History] Montelukast [Singulair] 10 mg PO BEDTIME 10/07/15 [History] Omeprazole 40 mg PO ACBREAKFAST 06/16/16 [History] Pregabalin [Lyrica] 50 mg PO BID 06/16/16 [History] risperiDONE 2 mg PO BEDTIME 06/16/16 [History] sitaGLIPtin Phos/Metformin HCl [Janumet Xr 50-1,000 mg Tablet] 2 tab PO WITHDINNER 06/16/16 [History] Benztropine Mesylate 0.25 mg PO BID 06/18/18 [History] traZODone HCl [Trazodone HCl] 100 mg PO BEDTIME 06/18/18 [History] Metoprolol Succinate 50 mg PO BEDTIME 03/08/20 [History] Levalbuterol Tartrate [Xopenex Hfa] 2 puff INH Q6H PRN 04/10/20 [History] Albuterol/Ipratropium [DuoNeb 3.0-0.5 MG/3 ML] 1 ampule INH Q4HR PRN #1 box 09/07/20 [Rx] Triamcinolone Acetonide [Triamcinolone Acetonide 0.1% Crm] 1 applic TOP BID 04/22/21 [History] predniSONE 40 mg PO DAILY 5 Days #10 tab 04/22/21 [Rx] predniSONE [Prednisone] 2.5 mg PO DAILY 04/22/21 [History] risperiDONE [Risperdal] 1.5 mg PO DAILY 04/22/21 [History] Past Medical History HEENT History: Reports: Allergic Rhinitis, Cataract, Impaired Vision Other HEENT History: wears glasses, has no teeth- no dentures Cardiovascular History: Reports: High Cholesterol, Hypertension Respiratory History: Reports: Asthma Other Respiratory History: denies COPD Gastrointestinal History: Reports: Colon Polyp, Diverticulosis, GERD, Hiatal Hernia Genitourinary History: Reports: None Musculoskeletal History: Reports: Fracture, Osteoarthritis, Osteoporosis Other Musculoskeletal History: hx of fx leg Neurological History: Reports: Neuropathy, Diabetic Other Neuro History: 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- takes Benztropine Psychiatric History: Reports: Bipolar Endocrine/Metabolic History: Reports: Diabetes, Type II, Obesity/BMI 30+, Osteoporosis 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 Was taking it for ten years Oncologic (Cancer) History: Reports: None Dermatologic History: Reports: Other (See Below) Other Dermatologic History: Abscess - Infectious Disease History Infectious Disease History: Reports: MRSA Other Infectious Disease History: Right leg wound-healed - Past Surgical History Head Surgeries/Procedures: Reports: None HEENT Surgical History: Reports: Cataract Surgery Cardiovascular Surgical History: Reports: None Respiratory Surgical History: Reports: None GI Surgical History: Reports: Colonoscopy, EGD Endocrine Surgical History: Reports: None Neurological Surgical History: Reports: None Musculoskeletal Surgical History: Reports: ORIF, Other (See Below) Other Musculoskeletal Surgeries/Procedures:: I&D R calf, ORIF right leg- hardware removed Dermatological Surgical History: Reports: None Social & Family History - Family History Family Medical History: No Pertinent Family History - Caffeine Use Caffeine Use: Reports: None - Living Situation & Occupation Living situation: Reports: Single ED ROS GENERAL - Review of Systems Review Of Systems: Comprehensive ROS is negative, except as noted in HPI. ED EXAM, GENERAL - Physical Exam Exam: See Below Exam Limited By: No Limitations General Appearance: Alert, WD/WN, No Apparent Distress Ears: Hearing Grossly Normal Throat/Mouth: Normal Voice, No Airway Compromise Head: Atraumatic, Normocephalic Neck: Normal Inspection Respiratory/Chest: Lungs Clear, Normal Breath Sounds, Other (tachpyneic, speaking short sentences, no wheezing on my exam) Cardiovascular: Normal Peripheral Pulses, Tachycardia Extremities: Normal Inspection Neurological: Alert, Normal Cognition, Normal Gait Psychiatric: Normal Affect, Normal Mood Skin Exam: Warm, Dry, Intact, Normal Color Course - Vital Signs Last Recorded V/S: Last Vital Signs Temp 97.0 F 04/22/21 15:10 Pulse 122 H 04/22/21 15:10 Resp 30 H 04/22/21 15:10 BP 95/63 04/22/21 15:10 Pulse Ox 95 04/22/21 15:10 - Orders/Labs/Meds Orders: Active Orders 24 hr Category Date Time Status EKG Documentation Completion [RC] STAT Care 04/22/21 15:11 Active Pulse Oximetry [RC] ASDIRECTED Care 04/22/21 15:12 Active B-TYPE NATRIURETIC PEPTIDE,BNP [CHEM] Stat Lab 04/22/21 15:12 Received Sodium Chloride 0.9% [Normal Saline] 1,000 ml Med 04/22/21 16:24 Active IV .Bolus Sodium Chloride 0.9% [Saline Flush] Med 04/22/21 15:11 Active 10 ml FLUSH ASDIRECTED PRN Sodium Chloride 0.9% [Saline Flush] Med 04/22/21 15:11 Active 2.5 ml FLUSH ASDIRECTED PRN Saline Lock Insert [OM.PC] Stat Oth 04/22/21 15:11 Ordered Medication Orders Sodium Chloride (Normal Saline) 1,000 mls @ 999 mls/hr IV .Bolus ONE Stop: 04/22/21 17:24 Sodium Chloride (Sodium Chloride 0.9% 10 Ml Syringe) 10 ml FLUSH ASDIRECTED PRN PRN Reason: Keep Vein Open Last Admin: 04/22/21 15:17 Dose: 10 ml Documented by: CHARAN Sodium Chloride (Sodium Chloride 0.9% 2.5 Ml Syringe) 2.5 ml FLUSH ASDIRECTED PRN PRN Reason: Keep Vein Open Last Admin: 04/22/21 15:17 Dose: 2.5 ml Documented by: CHARAN Labs: Laboratory Tests 04/22/21 04/22/21 04/22/21 Range/Units 15:12 15:12 15:19 WBC 10.20 (4.0-11.0) K/uL RBC 5.33 (4.50-5.90) M/uL Hgb 12.4 L (13.0-17.0) g/dL Hct 40.1 (38.0-50.0) % MCV 75.2 L (80.0-98.0) fL MCH 23.3 L (27.0-32.0) pg MCHC 30.9 L (31.0-37.0) g/dL RDW Std Deviation 48.7 (28.0-62.0) fl RDW Coeff of Rober 18 H (11.0-15.0) % Plt Count 484 H (150-400) K/uL MPV 10.30 (7.40-12.00) fL Neut % (Auto) 73.0 (48.0-80.0) % Lymph % (Auto) 16.4 (16.0-40.0) % Gulf % (Auto) 5.8 (0.0-15.0) % Eos % (Auto) 4.2 (0.0-7.0) % Baso % (Auto) 0.6 (0.0-1.5) % Neut # (Auto) 7.5 H (1.4-5.7) K/uL Lymph # (Auto) 1.7 (0.6-2.4) K/uL Gulf # (Auto) 0.6 (0.0-0.8) K/uL Eos # (Auto) 0.4 (0.0-0.7) K/uL Baso # (Auto) 0.1 (0.0-0.1) K/uL Nucleated RBC % 0.0 /100WBC Nucleated RBCs # 0 K/uL Sodium 137 (136-148) mmol/L Potassium 4.6 (3.5-5.1) mmol/L Chloride 103 (98-107) mmol/L Carbon Dioxide 20.9 L (21.0-32.0) mmol/L BUN 8 (7.0-18.0) mg/dL Creatinine 0.9 (0.8-1.3) mg/dL Est Cr Clr Drug Dosing TNP Estimated GFR (MDRD) > 60.0 ml/min Glucose 145 H (74-106) mg/dL Calcium 8.4 L (8.5-10.1) mg/dL Total Bilirubin 0.5 (0.2-1.0) mg/dL AST 17 (15-37) IU/L ALT 17 (14-63) IU/L Alkaline Phosphatase 106 (46-116) U/L Troponin I < 0.050 (0.000-0.056) ng/mL Total Protein 7.0 (6.4-8.2) g/dL Albumin 3.1 L (3.4-5.0) g/dL Globulin 3.9 (2.6-4.0) g/dL Albumin/Globulin Ratio 0.8 L (0.9-1.6) SARS-CoV-2 RNA (MARCUS) NEGATIVE (NEGATIVE) Meds: Medications Generic Name Dose Route Start Last Admin Trade Name Freq PRN Reason Stop Dose Admin Sodium Chloride 1,000 mls @ 999 mls/hr 04/22/21 16:24 Normal Saline IV 04/22/21 17:24 .Bolus ONE Sodium Chloride 10 ml 04/22/21 15:11 04/22/21 15:17 Sodium Chloride 0.9% 10 Ml Syringe FLUSH 10 ml ASDIRECTED PRN Administration Keep Vein Open Sodium Chloride 2.5 ml 04/22/21 15:11 04/22/21 15:17 Sodium Chloride 0.9% 2.5 Ml Syringe FLUSH 2.5 ml ASDIRECTED PRN Administration Keep Vein Open Discontinued Medications Generic Name Dose Route Start Last Admin Trade Name Freq PRN Reason Stop Dose Admin Albuterol/Ipratropium 3 ml 04/22/21 15:11 04/22/21 15:17 Albuterol/Ipratropium 3.0-0.5 Mg/3 Ml Neb Soln NEB 04/22/21 15:12 3 ml ONETIME ONE Administration Albuterol/Ipratropium 3 ml 04/22/21 16:24 04/22/21 16:39 Albuterol/Ipratropium 3.0-0.5 Mg/3 Ml Neb Soln NEB 04/22/21 16:25 3 ml ONETIME ONE Administration Sodium Chloride 1,000 mls @ 999 mls/hr 04/22/21 15:11 04/22/21 15:18 Normal Saline IV 04/22/21 16:11 999 mls/hr .Bolus ONE Administration Methylprednisolone Sodium Succinate 125 mg 04/22/21 15:11 04/22/21 15:25 Methylprednisolone Sodium Succinate 125 Mg/2 Ml Sdv IVPUSH 04/22/21 15:12 125 mg ONETIME ONE Administration - Re-Assessments/Exams Free Text/Narrative Re-Assessment/Exam: 04/22/21 15:51 Patient is feeling better after a breathing treatment. His heart rate is gone down to 102, and he is speaking full sentences without respiratory distress. We will follow-up additional labs and x-ray imaging, reassessment. 04/22/21 16:22 Labs and imaging are unremarkable. Patient's heart rate has improved to the low 100s which chart searching appears to be normal for this patient. 04/22/21 16:46 Patient states that he feels much better after his breathing treatment. Although did not appreciate a lot of wheezing on his initial pulmonary exam the nebulizer treatment seem to help. Patient does state that he is breathing she at home. His chest x-ray does not reveal any evidence of pneumonia. Will give another DuoNeb and anticipate discharge home. Will place on 5-day course of prednisone for asthma and recommend PMD follow-up. Departure - Departure Time of Disposition: 16:47 Disposition: Home, Self-Care 01 Condition: Good Clinical Impression: Asthma exacerbation Qualifiers: Asthma severity: mild Asthma persistence: unspecified Qualified Code(s): J45.901 - Unspecified asthma with (acute) exacerbation - Discharge Information Prescriptions: predniSONE 40 mg PO DAILY 5 Days #10 tab Instructions: Asthma, Adult Referrals: PCP,None [Primary Care Provider] - Forms: ED Department Discharge Additional Instructions: Your emergency department work-up was largely unremarkable. Your chest x-ray does not show evidence of pneumonia. Your lab result does not show evidence of infection or damage to your heart muscle. I would like you to follow-up with your primary care physician in the next couple of days to the you can be reassessed. I did send some steroids to your pharmacy that can help keep your lungs open over the next few days. You did not have a significant amount of wheezing on arrival however the DuoNeb treatment seem to help with your symptoms. Please follow-up with your primary care physician and if things are getting worse please just come back to the emergency department. The following information is given to patients seen in the emergency department who are being discharged to home. This information is to outline your options for follow-up care. We provide all patients seen in our emergency department with a follow-up referral. The need for follow-up, as well as the timing and circumstances, are variable depending upon the specifics of your emergency department visit. If you don't have a primary care physician on staff, we will provide you with a referral. We always advise you to contact your personal physician following an emergency department visit to inform them of the circumstance of the visit and for follow-up with them and/or the need for any referrals to a consulting specialist. The emergency department will also refer you to a specialist when appropriate. This referral assures that you have the opportunity for follow-up care with a specialist. All of these measure are taken in an effort to provide you with optimal care, which includes your follow-up. Under all circumstances we always encourage you to contact your private physician who remains a resource for coordinating your care. When calling for follow-up care, please make the office aware that this follow-up is from your recent emergency room visit. If for any reason you are refused follow-up, please contact the [facility] Emergency Department at and asked to speak to the emergency department charge nurse. Please follow up with your primary care physician. If you do not have a primary care physician, see below: [facility] [address] [place] [id number] [facility] [address] [place], [place] [id number] [facility] [address], [place] [address] Sepsis Event Note (ED) - Focused Exam Vital Signs: Vital Signs Temp Pulse Resp BP Pulse Ox 04/22/21 15:10 97.0 F 122 H 30 H 95/63 95 - My Orders Last 24 Hours: My Active Orders 04/22/21 15:11 EKG Documentation Completion [RC] STAT Sodium Chloride 0.9% [Saline Flush] 10 ml FLUSH ASDIRECTED PRN Sodium Chloride 0.9% [Saline Flush] 2.5 ml FLUSH ASDIRECTED PRN Saline Lock Insert [OM.PC] Stat 04/22/21 15:12 Pulse Oximetry [RC] ASDIRECTED B-TYPE NATRIURETIC PEPTIDE,BNP [CHEM] Stat 04/22/21 16:24 Sodium Chloride 0.9% [Normal Saline] 1,000 ml IV .Bolus - Assessment/Plan Last 24 Hours: My Active Orders 04/22/21 15:11 EKG Documentation Completion [RC] STAT Sodium Chloride 0.9% [Saline Flush] 10 ml FLUSH ASDIRECTED PRN Sodium Chloride 0.9% [Saline Flush] 2.5 ml FLUSH ASDIRECTED PRN Saline Lock Insert [OM.PC] Stat 04/22/21 15:12 Pulse Oximetry [RC] ASDIRECTED B-TYPE NATRIURETIC PEPTIDE,BNP [CHEM] Stat 04/22/21 16:24 Sodium Chloride 0.9% [Normal Saline] 1,000 ml IV .Bolus
[2021-04-22 15:54] LABS: BLOOD UREA NITROGEN,BUN 8 mg/dL (7.0-18.0); CARBON DIOXIDE,CO2 20.9 mmol/L (21.0-32.0); CHLORIDE,CL 103 mmol/L (98-107); GLUCOSE RANDOM 145 mg/dL (74-106); POTASSIUM,K 4.6 mmol/L (3.5-5.1); SODIUM,NA 137 mmol/L (136-148)
--- NOTE | 2021-04-22 16:17 | CR ---
For Patients: As a result of the Century Cures Act, medical imaging exams and procedure reports are released immediately into your electronic medical record. You may view this report before your referring provider. If you have questions, please contact your health care provider. INDICATION: sob. prior 04-11-21 TECHNIQUE: Chest 1 view. COMPARISON: 04/11/21. FINDINGS: Cardiovascular and mediastinum: Heart size and vasculature are normal in caliber and appearance. Mediastinum is within normal limits. Lungs and pleural space: Lungs are clear. No sign of infiltrate or mass. No sign of pleural effusion. No pneumothorax. Bones and soft tissues: No significant findings. IMPRESSION: Unremarkable chest. Dictated by: Bairon Headley MD @ 04/22/2021 16:15:43 (Electronically Signed)
[2021-04-22 17:19] VITALS: BP 100/63; PULSE 106
== END 2021-04-22 17:19 | disposition home or self-care (01) ==
LOC: MW.ED 15:10
DX: J45.901 Unspecified asthma with (acute) exacerbation (principal); E78.00 Pure hypercholesterolemia, unspecified; I10 Essential (primary) hypertension; K21.9 Gastro-esophageal reflux disease without esophagitis; E11.40 Type 2 diabetes mellitus with diabetic neuropathy, unspecified; E66.9 Obesity, unspecified; Z68.32 Body mass index [BMI] 32.0-32.9, adult; Z88.5 Allergy status to narcotic agent; Z88.8 Allergy status to other drugs, medicaments and biological substances; Z79.899 Other long term (current) drug therapy; Z20.822 Contact with and (suspected) exposure to COVID-19
CPT/HCPCS: 36415; 71045; 80053; 83880; 84484; 85025; 87635; 93005; 94640; 96374; 99285; J2930; J7030; J7620-GY; U0002

== ENCOUNTER 2021-07-29 11:31 | Emergency (ER) | payer MEDICAID ==
[2021-07-29] MEDS ORDERED: Albuterol/Ipratropium 3.0-0.5 MG/3 ML Neb Soln ONE (11:33)
[2021-07-29] MEDS ORDERED: methylPREDNISolone Sodium Succinate 125 MG/2 ML SDV IVPUSH ONE (11:36)
[2021-07-29] MEDS ORDERED: Albuterol/Ipratropium 3.0-0.5 MG/3 ML Neb Soln NEB ONE (11:36)
--- NOTE | 2021-07-29 12:01 | CR ---
Indication: Shortness of breath Comparison: Single view chest April 22, 2021 Technique: Single AP view chest Findings: There is hyperinflation and chronic interstitial change. There are persistent mildly increased interstitial markings which may represent pulmonary vascular congestion. There is no dense consolidation, effusion, pneumothorax. The cardiomediastinal silhouette is within normal limits. The bony thorax is grossly intact. Impression: Hyperinflation and chronic interstitial changes without evidence dense consolidation. Likely mild persistent pulmonary vascular congestion. Dictated by Shantanu Simon MD @ 07/29/2021 12:00:38 PM (Electronically Signed)
[2021-07-29 12:56] LABS: BLOOD UREA NITROGEN,BUN 9 mg/dL (7.0-18.0); CHLORIDE,CL 103 mmol/L (98-107); GLUCOSE RANDOM 163 mg/dL (74-106); POTASSIUM,K 3.4 mmol/L (3.5-5.1); SODIUM,NA 141 mmol/L (136-148)
--- NOTE | 2021-07-29 13:43 | EDM.PDOC ---
ED HPI GENERAL MEDICAL PROBLEM - General Chief Complaint: Respiratory Problem Stated Complaint: SOB Time Seen by Provider: 07/29/21 11:36 Source of Information: Reports: Patient History Limitations: Reports: No Limitations - History of Present Illness INITIAL COMMENTS - FREE TEXT/NARRATIVE: HISTORY AND PHYSICAL: History of present illness: Patient is a 61-year-old male who presents to the emergency room with complaints of shortness of breath and feeling like he is having a asthma attack. Patient denies any fever, chills, headache, change in vision, syncope or near syncope. Denies any chest pain, back pain, abdominal pain, nausea, vomiting, diarrhea, constipation or dysuria. Has not noted any blood in urine or stool. Patient has been eating and drinking appropriately. No recent travel or sick contacts. Review of systems: As per history of present illness and below otherwise all systems reviewed and negative. Past medical history: As per history of present illness and as reviewed below otherwise noncontributory. Surgical history: As per history of present illness and as reviewed below otherwise noncontributory. Social history: See social history for further information Family history: As per history of present illness and as reviewed below otherwise noncontributory. Physical exam: General: Well developed and well nourished. Alert and orientated x 3. Nontoxic in appearance and in no acute distress. Vital signs are stable and have been reviewed by me. Nursing notes were reviewed. HEENT: Atraumatic, normocephalic, pupils equal and reactive bilaterally, negative for conjunctival pallor or scleral icterus, mucous membranes moist, TMs normal bilaterally, throat clear, neck supple, nontender, trachea midline. No drooling or trismus noted. No meningeal signs. No hot potato voice noted. Lungs: Diminished to auscultation bilaterally. Expiratory wheezes bilaterally. No rales, or rhonchi. Chest nontender. Normal work of breathing, no accessory mu scles used. Heart: S1S2, regular rate and rhythm without overt murmur, gallops, or rubs. No JVD. No peripheral edema Abdomen: Soft, nondistended, nontender. Normoactive bowel sounds. Negative for masses or costovertebral tenderness. Skin: Intact, warm, dry. No lesions or rashes noted. Hematologic: No petechiae or purpra. Mucosa appropriate color and normal nail bed color and refill. Extremities: Atraumatic, moves all extremities per self without difficulty or deficits, negative for cords or calf pain. Neurovascular unremarkable. Neuro: Awake, alert, oriented. Cranial nerves II through XII unremarkable. Cerebellum unremarkable. Motor and sensory unremarkable throughout. Exam nonfocal. Psychiatric: Mood and affect are appropriate. Normal thought process. Answering questions appropriately. Please note that the patient was seen and evaluated during the 2019 SARS-CoV-2 novel coronavirus pandemic period. Community viral transmission is ongoing at time of this encounter and the emergency department is operating under pandemic response procedures. Medical Decision Making: Patient is a 61-year-old male who presents to the emergency room with a asthma attack. States he has a history of asthma and is concerned he is having exacerbation. Oxygen saturation is within normal limits although he does have wheezing noted. He declines wanting COVID-19 testing. We will get a chest x- ray give him steroid and nebulizer. Patient does feel improved. Vital signs are stable. I have talked with the patient about today's findings, in addition to providing specific details for plan of care. Reassessment at the time of disposition demonstrates that the patient is in no acute distress. The patient is stable for discharge, counseling was provided and we discussed in great detail signs and symptoms that would prompt them to return to the Emergency Department. Medication, follow up and supportive care measures were reviewed and discussed. Voices understanding and is agreeable to plan of care. Denies any further questions or concerns at this time. Diagnostics: Chest x-ray Therapeutics: DuoNeb x2, Solu-Medrol Prescription: Prednisone Impression: Asthma exacerbation Plan: 1. You were evaluated today on an emergent basis. Your chest x-ray and lab work are unremarkable. Prescription for prednisone, steroid, has been [facility]. 2. You can alternate Tylenol and ibuprofen as needed for pain and fever management. 3. We encourage you to follow up with your primary care provider and/or recommended specialist in the next few days for re-evaluation and further care/management. 4. If your symptoms should worsen, new symptoms develop or any of the signs and symptoms we discussed should arise please return to the emergency room or call 911 (if needed). Definitive disposition and diagnosis as appropriate pending reevaluation and review of above. - Related Data Allergies Allergy/AdvReac Type Severity Reaction Status Date / Time hydrocodone Allergy Hives Verified 07/29/21 11:37 ketorolac [From Toradol] Allergy Cannot Verified 07/29/21 11:37 Remember sucralfate [From Carafate] Allergy Hives Verified 07/29/21 11:37 tamsulosin Allergy Other Verified 07/29/21 11:37 theophylline Allergy Cannot Verified 07/29/21 11:37 Remember tramadol Allergy Hives Verified 07/29/21 11:37 Home Meds: Home Meds Fluticasone/Salmeterol [Advair 500-50] 1 inh INH BID 12/30/14 [History] Lisinopril 10 mg PO DAILY 12/30/14 [History] Testosterone Cypionate 200 mg IM Q14D 12/30/14 [History] amLODIPine [Norvasc] 10 mg PO DAILY 12/30/14 [History] atorvaSTATin [Lipitor] 20 mg PO BEDTIME 12/30/14 [History] Montelukast [Singulair] 10 mg PO BEDTIME 10/07/15 [History] Omeprazole 40 mg PO ACBREAKFAST 06/16/16 [History] Pregabalin [Lyrica] 50 mg PO BID 06/16/16 [History] risperiDONE 2 mg PO BEDTIME 06/16/16 [History] sitaGLIPtin Phos/Metformin HCl [Janumet Xr 50-1,000 mg Tablet] 2 tab PO WITHDINNER 06/16/16 [History] Benztropine Mesylate 0.25 mg PO BID 06/18/18 [History] traZODone HCl [Trazodone HCl] 100 mg PO BEDTIME 06/18/18 [History] Metoprolol Succinate 50 mg PO BEDTIME 03/08/20 [History] Levalbuterol Tartrate [Xopenex Hfa] 2 puff INH Q6H PRN 04/10/20 [History] Triamcinolone Acetonide [Triamcinolone Acetonide 0.1% Crm] 1 applic TOP BID PRN 04/22/21 [History] predniSONE [Prednisone] 2.5 mg PO DAILY 04/22/21 [History] risperiDONE [Risperdal] 1.5 mg PO QAM 04/22/21 [History] Past Medical History HEENT History: Reports: Allergic Rhinitis, Cataract, Impaired Vision Other HEENT History: wears glasses, has no teeth- no dentures Cardiovascular History: Reports: High Cholesterol, Hypertension Respiratory History: Reports: Asthma Other Respiratory History: denies COPD Gastrointestinal History: Reports: Colon Polyp, Diverticulosis, GERD, Hiatal Hernia Genitourinary History: Reports: None Musculoskeletal History: Reports: Fracture, Osteoarthritis, Osteoporosis Other Musculoskeletal History: hx of fx leg Neurological History: Reports: Neuropathy, Diabetic Other Neuro History: 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 Was taking it for ten years Oncologic (Cancer) History: Reports: None Dermatologic History: Reports: Other (See Below) Other Dermatologic History: Abscess - Infectious Disease History Infectious Disease History: Reports: MRSA Other Infectious Disease History: Right leg wound-healed - Past Surgical History Head Surgeries/Procedures: Reports: None HEENT Surgical History: Reports: Cataract Surgery Cardiovascular Surgical History: Reports: None Respiratory Surgical History: Reports: None GI Surgical History: Reports: Colonoscopy, EGD Endocrine Surgical History: Reports: None Neurological Surgical History: Reports: None Musculoskeletal Surgical History: Reports: ORIF, Other (See Below) Other Musculoskeletal Surgeries/Procedures:: I&D R calf, ORIF right leg- hardware removed Dermatological Surgical History: Reports: None Social & Family History - Family History Family Medical History: No Pertinent Family History - Tobacco Use Tobacco Use Status *Q: Never Tobacco User - Caffeine Use Caffeine Use: Reports: Soda - Recreational Drug Use Recreational Drug Use: No - Living Situation & Occupation Living situation: Reports: Single ED ROS GENERAL - Review of Systems Review Of Systems: Comprehensive ROS is negative, except as noted in HPI. ED EXAM, GENERAL - Physical Exam Exam: See Below (See dictation) Course - Vital Signs Last Recorded V/S: Last Vital Signs Temp 97.4 F 07/29/21 13:50 Pulse 101 H 07/29/21 13:50 Resp 18 07/29/21 13:50 BP 110/68 07/29/21 13:50 Pulse Ox 94 L 07/29/21 13:50 - Orders/Labs/Meds Labs: Laboratory Tests 10/28/21 10/28/21 10/28/21 Range/Units 12:13 12:13 12:13 WBC 9.21 (4.0-11.0) K/uL RBC 5.31 (4.50-5.90) M/uL Hgb 12.3 L (13.0-17.0) g/dL Hct 40.1 (38.0-50.0) % MCV 75.5 L (80.0-98.0) fL MCH 23.2 L (27.0-32.0) pg MCHC 30.7 L (31.0-37.0) g/dL RDW Std Deviation 53.3 (28.0-62.0) fl RDW Coeff of Rober 19 H (11.0-15.0) % Plt Count 216 (150-400) K/uL Neut % (Auto) 71.9 (48.0-80.0) % Lymph % (Auto) 20.4 (16.0-40.0) % [place] % (Auto) 5.1 (0.0-15.0) % Eos % (Auto) 2.3 (0.0-7.0) % Baso % (Auto) 0.3 (0.0-1.5) % Neut # (Auto) 6.6 H (1.4-5.7) K/uL Lymph # (Auto) 1.9 (0.6-2.4) K/uL [place] # (Auto) 0.5 (0.0-0.8) K/uL Eos # (Auto) 0.2 (0.0-0.7) K/uL Baso # (Auto) 0.0 (0.0-0.1) K/uL Nucleated RBC % 0.0 /100WBC Nucleated RBCs # 0 K/uL Sodium 141 (136-148) mmol/L Potassium 3.4 L (3.5-5.1) mmol/L Chloride 103 (98-107) mmol/L Carbon Dioxide 26.0 (21.0-32.0) mmol/L BUN 9 (7.0-18.0) mg/dL Creatinine 0.9 (0.8-1.3) mg/dL Est Cr Clr Drug Dosing 93.41 mL/min Estimated GFR (MDRD) > 60.0 ml/min Glucose 163 H (74-106) mg/dL Calcium 9.0 (8.5-10.1) mg/dL Total Bilirubin 0.4 (0.2-1.0) mg/dL AST 22 (15-37) IU/L ALT 31 (14-63) IU/L Alkaline Phosphatase 82 (46-116) U/L Troponin I < 0.050 (0.000-0.056) ng/mL B-Natriuretic Peptide 36 (<100) PG/ML Total Protein 7.1 (6.4-8.2) g/dL Albumin 3.1 L (3.4-5.0) g/dL Globulin 4.0 (2.6-4.0) g/dL Albumin/Globulin Ratio 0.8 L (0.9-1.6) Meds: Medications Discontinued Medications Generic Name Dose Route Start Last Admin Trade Name Freq PRN Reason Stop Dose Admin Albuterol/Ipratropium Confirm 07/29/21 11:33 07/29/21 11:44 Albuterol/Ipratropium 3.0-0.5 Mg/3 Ml Neb Soln Administered 07/29/21 11:34 Not Given Dose 3 ml .ROUTE .STK-MED ONE Albuterol/Ipratropium 6 ml 07/29/21 11:36 07/29/21 11:44 Albuterol/Ipratropium 3.0-0.5 Mg/3 Ml Neb Soln NEB 07/29/21 11:37 6 ml ONETIME ONE Administration Methylprednisolone Sodium Succinate 125 mg 07/29/21 11:36 07/29/21 11:44 Methylprednisolone Sodium Succinate 125 Mg/2 Ml Sdv IVPUSH 07/29/21 11:37 125 mg ONETIME ONE Administration Departure - Departure Time of Disposition: 13:42 Disposition: Home, Self-Care 01 Clinical Impression: Asthma exacerbation - Discharge Information Instructions: Asthma, Adult Referrals: Moe Clayton MD [Primary Care Provider] - Forms: ED Department Discharge Additional Instructions: The following information is given to patients seen in the emergency department who are being discharged to home. This information is to outline your options for follow-up care. We provide all patients seen in our emergency department with a follow-up referral. The need for follow-up, as well as the timing and circumstances, are variable depending upon the specifics of your emergency department visit. If you don't have a primary care physician on staff, we will provide you with a referral. We always advise you to contact your personal physician following an emergency department visit to inform them of the circumstance of the visit and for follow-up with them and/or the need for any referrals to a consulting specialist. The emergency department will also refer you to a specialist when appropriate. This referral assures that you have the opportunity for follow-up care with a specialist. All of these measure are taken in an effort to provide you with optimal care, which includes your follow-up. Under all circumstances we always encourage you to contact your private physician who remains a resource for coordinating your care. When calling for follow-up care, please make the office aware that this follow-up is from your recent emergency room visit. If for any reason you are refused follow-up, please contact the [facility] Emergency [facility] at and asked to speak to the emergency department charge nurse. [facility] [address] [place] [id number] [place] [address] Thank you for choosing the [facility] emergency department in [place] for your medical needs today. It was a pleasure caring for you. Today you were seen in the emergency department for shortness of breathe Your prescription was electronically sent to: [facility] 1. You were evaluated today on an emergent basis. Your chest x-ray and lab work are unremarkable. Prescription for prednisone, steroid, has been given and [facility]. 2. You can alternate Tylenol and ibuprofen as needed for pain and fever manag ement. 3. We encourage you to follow up with your primary care provider and/or recommended specialist in the next few days for re-evaluation and further care/management. 4. If your symptoms should worsen, new symptoms develop or any of the signs and symptoms we discussed should arise please return to the emergency room or call 911 (if needed). Sepsis Event Note (ED) - Evaluation Sepsis Screening Result: No Definite Risk - Focused Exam Vital Signs: Vital Signs Temp Pulse Resp BP Pulse Ox 07/29/21 13:50 97.4 F 101 H 18 110/68 94 L 07/29/21 11:36 97.8 F 111 H 22 H 114/70 93 L
[2021-07-29 13:52] VITALS: BP 110/68; PULSE 101
== END 2021-07-29 13:55 | disposition home or self-care (01) ==
LOC: MW.ED 11:31
DX: J45.901 Unspecified asthma with (acute) exacerbation (principal); Z88.5 Allergy status to narcotic agent; Z88.6 Allergy status to analgesic agent; Z88.8 Allergy status to other drugs, medicaments and biological substances; Z79.899 Other long term (current) drug therapy
CPT/HCPCS: 36415; 71045; 80053; 83880; 84484; 85025; 96374; 99285; J2930; J7620-GY

== ENCOUNTER 2022-01-13 20:08 | Emergency (ER) | payer MEDICAID ==
[2022-01-13] MEDS ORDERED: Sodium Chloride 0.9% 10 ML Syringe FLUSH PRN (20:34)
[2022-01-13] MEDS ORDERED: Sodium Chloride 0.9% 2.5 ML Syringe FLUSH PRN (20:34)
[2022-01-13] MEDS ORDERED: Ondansetron 4 MG/2 ML SDV IVPUSH ONE (20:35)
[2022-01-13 21:26] LABS: BLOOD UREA NITROGEN,BUN 23 mg/dL (7.0-18.0); CARBON DIOXIDE,CO2 26.3 mmol/L (21.0-32.0); CHLORIDE,CL 99 mmol/L (98-107); GLUCOSE RANDOM 110 mg/dL (74-106); LIPASE 297 U/L (73-393); POTASSIUM,K 3.2 mmol/L (3.5-5.1); SODIUM,NA 137 mmol/L (136-148)
[2022-01-13] MEDS ORDERED: Iopamidol 755 MG/ML 500 ML Multipack Bottle IVPUSH STA (21:54)
[2022-01-13] MEDS ORDERED: Sodium Chloride 0.9% 1,000 ML IV ONE (23:40)
[2022-01-14] MEDS ORDERED: Doxycycline 100 MG Cap PO ONE (02:01)
[2022-01-14] MEDS ORDERED: predniSONE 20 MG Tab PO ONE (02:01)
[2022-01-14] MEDS ORDERED: Amoxicillin/Clavulanate K 875-125 MG Tab PO ONE (02:02)
[2022-01-14 02:14] VITALS: BP 102/60; PULSE 95
== END 2022-01-14 02:24 | disposition home or self-care (01) ==
LOC: MW.ED 20:08
DX: J18.9 Pneumonia, unspecified organism (principal); K21.9 Gastro-esophageal reflux disease without esophagitis; J44.9 Chronic obstructive pulmonary disease, unspecified; E78.00 Pure hypercholesterolemia, unspecified; I10 Essential (primary) hypertension; E11.9 Type 2 diabetes mellitus without complications; E66.9 Obesity, unspecified; Z68.27 Body mass index [BMI] 27.0-27.9, adult; Z88.5 Allergy status to narcotic agent; Z88.6 Allergy status to analgesic agent; Z88.8 Allergy status to other drugs, medicaments and biological substances; Z79.899 Other long term (current) drug therapy; Z20.822 Contact with and (suspected) exposure to COVID-19
CPT/HCPCS: 36415; 71046; 74177; 80053; 81003; 83605; 83690; 83880; 84484; 85025; 85610; 87040; 87635; 93005; 96374; 99285; A9270; J2405; J3490; J7030; Q9967; U0002

== ENCOUNTER 2022-02-06 10:45 | Emergency (ER) | payer MEDICAID ==
[2022-02-06] MEDS ORDERED: Albuterol/Ipratropium 3.0-0.5 MG/3 ML Neb Soln NEB ONE ×2 (11:46→12:16)
[2022-02-06 11:54] LABS: BLOOD UREA NITROGEN,BUN 15 mg/dL (7.0-18.0); CARBON DIOXIDE,CO2 22.4 mmol/L (21.0-32.0); CHLORIDE,CL 105 mmol/L (98-107); GLUCOSE RANDOM 150 mg/dL (74-106); POTASSIUM,K 3.7 mmol/L (3.5-5.1); SODIUM,NA 140 mmol/L (136-148)
[2022-02-06] MEDS ORDERED: Magnesium Oxide 400 MG Tab PO ONE (12:00)
[2022-02-06] MEDS ORDERED: methylPREDNISolone Sodium Succinate 40 MG/1 ML SDV IVPUSH ONE (12:16)
[2022-02-06] MEDS ORDERED: Acetaminophen 500 MG Tab PO ONE (12:17)
[2022-02-06 14:51] VITALS: BP 99/69; PULSE 85
[2022-02-06] MEDS ORDERED: Iopamidol 755 MG/ML 500 ML Multipack Bottle IVPUSH ONE (18:15)
== END 2022-02-06 15:36 | disposition home or self-care (01) ==
LOC: MW.ED 10:45
DX: J45.901 Unspecified asthma with (acute) exacerbation (principal); E78.00 Pure hypercholesterolemia, unspecified; I10 Essential (primary) hypertension; J44.9 Chronic obstructive pulmonary disease, unspecified; E11.9 Type 2 diabetes mellitus without complications; K21.9 Gastro-esophageal reflux disease without esophagitis; M19.90 Unspecified osteoarthritis, unspecified site; E66.9 Obesity, unspecified; Z68.30 Body mass index [BMI] 30.0-30.9, adult; Z88.5 Allergy status to narcotic agent; Z88.8 Allergy status to other drugs, medicaments and biological substances; Z88.6 Allergy status to analgesic agent; Z79.899 Other long term (current) drug therapy; Z20.822 Contact with and (suspected) exposure to COVID-19
CPT/HCPCS: 36415; 71045; 71275; 80053; 83735; 84484; 85025; 85610; 87635; 93005; 96374; 99285; A9270; J2920; Q9967; J7620-GY; U0002